=== PATIENT | male | born 1945 | race Caucasian/White ===

== ENCOUNTER 2024-11-05 22:46 | Inpatient (IN) | payer MEDICARE, BC, SELFPAY ==
[2024-11-05] VITALS (8 sets, daily range): BP systolic 104–132; BP diastolic 52–79; BMI 22.2
[2024-11-05 16:04] LABS: % Basophils 0.3 % (0-2); % Eosinophils 0.2 % (0-6); % Immature Granulocytes 0.3 % (0-0.5); % Lymphocytes 11.5 % (20.5-51.1); % Monocytes 9.6 % (1.7-9.3); % Neutrophils 78.1 % (42.2-75.2); Absolute Monocytes 0.8 10^3/uL (0.1-0.6); Absolute Neutrophils 6.8 10^3/uL (1.4-6.5); Hemoglobin 14.2 g/dL (13.0-18.0); Mean Corp Hgb Conc. 34.6 g/dL (33.0-37.0); Mean Corpuscular Hgb 32.9 pg (27.0-31.0); Mean Corpuscular Volume 94.9 fL (80.0-94.0); Mean Platelet Volume 10.4 fL (7.4-10.4); Nucleated Red Blood Cells % 0 % (-); Platelet Count 138 10^3/uL (130-400); Red Blood Cell Count 4.32 10^6/uL (4.70-6.10); Red Cell Dist. Width 14.6 % (11.5-14.5); White Blood Cell Count 8.8 10^3/uL (4.8-10.8)
[2024-11-05 16:21] LABS: ALT (SGPT) 20 U/L (0-50); AST (SGOT) 20 U/L (17-59); Albumin 3.4 g/dl (3.5-5.0); Alkaline Phosphatase 88 U/L (38-126); Blood Urea Nitrogen 40 mg/dl (9-20); Calcium 9.2 mg/dl (8.4-10.2); Carbon Dioxide 23 mmol/L (22-30); Glucose 107 mg/dl (70-99); Total Bilirubin 1.5 mg/dl (0.2-1.3); Total Protein 6.3 g/dl (6.3-8.2); eGFR 55.19
[2024-11-05 16:30] LABS: Troponin I 0.056 ng/ml
[2024-11-05 16:36] LABS: Chloride 99 mmol/L (98-107); Potassium 4.5 mmol/L (3.5-5.1); Sodium 130 mmol/L (135-145)
--- NOTE | 2024-11-05 19:25 | ED.GENMED ---
History of Present Illness
General
Chief Complaint: Breathing Problem
Time Seen by Provider: 11/05/24 18:15
History of Present Illness
History of Present Illness:
79-year-old male with history of CHF presently with a life vest in place, CAD status post CABG, A-fib on Xarelto, hypertension presenting to the emergency department for shortness of breath. Patient has been following with [facility]
[place] for his cardiac care, was admitted to their facility from 09/28 to 10/06 for what sounds like acute on chronic CHF. Patient arrives with daughter who notes that he had fluid on his lungs on on his heart with diuretics. He was discharged
home, however had been living in [place]. He recently moved to this area with daughter. He has been doing well with home health care, however in the past 3 days has had increased difficulty breathing and dyspnea on exertion. Denies cough or
fever. Denies chest pain. LifeVest was just placed last . Notes compliance with his medications. Denies additional acute medical complaints
Phy Exam
Physical Exam
Physical Exam:
General: Well-appearing, no clinical signs of dehydration, nontoxic and in no acute distress
HEENT: protecting airway
Neck: appears supple
CV: Normal heart rate, regular rhythm
Resp: Mild tachypnea with lungs clear to auscultation
Abd: Soft and non-distended, no tenderness to palpation, normal bowel sounds
Extremities: No deformities, no swelling, no erythema
Neuro: alert, no focal neurologic deficit
: deferred
Rectal: deferred
Psych: Normal affect
Skin: Intact
Scores
Heart Failure Risk
Heart Failure Risk Score: Yes
History of Stroke or TIA: No
History of intubation for respiratory distress: No
Heart rate on ED arrival >/= 110: No
SaO2 <90% on arrival on room air: Yes
HR >/=110 during 3min walk test (or too ill to perform test): Yes
ECG has acute ischemic changes: No
Urea >/=12mmol/L (BUN 33.6mg/dL): No
Serum CO2>/=35mmol/L: No
Troponin I or T elevated to ND Level (0.4mg/dL): Yes
NT-proBNP >/=5,000ng/L (5,000pg/ml): Yes
HF Risk Score: 6
Admission Status: VERY HIGH RISK 55.3% Consider admission to hospital
Course
Orders/Labs/Results
Orders:
Orders
11/05/24 14:36
Electrocardiogram (*1) Urgent
Reason for Study: Chest Pain
11/05/24 Dinner
Cholesterol Lowering
At Your Request: Full Participation
Cholesterol Lowering: Sodium, 2 Gram
11/05/24 15:49
Complete Blood Count/With Diff Urgent
Comprehensive Metabolic Panel Urgent
NT-proBNP Urgent
Comment: ADD ON
Troponin I Urgent
11/05/24 18:34
CT Chest PE Study Urgent
Comment:
Reason For Exam: SOB, hypoxic
11/05/24 19:24
Electrocardiogram (*1) Urgent
Reason for Study: Shortness of Breath
11/05/24 19:49
Troponin I Urgent
11/05/24 20:55
Cefepime HCl [Maxipime] 2,000 mg IV NOW STA
Vancomycin [Vancocin] 1,500 mg 0.9% Sodium Chloride 500 ml [Nss] 500 ml IV NOW
11/05/24 22:00
Flush (0.9% Sodium Chloride) [Flush (Nss)] See Dose Instructions IV PER PROTOCOL
11/05/24 22:35
Admit/Transfer Patient As Directed
Co-Sign Provider:
Level of Care: Inpatient admission
Assign to:: IMU- Intermediate Care
Physician / Group: jesus alberto bullard
Diagnosis: Pneumonia, hypoxic respiratory insufficiency
Reason for Hospitalization: pneumonia, hypoxic respiratory insufficiency
Expected length of stay greater than two midnights?: Yes
ELOS- Estimated Length of Stay in days: 3
I certify the patient meets the requirements for IP care: Yes
PRN Pain Medication Management As Directed
May give lesser potent ordered pain med per pt: Yes
preference::
Protocol:: Medication orders for pain may be administered in a
manner that supports deferring to patient preference
when the pt is:
- Requesting an ordered lesser potent pain medication.
Least to most potent pain medications are defined
as: acetaminophen < NSAID < tramadol < opioids
(morphine, oxycodone, hydromorphone).
- Requesting a lesser dose of the same medication IF
ORDERED.
- Requesting a less intrusive route of administration
if both routes are prescribed by the provider (PO <
IV).
11/05/24 22:37
Code Status As Directed
Resuscitation Status: Full Code
11/05/24 22:43
MRSA Screen Routine
MARY KAY Source: Nose
Specimen Description:
11/05/24 23:37
Albuterol [ProAIR HFA INHALER] 2 puff INH R Q6HPRN PRN
Nitroglycerin Sublingual [Nitrostat (Sublingual)] 0.4 mg SL [id number] PRN
11/05/24 23:37
Respiratory Culture/Gram Stain Urgent
MARY KAY Source: Sputum
Specimen Description:
Activity As Directed
Activity Level: Out of Bed-Early Mobility
Intake/ Output As Directed
Frequency: Per unit guidelines
Vital Signs As Directed
Frequency: Per unit guidelines
Weight As Directed
Frequency: Daily
Type of Scale: Standing Scale
Comment: Daily morning weight. If unable to stand, use balanced bed scale.
Weight As Directed
Frequency: Once
Type of Scale: Standing Scale
Comment: Upon Admission. If unable to stand, use balanced bed scale.
O2 Therapy [RESP] Routine
Titrate/Wean O2 to maintain O2 sat greater than (%): 93
Special Instructions: Wean as tolerated
Rx Pep / Acapela [RESP] Routine
Pt Eval And Treat Routine
Activity Level: Out of Bed-Early Mobility
11/06/24 00:00
Doxycycline Hyclate [Vibramycin] 100 mg 0.9% Sodium Chloride 250 ml [Nss] 250 ml IV Q12H
11/06/24 06:00
Cefepime HCl [Maxipime] 1,000 mg IV Q8H
11/06/24 06:22
Basic Metabolic Panel IN AM
Complete Blood Count/No Diff IN AM
11/06/24 08:00
Ascorbic Acid [Vitamin C] 250 mg PO DAILY
Brimonidine [Alphagan 0.2% Eye Drops] 1 drop RIGHT EYE BID
Cholecalciferol (Vitamin D3) [VITAMIN D3 (cholecalciferol)] 25 mcg PO DAILY
Dapagliflozin [Farxiga] 10 mg PO DAILY
Fluticasone/Salmeterol 115/21 [Advair Hfa 115/21 Mcg Inhaler] 2 puff INH R BID
Furosemide [Lasix] 40 mg PO DAILY
Ipratropium/Albuterol Sulfate [Duoneb] 3 ml INH R QID
Metoprolol Xl [Toprol Xl] 25 mg PO BID
Montelukast Sodium [Singulair] 10 mg PO DAILY
Multivitamin [Theragran] 1 tablet PO DAILY
Ofloxacin [Ocuflox] 1 drop RIGHT EYE BID
Prednisolone Acetate [Pred Forte 1% Eye Drops] 1 drop RIGHT EYE BID
Rivaroxaban [Xarelto] 20 mg PO DAILY
Sacubitril 24/Valsartan 26 [Entresto 24 mg/26 mg] 1 tab PO BID
11/06/24 22:00
Melatonin 5 mg PO HSPRN PRN
Abnormal Lab Results
11/05/24 11/05/24
15:49 19:49
RBC 4.32 L 10^6/uL
(4.70-6.10)
MCV 94.9 H fL
(80.0-94.0)
MCH 32.9 H pg
(27.0-31.0)
RDW 14.6 H %
(11.5-14.5)
Absolute Neuts (auto) 6.8 H 10^3/uL
(1.4-6.5)
Absolute Lymphs (auto) 1.0 L 10^3/uL
(1.2-3.4)
Absolute Monos (auto) 0.8 H 10^3/uL
(0.1-0.6)
Neutrophils % 78.1 H %
(42.2-75.2)
Lymphocytes % 11.5 L %
(20.5-51.1)
Monocytes % 9.6 H %
(1.7-9.3)
Sodium 130 L mmol/L
(135-145)
BUN 40 H mg/dl
(9-20)
Glucose 107 H mg/dl
(70-99)
Total Bilirubin 1.5 H mg/dl
(0.2-1.3)
Troponin I 0.056 H* ng/ml 0.042 H* ng/ml
Albumin 3.4 L g/dl
(3.5-5.0)
11/05/24 15:49
11/05/24 15:49
Vital Signs
Initial and Last Documented VS:
Initial Vital Signs
BP Pulse Ox
132/79 92
11/05/24 14:29 11/05/24 14:29
Last Documented Vital Signs
Temp Pulse Resp BP Pulse Ox
97.8 F 95 18 116/86 92
11/07/24 03:36 11/07/24 08:32 11/07/24 07:32 11/07/24 08:32 11/07/24 07:32
MDM/Problems Addressed
MDM/Problems Addressed:
79-year-old male with history of CAD status post CABG, CHF currently with LifeVest in place, hypertension, A-fib on Xarelto presenting for shortness of breath for 3 days. Vital signs on arrival are reportedly normal, however upon examination, noted
to be satting at 87% on room air.
On exam, patient is slightly tachypneic, no acute distress. Lung exam is relatively unremarkable. Patient's history, recent admission for CHF, symptom presentation, ultimate concern for acute on chronic CHF. No lower extremity edema. However
patient notes that he felt very similarly during his previous admission at [facility]. No records available at this hospital. Attempting to get records at this time. Plan for laboratory analysis. Will also plan for CT chest
imaging, in the setting of hypoxia. Daughter notes that patient has had fluid around his heart. Pericardial effusion is also consideration.
19:00 -initial labs shows slightly elevated troponin. No prior for comparison. EKG shows diffuse T wave inversions, however no prior for comparison. Will send repeat troponin and EKG
20: Second troponin without any elevation. EKG remains stable. BNP is elevated. CT of the chest shows concern for multifocal pneumonia. On reassessment, patient does note mild cough that has been ongoing. Plan for admission for antibiotics and
continued monitoring given presenting hypoxia
*EKG
Interpreted by ED Provider?: Yes
EKG Intrepretation Date: 11/05/24
EKG Intrepretation Time: 19:33
Interpretation: abnormal
Comparison EKG: no comparison EKG present
Heart Rate: 73
Rate: normal
Rhythm: sinus
[place]: normal axis
Interval: normal interval
QRS Pattern: right bundle branch block
Ischemia: T-wave inversion
*Critical Care Note
Total Time (30-74mins, 75-104mins- exclusive of procedures): Not Applicable
ED Attending Note
-
Portions of this chart may have been created with voice recognition software.� Occasional wrong word or��sound alike� substitutions may have occurred due to the inherent limitations of voice recognition software.
Discharge Plan
Departure
Patient Disposition: Admit
Date of Disposition: 11/05/24
Time of Disposition: 20:55
Presentation/result/management discussed w/ accepting MD/DO: Hospitalist
Patient with high blood pressure during this ER visit?: No
Condition: Fair
Discharge Problem:
Multifocal pneumonia, Hypoxia
Interventions
Interventions:
*Risk Screen - Suicide Last Done: 11/05/24 23:51
*General Assessment Last Done: 11/05/24 18:51
*Neglect/Abuse Screening Last Done: 11/05/24 23:51
*ED- Fall Risk Assessment Last Done: 11/05/24 18:51
*ED COVID-19 Vaccine History Last Done: 11/05/24 18:51
*Nursing Disposition Last Done: 11/05/24 23:51
ED- Cardiac Assessment Last Done: 11/05/24 20:43
Discharge Date and Time
Discharge Date/Time: 11/05/24 23:51
[2024-11-05 19:54] LABS: NT-proBNP 6580 pg/ml
[2024-11-05 20:21] LABS: Troponin I 0.042 ng/ml
--- NOTE | 2024-11-05 21:57 | HPS.HSE ---
Family Physician
-
Family Physician: * NONE
Chief Complaint
-
shortness of breath
History of Present Illness
Patient is an 79-year-old male with past medical history of CHF, CAD, a-fib and hypertension who presented to [facility] ED for evaluation of shortness of breath. Patient with recent hospitalization at [facility] for similar 09/28/24-10/06/24. Patient
states he was doing well until the last 3 days where he has had dyspnea on exertion and increased fatigue. Patient follows with Cardiology at [facility], was recently living in [place] and recently moved to area with daughter. Last he had a life
vest placed. Patient reports the chills on and off the past few days. Denies any fevers, chest pain, nausea, vomiting, constipation or diarrhea.
Medical History
Past Medical History
Past Medical History: Reports Other
Additional Past Medical History:
CHF
CAD
a-fib
hypertension
Past Surgical History: Reports Other
Additional Past Surgical History:
cataract extraction
7eye surgeries in last 3 years
cornea transplant
Social History
Tobacco: Former Smoker
Alcohol: None
Drug: None
Living: With Family
Family History
Family History: Not pertinent
Allergies / Home Medications
Allergies reflects when Allergies were last updated in [facility].
Home Medications with original date entered in [facility]
Allergy/Medication List:
Allergies
Allergy/AdvReac Type Severity Reaction Status Date / Time
atorvastatin Allergy Unknown Verified 11/05/24 14:34
clarithromycin [From Biaxin] Allergy Unknown Verified 11/05/24 14:35
pantoprazole Allergy Unknown Verified 11/05/24 14:35
Home Medications
albuterol sulfate 90 mcg/actuation aerosol inhaler 2 puff inhalation R Q6HPRN PRN sob 11/05/24
ascorbic acid (vitamin C) 250 mg tablet (Vitamin C) 250 mg PO DAILY 11/05/24
brimonidine 0.2 % eye drops 1 drp RIGHT EYE BID 11/05/24
cholecalciferol (vitamin D3) 25 mcg (1,000 unit) tablet (Vitamin D3) 25 mcg PO DAILY 11/05/24
dapagliflozin propanediol 10 mg tablet (Farxiga) 10 mg PO DAILY 11/05/24
doxylamine succinate 25 mg tablet 12.5 mg PO HS 11/05/24
evolocumab 140 mg/mL subcutaneous pen injector (Repatha SureClick) 140 mg SC Q2W 11/05/24
fluticasone fur. 100 mcg-umeclid 62.5 mcg-vilant 25 mcg inhalat.powder (Trelegy Ellipta) 1 inh inhalation R DAILY 11/05/24
furosemide 40 mg tablet 40 mg PO DAILY 11/05/24
metoprolol succinate 25 mg tablet,extended release 24 hr 25 mg PO BID 11/05/24
montelukast 10 mg tablet 10 mg PO DAILY 11/05/24
nitroglycerin 0.4 mg sublingual tablet 0.4 mg sublingual [id number] PRN chest pain 11/05/24
ofloxacin 0.3 % eye drops 1 drp RIGHT EYE BID 11/05/24
prednisolone acetate 1 % eye drops,suspension 1 drp RIGHT EYE BID 11/05/24
rivaroxaban 20 mg tablet (Xarelto) 20 mg PO DAILY 11/05/24
sacubitril 24 mg-valsartan 26 mg tablet (Entresto) 1 tab PO BID 11/05/24
therapeutic multivitamin 1 tab PO DAILY 11/05/24
Review of Systems
-
History Source: Patient
Constitutional: Reports Chills
EENT: Reports No Symptoms
Respiratory: Reports Cough and Trouble Breathing (exertional dyspnea )
Cardiac: Reports No Symptoms
Abdomen/GI: Reports No Symptoms
: Reports No Symptoms
Musculoskeletal: Reports No Symptoms
Skin: Reports No Symptoms
Neurological: Reports No Symptoms
Endocrine: Reports No Symptoms
Hematologic/Lymphatic: Reports No Symptoms
Psych: Reports No Symptoms
Physical Exam
Vital Signs
Vital Signs
Temp Pulse Resp BP Pulse Ox
97.3 F 69 24 106/65 99
11/05/24 18:47 11/05/24 18:47 11/05/24 18:47 11/05/24 18:47 11/05/24 18:47
Physical Exam
General: Well Developed, Well Nourished, No Apparent Distress, Comfortable and Conversant
HEENT: NormoCephalic, Moist mucous membranes, Atraumatic, [place] Conjunctivae, Nose Appears Normal and Ears Appear Normal
Respiratory: Clear and Non Labored Respirations
Cardiac: S1/S2 and Regular Rhythm
Breast: Deferred by me
GI: Soft, Non Tender, Non Distended and Normal Bowel Sounds
Rectal: Deferred by Provider
Genito-urinary: Deferred by me
Musculoskeletal: No Clubbing, No Cyanosis and No Edema
Skin: Warm and IV/Catheter Site
Neuro: Awake, Alert, AO x 3 and Nonfocal/grossly intact
Psych: Calm and Intact Judgment/Insight
Laboratory Results
-
11/05/24 15:49
11/05/24 15:49
Laboratory Results
Total Bilirubin 1.5 mg/dl (0.2-1.3) H 11/05/24 15:49
AST 20 U/L (17-59) 11/05/24 15:49
ALT 20 U/L (0-50) 11/05/24 15:49
Alkaline Phosphatase 88 U/L (38-126) 11/05/24 15:49
Troponin I 0.042 ng/ml H* 11/05/24 19:49
Data Reviewed
-
CT Scan: Report Reviewed by me (Chest: 1. No evidence of central pulmonary embolism. 2. There is a 2.2 cm consolidation with air bronchograms in the lateral right upper lobe as well as a 3.4 cm consolidation with air bronchogram in the lateral right
middle lobe with air bronchogram. Findings likely represent multifocal pneumonia, )
Medical Tests (Nuc Med, Echo, EKG etc): Report Reviewed by me (EKG: ACCELERATED JUNCTIONAL RHYTHM WITH OCCASIONAL PREMATURE VENTRICULAR COMPLEXES LEFT AXIS DEVIATION INCOMPLETE RIGHT BUNDLE BRANCH BLOCK INFERIOR INFARCT (CITED ON OR BEFORE
05-NOV-2024) POSSIBLE ANTEROLATERAL INFARCT (CITED ON OR BEFORE 05-NOV-2024))
Lab Data: Labs Reviewed by me (WBC 8.8, Neut 78.1, Trop 0.056, 0.042, BNP 6580)
Impression/Plan
-
IMPRESSION/PLAN:
#pneumonia
wbc 8.8, Neut 78.[address]: 1. No evidence of central pulmonary embolism.
2. There is a 2.2 cm consolidation with air bronchograms in the lateral right upper lobe as well as a 3.4 cm consolidation with air bronchogram in the lateral right middle lobe with air
bronchogram. Findings likely represent multifocal pneumonia, however short interval follow-up CT is recommended to ensure resolution. There is associated 1.0 cm right hilar lymph
node which may be reactive.
3. Severe apical predominant emphysematous changes.
4. There is pronounced right ventricular and right atrial dilation.
5. There is mild prominence of the main pancreatic duct measuring 5 mm the pancreatic head. Correlation with prior imaging if available would be helpful to evaluate stability.
- Admit to IMU
- IV antibiotics
- supportive care
- Chest x-ray in AM
#COPD
- DuoNeb QID
- continue albuterol PRN and Trelegy
#CHF
Life Vest in place
- continue Farxiga, furosemide and Entresto
- daily weights
- I & O s
#CAD
- continue Nitroglycerin PRN
#a-fib
EKG: ACCELERATED JUNCTIONAL RHYTHM WITH OCCASIONAL PREMATURE VENTRICULAR COMPLEXES
LEFT AXIS DEVIATION
INCOMPLETE RIGHT BUNDLE BRANCH BLOCK
INFERIOR INFARCT (CITED ON OR BEFORE 05-NOV-2024)
POSSIBLE ANTEROLATERAL INFARCT (CITED ON OR BEFORE 05-NOV-2024)
#hypertension
- continue furosemide and metoprolol
Code status: full code
DVT prophylaxis: Xarelto
[2024-11-05] MEDS: MAXIPIME 2000 MG IV (21:58)
[2024-11-05] MEDS: VANCOCIN 530 MG IV (21:59)
--- NOTE | 2024-11-05 22:40 | W.PN.UPDATE ---
Update Note
Progress Note Update
Patient seen in conjunction with JARRED. I agree depends on history and physical I concur with assessment and plan listed otherwise.
This is an 79-year-old with past medical history significant for atrial fibrillation on Xarelto, CAD, reactive airways disease, hyperlipidemia, congestive heart failure who was recently pain for CHF exacerbation and now presents to the emergency
department for approximately 2 to 3 days of fatigue weakness shortness of breath and a nonproductive cough.
Patient reported that when he went to the pain he had dyspnea on exertion orthopnea PND and was found to be in marked volume overload. He reports that he had 'fluid around his heart lungs'. He was diuresed with removal of around 10 pounds of
fluid. He did have exploratory cardiac cath and echocardiogram and he tells me that he has ejection fraction of around 26% and a 'leaky valves'. During his stay he did have a run of V. tach. After discharge patient was placed on a LifeVest. He
reports he has been doing well up until 2 to 3 days ago when he started feeling weak and lethargic. [place] short of breath with dyspnea on exertion as well as nonproductive cough. Denies any wheezing. Denies having fevers or chills. He denies any
lower extremity swelling or weight gain. After 2 to 3 days he told his family that he had to get checked out because he does not feel that this was his usual self.
In the emergency department he was afebrile, blood pressure was 106/65 with a pulse of 69 and he was satting about 88% on room air. ECG shows a sinus rhythm with a rate of 73 with incomplete right bundle. His troponin was 0.04, BNP was 6500.
Repeat troponin was flat.
CBC was unremarkable with a white count of 8.8, hemoglobin and platelets were normal. Electrolytes and BUN/creatinine were normal.
He had a CT PE study which was negative for PE, he has multiple consolidations in the right upper and right middle lobe.
His clinical picture is consistent with multifocal infiltrates secondary to pneumonia. There is no evidence of acute volume overload without peripheral edema pulmonary edema or pleural effusion. He has no pericardial effusion. He appears to be
euvolemic.
Multifocal pneumonia�recent hospitalization with discharge within the last 2 months, severe CHF and valvular dysfunction, mild hypoxia, emphysema.
- admit to IMU (life vest)
- continue IV abx for pna, cefepime/doxy for now
- check mrsa
- check legionella and strep urinary ag
- blood cultures if spike
- supportive measures with incentive spirometry, nebs and cough suppressants
- consider pulmonary consult
CHF - stable severe CHF. EF < 30% on Life Vest. Euvolemic here.
- continue lasix 40 daily with hold parameters
- continue GDMT, metoprolol succinate 25 bid, entresto and jardiance
- patient to continue life vest
- consider getting records from [facility]
- has outpatient follow ulp
AFIB - sinus rhythm here
- continue beta mundo and Xarelto
DVT PPX - on Xarelto
Code status - full code
[2024-11-06] VITALS (21 sets, daily range): BP systolic 85–114; BP diastolic 43–94; PULSE 74; O2SAT 95; BMI 21.6
--- NOTE | 2024-11-06 | PTCARENOTE ---
pt admit to ICU from ER (IMU status), aaox3, denies pain, Life Vest on pt on arrival- battery removed/vest removed per protocol- no family present- to be sent home with dtr in AM to be charged for pt to wear on discharge. LAC IV WNL. CHG cloths. POC
discussed. care ongoing.
[2024-11-06] MEDS: VIBRAMYCIN 260 MG IV ×2 (01:03→12:07)
[2024-11-06] MEDS: MAXIPIME 1000 MG IV ×3 (06:12→22:24)
[2024-11-06 06:52] LABS: Hematocrit 37.1 % (39.0-52.0); Hemoglobin 12.5 g/dL (13.0-18.0); Mean Corp Hgb Conc. 33.7 g/dL (33.0-37.0); Mean Corpuscular Hgb 32.2 pg (27.0-31.0); Mean Corpuscular Volume 95.6 fL (80.0-94.0); Mean Platelet Volume 10.1 fL (7.4-10.4); Platelet Count 126 10^3/uL (130-400); Red Blood Cell Count 3.88 10^6/uL (4.70-6.10); Red Cell Dist. Width 14.6 % (11.5-14.5); White Blood Cell Count 7.7 10^3/uL (4.8-10.8)
[2024-11-06 07:07] LABS: Blood Urea Nitrogen 33 mg/dl (9-20); Calcium 8.2 mg/dl (8.4-10.2); Carbon Dioxide 22 mmol/L (22-30); Chloride 105 mmol/L (98-107); Estimated Creatinine Clearance 54 ml/min; Glucose 91 mg/dl (70-99); Potassium 4.6 mmol/L (3.5-5.1); Sodium 134 mmol/L (135-145); eGFR > 60.00
[2024-11-06] MEDS: PRED FORTE 1% EYE DROPS 1 DROP RIGHT EYE ×2 (08:04→20:26)
[2024-11-06] MEDS: OCUFLOX 1 DROP RIGHT EYE ×2 (08:04→20:26)
[2024-11-06] MEDS: ALPHAGAN 0.2% EYE DROPS 1 DROP RIGHT EYE ×2 (08:04→20:25)
[2024-11-06] MEDS: FARXIGA 10 MG PO (08:05)
[2024-11-06] MEDS: ENTRESTO 24 MG/26 MG 1 TAB PO ×2 (08:05→19:15)
[2024-11-06] MEDS: VITAMIN C 250 MG PO (08:05)
[2024-11-06] MEDS: SINGULAIR 10 MG PO (08:05)
[2024-11-06] MEDS: XARELTO 20 MG PO (08:06)
[2024-11-06] MEDS: TOPROL XL 25 MG PO ×2 (08:06→19:15)
[2024-11-06] MEDS: LASIX 40 MG PO (08:06)
[2024-11-06] MEDS: VITAMIN D3 (cholecalciferol) 25 MCG PO (08:06)
[2024-11-06] MEDS: THERAGRAN 1 TABLET PO (08:06)
[2024-11-06] MEDS: ADVAIR HFA 115/21 MCG INHALER 2 PUFF INH ×2 (08:39→21:19)
[2024-11-06] MEDS: DUONEB 3 ML INH ×4 (08:39→21:19)
--- NOTE | 2024-11-06 08:44 | PTCARENOTE ---
Assumed care at 0700. Assessment as noted. Pt sitting at side of bed eating breakfast. No complaints at this time. Plan of care discussed.
--- NOTE | 2024-11-06 10:05 | CM ---
CM following re: discharge planning.
Reviewed pt's chart, met with pt.
Pt is an 79 year old male, admitted with primary dx of Pneumonia. PMH includes: CHF, CAD, a-fib and hypertension
Pt reports he lives with [facility] in [facility], was recently at [facility] and staying in daughter's house in [facility]. Pt reports he was discharged from [facility] with [facility] and pt is requested to have [facility] at discharge. Pt reports he does not use any mobile devices, has home Oxygen and requires 3L NC at baseline. Pt expressed his desire to return [place] to daughter's house at discharge.
Daughter Owen correct phone number: [phone].
CM spoke to [place] [facility] liaison Chastity and she confirmed that pt is current with [facility]. A referral to [facility] made.
PCP: Eric PETERS
Pharmacy: [facility] till stays with daughter.
D/C plan: home to daughter's house with [facility] and family support. Daughter to transport at discharge.
CM will follow with discharge plan updates as hospitalization progresses.
[2024-11-06] MEDS: STERILE WATER FOR INJECTION 10 ML IV ×2 (13:30→22:24)
--- NOTE | 2024-11-06 14:59 | W.PN.HOSP.TC ---
Today's Communication/Plan
-
Continue antibiotic
Assessment / Plan
Assessment / Plan
Impression:
Patient is an 79-year-old male with past medical history of CHF, CAD, a-fib and hypertension who presented to the ER for evaluation of shortness of breath. Patient with recent hospitalization at [facility] for similar 09/28/24-10/06/24. Patient
states he was doing well until the last 3 days where he has had dyspnea on exertion and increased fatigue. Patient follows with Cardiology at [place], was recently living in [place] and recently moved to area with daughter. Last he had a life
vest placed. Patient reports the chills on and off the past few days. Denies any fevers, chest pain, nausea, vomiting, constipation or diarrhea.
Ct chest shows:
1. No evidence of central pulmonary embolism.
2. There is a 2.2 cm consolidation with air bronchograms in the lateral right upper lobe as well as a 3.4 cm consolidation with air bronchogram in the lateral right middle lobe with air bronchogram. Findings likely represent multifocal pneumonia,
however short interval follow-up CT is recommended to ensure resolution. There is associated 1.0 cm right hilar lymph node which may be reactive.
3. Severe apical predominant emphysematous changes.
4. There is pronounced right ventricular and right atrial dilation.
5. There is mild prominence of the main pancreatic duct measuring 5 mm the pancreatic head. Correlation with prior imaging if available would be helpful to evaluate stability.
Started on cefepime and vancomycin admitted to the IMU, patient is doing good and will be downgraded to telemetry.
Assessment/plan:
Multifocal pneumonia�recent hospitalization with discharge within the last 2 months, severe CHF and valvular dysfunction, mild hypoxia, emphysema.
Patient initially admitted to IMU for LifeVest, will downgrade to telemetry floor
continue IV abx for pna, cefepime/Doxy for now
MRSA screen pending
Overall symptoms improved, continue breathing treat
Chronic systolic CHF - stable severe CHF. EF < 30% on Life Vest. Euvolemic here.
- continue lasix 40 daily with hold parameters
- continue GDMT, metoprolol succinate 25 bid, entresto and jardiance
- patient to continue life vest
- consider getting records from [place]
- has outpatient follow ulp
Paroxysmal atrial fibrillation
-Currently sinus rhythm here
- continue beta mundo and Xarelto
CODE STATUS: Full code
DVT prophylaxis: Xarelto
Diet: cardiac diet
Total time spent on today's encounter was 75 minutes which included time spent in counseling the patient/family regarding diagnosis and treatment plan as listed above, goals of care, and symptom management. Case was discussed with nursing staff,
specialists, and care coordinators/case management. All labs and imaging personally reviewed by me. Remainder the time spent in detailed review of previous records, lab data, imaging, and other medical provider documentation.
Anticipated Discharge: > 48 hours
Subjective/Interval History
-
Date of Service: November 06, 2024
Patient seen and examined at bedside, denies any chest pain , shortness of breath Improved, no abdominal pain, no nausea, no vomiting, no diarrhea or constipation.
Admitted last night with pneumonia.
Objective Data
-
Labs:
Laboratory Results
11/06/24
06:22
WBC 7.7
Hgb 12.5 L
Hct 37.1 L
Plt Count 126 L
Sodium 134 L
Potassium 4.6
Chloride 105
Carbon Dioxide 22
BUN 33 H
Creatinine 1.0
Glucose 91
Calcium 8.2 L
Vital Signs:
Vital Signs
Temp Pulse Resp BP Pulse Ox
97.4 F 85 20 104/45 95
11/06/24 11:15 11/06/24 13:45 11/06/24 13:45 11/06/24 13:00 11/06/24 13:45
I&O
11/05/24 11/06/24 11/07/24
06:59 06:59 06:59
Intake Total 360 / 360
Output Total 325 / 325 150 / 150
Balance -325 / -325 210 / 210
Physical Exam
-
General: Well Developed, Well Nourished and No Apparent Distress
HEENT: Normocephalic, Atraumatic, Moist Mucous Membranes, No Ptosis, PERRLA and Nose Appears Normal
Respiratory: Rales, Rhonchi, Crackles and Non Labored Respirations
Cardiac: Regular Rhythm and S1/S2
Breast: Deferred by me
GI: Soft, Nontender, Nondistended and Normal Bowel Sounds
Genito-urinary: No Costovertebral Tender
Musculoskeletal: No Clubbing, No Cyanosis and No Edema
Skin: Warm
Neuro: Awake, Alert, Oriented, AO x 3 and No Motor Deficits
Psych: Calm
Data Reviewed
-
Diagnostic Radiology: Image personally visualized and interpreted and Report Reviewed by me
CT Scan: Image personally visualized and interpreted and Report Reviewed by me
Ultrasound: Image personally visualized and interpreted and Report Reviewed by me
MRI: Image personally visualized and interpreted and Report Reviewed by me
Medical Tests (Nuc Med, Echo etc): Image personally visualized and interpreted and Report Reviewed by me
Labs: Labs Reviewed by me
Old Records: Reviewed
--- NOTE | 2024-11-06 19:23 | PTCARENOTE ---
Received pt sitting in the chair. He is [place] [employer] on the left and blind i the left eye. Weak peripheral pulses. Trace L/E edema. Pt has been in the chair most of the day. Left AC & right FA iv's flushed and patent. Lungs CTA. RA saturation 95%. Occasional
moist productive cough. Pt swallows the phlegm. +BSx4. Reports BM today. Voids in BR. He stated his daughter already brought in a new battery for his lifevest. Reviewed medications for the night. Safe environment maintained.
[2024-11-06] MEDS: NON-FORMULARY ITEM 0.5 UNIT PO (20:26)
[2024-11-07] VITALS (7 sets, daily range): BP systolic 91–138; BP diastolic 58–86; BMI 21.9
--- NOTE | 2024-11-07 00:02 | PTCARENOTE ---
Pt assisted back to bed with minimal assist. Alert/oriented/cooperative. No c/o pain. Afebrile. NSR on monitor. IV lines flushed/patent. 3L at HS, as he wears at home as well. Lungs clear. LINK noted. Tolerating low cholesterol diet. Voids in urinal.
Will monitor.
[2024-11-07] MEDS: VIBRAMYCIN 260 MG IV ×3 (00:09→23:45)
[2024-11-07] MEDS: MAXIPIME 1000 MG IV ×3 (06:09→21:32)
[2024-11-07] MEDS: STERILE WATER FOR INJECTION 10 ML IV ×3 (06:09→21:31)
[2024-11-07 06:54] LABS: Hematocrit 34.8 % (39.0-52.0); Hemoglobin 12.1 g/dL (13.0-18.0); Mean Corp Hgb Conc. 34.8 g/dL (33.0-37.0); Mean Corpuscular Hgb 32.8 pg (27.0-31.0); Mean Corpuscular Volume 94.3 fL (80.0-94.0); Mean Platelet Volume 10.2 fL (7.4-10.4); Platelet Count 142 10^3/uL (130-400); Red Blood Cell Count 3.69 10^6/uL (4.70-6.10); Red Cell Dist. Width 14.7 % (11.5-14.5); White Blood Cell Count 5.8 10^3/uL (4.8-10.8)
[2024-11-07 07:00] LABS: Blood Urea Nitrogen 24 mg/dl (9-20); Calcium 8.5 mg/dl (8.4-10.2); Carbon Dioxide 20 mmol/L (22-30); Chloride 110 mmol/L (98-107); Estimated Creatinine Clearance 68 ml/min; Glucose 96 mg/dl (70-99); Potassium 3.8 mmol/L (3.5-5.1); Sodium 138 mmol/L (135-145); eGFR > 60.00
[2024-11-07] MEDS: ADVAIR HFA 115/21 MCG INHALER 2 PUFF INH ×2 (07:29→20:39)
[2024-11-07] MEDS: DUONEB 3 ML INH ×4 (07:29→20:39)
[2024-11-07] MEDS: VITAMIN C 250 MG PO (08:31)
[2024-11-07] MEDS: VITAMIN D3 (cholecalciferol) 25 MCG PO (08:31)
[2024-11-07] MEDS: ENTRESTO 24 MG/26 MG 1 TAB PO ×2 (08:31→21:29)
[2024-11-07] MEDS: TOPROL XL 25 MG PO ×2 (08:32→21:29)
[2024-11-07] MEDS: XARELTO 20 MG PO (08:32)
[2024-11-07] MEDS: FARXIGA 10 MG PO (08:32)
[2024-11-07] MEDS: SINGULAIR 10 MG PO (08:32)
[2024-11-07] MEDS: LASIX 40 MG PO (08:32)
[2024-11-07] MEDS: THERAGRAN 1 TABLET PO (08:33)
[2024-11-07] MEDS: PRED FORTE 1% EYE DROPS 1 DROP RIGHT EYE ×2 (08:35→21:31)
[2024-11-07] MEDS: ALPHAGAN 0.2% EYE DROPS 1 DROP RIGHT EYE ×2 (08:35→21:30)
[2024-11-07] MEDS: OCUFLOX 1 DROP RIGHT EYE ×2 (08:35→21:30)
--- NOTE | 2024-11-07 11:38 | W.PN.HOSP.TC ---
Today's Communication/Plan
-
continue pneumonia treatment
wean O2
continue nebs
PT/OT
transfer Tele
Assessment / Plan
Assessment / Plan
Assessment:
Multifocal pneumonia
- HAP
- check MRSA swab
- continue Cefepime day 2, Doxy day 2
- prn nebs
- keep RA
Chronic systolic CHF - stable severe CHF. EF < 30% on Life Vest. Euvolemic here.
- continue Lasix 40 daily with hold parameters
- continue GDMT, metoprolol succinate 25 bid, Entresto and Jardiance
- patient to continue life vest
- consider getting records from [facility]
- has outpatient follow up
Hyponatremia
- resolving
Paroxysmal atrial fibrillation
- currently sinus rhythm here
- continue beta mundo and Xarelto
DVT ppx: Xarelto
Code: Full
Anticipated Discharge: > 48 hours
Subjective/Interval History
-
Date of Service: November 07, 2024
feels less SOB
On RA (92%)
Objective Data
-
Labs:
Laboratory Results
11/07/24 11/07/24
06:10 06:11
WBC 5.8
Hgb 12.1 L
Hct 34.8 L
Plt Count 142
Sodium 138
Potassium 3.8
Chloride 110 H
Carbon Dioxide 20 L
BUN 24 H
Creatinine 0.8
Glucose 96
Calcium 8.5
Vital Signs:
Vital Signs
Temp Pulse Resp BP Pulse Ox
97.8 F 72 18 116/86 92
11/07/24 03:36 11/07/24 11:34 11/07/24 11:34 11/07/24 08:32 11/07/24 11:34
I&O
11/06/24 11/07/24 11/08/24
06:59 06:59 06:59
Intake Total 480 / 480
Output Total 325 / 325 1400 / 1400
Balance -325 / -325 -920 / -920
Physical Exam
-
General: No Apparent Distress
HEENT: Normocephalic and Atraumatic
Respiratory: Negative Wheezes
Cardiac: Regular Rhythm and S1/S2
Genito-urinary: No Costovertebral Tender
Neuro: AO x 3
Psych: Calm
Data Reviewed
-
Total Time Spent with Patient (in minutes): 42
Labs: Labs Reviewed by me
--- NOTE | 2024-11-07 13:36 | PTCARENOTE ---
pt awake and oriented , pt is oob in chair , ambulating , Afib on monitor , on room air with sat of 92% , lungs diminished , denies cough or SOB , pt seen by Dr Jc , pt to remain on IV antibiotics
--- NOTE | 2024-11-07 18:38 | PTCARENOTE ---
no change in assessments
[2024-11-07] MEDS: NON-FORMULARY ITEM 1 UNIT PO (21:31)
[2024-11-08] VITALS (8 sets, daily range): BP systolic 89–118; BP diastolic 53–74; PULSE 72; O2SAT 99; BMI 22.0
[2024-11-08 05:17] LABS: Hematocrit 39.6 % (39.0-52.0); Hemoglobin 13.6 g/dL (13.0-18.0); Mean Corp Hgb Conc. 34.3 g/dL (33.0-37.0); Mean Corpuscular Hgb 32.3 pg (27.0-31.0); Mean Corpuscular Volume 94.1 fL (80.0-94.0); Mean Platelet Volume 9.7 fL (7.4-10.4); Platelet Count 151 10^3/uL (130-400); Red Blood Cell Count 4.21 10^6/uL (4.70-6.10); Red Cell Dist. Width 14.7 % (11.5-14.5); White Blood Cell Count 5.7 10^3/uL (4.8-10.8)
[2024-11-08] MEDS: MAXIPIME 1000 MG IV (05:17)
[2024-11-08] MEDS: STERILE WATER FOR INJECTION 10 ML IV (05:17)
[2024-11-08 05:47] LABS: Blood Urea Nitrogen 20 mg/dl (9-20); Calcium 9.2 mg/dl (8.4-10.2); Carbon Dioxide 19 mmol/L (22-30); Chloride 108 mmol/L (98-107); Estimated Creatinine Clearance 69 ml/min; Glucose 91 mg/dl (70-99); Potassium 4.3 mmol/L (3.5-5.1); Sodium 138 mmol/L (135-145); eGFR > 60.00
[2024-11-08] MEDS: ADVAIR HFA 115/21 MCG INHALER 2 PUFF INH (07:23)
[2024-11-08] MEDS: DUONEB 3 ML INH (07:23)
[2024-11-08] MEDS: FARXIGA 10 MG PO (08:11)
[2024-11-08] MEDS: XARELTO 20 MG PO (08:11)
[2024-11-08] MEDS: SINGULAIR 10 MG PO (08:11)
[2024-11-08] MEDS: LASIX 40 MG PO (08:11)
[2024-11-08] MEDS: VITAMIN C 250 MG PO (08:11)
[2024-11-08] MEDS: ENTRESTO 24 MG/26 MG 1 TAB PO (08:11)
[2024-11-08] MEDS: THERAGRAN 1 TABLET PO (08:11)
[2024-11-08] MEDS: VITAMIN D3 (cholecalciferol) 25 MCG PO (08:11)
[2024-11-08] MEDS: TOPROL XL 25 MG PO (08:11)
[2024-11-08] MEDS: PRED FORTE 1% EYE DROPS 1 DROP RIGHT EYE (08:12)
[2024-11-08] MEDS: OCUFLOX 1 DROP RIGHT EYE (08:13)
[2024-11-08] MEDS: ALPHAGAN 0.2% EYE DROPS 1 DROP RIGHT EYE (08:13)
--- NOTE | 2024-11-08 09:22 | W.PN.HOSP.TC ---
Today's Communication/Plan
-
dc to home with VN
Assessment / Plan
Assessment / Plan
Assessment:
Multifocal pneumonia
- HAP
- MRSA negative
- dc on Cefdinir and Doxy, total 10 days
- prn nebs
- home O2 eval: >95% with ambulation
Chronic systolic CHF - stable severe CHF. EF < 30% on Life Vest. Euvolemic here.
- continue Lasix 40 daily with hold parameters
- continue GDMT, metoprolol succinate 25 bid, Entresto and Jardiance
- patient to continue life vest
- consider getting records from [place]
- has outpatient follow up with [facility]
Hyponatremia
- resolving
Paroxysmal atrial fibrillation
- currently sinus rhythm here
- continue beta mundo and Xarelto
DVT ppx: Xarelto
Code: Full
More than 30 minutes spent in discharge including
Final examination of the patient
Summarizing hospital stay
Instructions for continuing care to all relevant caregivers
Preparation of discharge records, prescriptions, and referral forms
Total time spent (in minutes): 41
Anticipated Discharge: Today
Subjective/Interval History
-
Date of Service: November 08, 2024
maintain sats >93% on RA
denies cp or sob
Objective Data
-
Labs:
Laboratory Results
11/08/24
05:03
WBC 5.7
Hgb 13.6
Hct 39.6
Plt Count 151
Sodium 138
Potassium 4.3
Chloride 108 H
Carbon Dioxide 19 L
BUN 20
Creatinine 0.8
Glucose 91
Calcium 9.2
Vital Signs:
Vital Signs
Temp Pulse Resp BP Pulse Ox
97.8 F 91 16 118/70 93
11/08/24 08:21 11/08/24 09:15 11/08/24 07:26 11/08/24 08:12 11/08/24 03:19
I&O
11/07/24 11/08/24 11/09/24
06:59 06:59 06:59
Intake Total 480 / 480 260 / 260
Output Total 1400 / 1400 1530 / 1530 300 / 300
Balance -920 / -920 -1270 / -1270 -300 / -300
Physical Exam
-
General: No Apparent Distress
HEENT: Normocephalic and Atraumatic
Respiratory: Negative Wheezes
Cardiac: Regular Rhythm
GI: Soft and Nontender
Genito-urinary: No Costovertebral Tender
Musculoskeletal: No Edema
Neuro: AO x 3
Psych: Calm
Data Reviewed
-
Total Time Spent with Patient (in minutes): 41
Labs: Labs Reviewed by me
--- NOTE | 2024-11-08 09:27 | W.DS.TRANS ---
DC Summary - [facility]
-
Discharge Instructions:
Discharge Diagnosis/Procedures pneumonia
Diet 2 Gram Sodium,Low Cholesterol,Restrict fluids to
48 oz
Activity As tolerated
Bathing Restrictions None
Other Services VN,PT,OT
Instructions:
Stand-Alone Forms:
Changes to Home Medications: No
Discharge Medications:
DC Medications w/original date entered in [facility]
albuterol sulfate 90 mcg/actuation aerosol inhaler 2 puff inhalation R Q6HPRN PRN sob 11/05/24
ascorbic acid (vitamin C) 250 mg tablet (Vitamin C) 250 mg PO DAILY Supplement 11/05/24
brimonidine 0.2 % eye drops 1 drp RIGHT EYE BID Eye Condition 11/05/24
cholecalciferol (vitamin D3) 25 mcg (1,000 unit) tablet (Vitamin D3) 25 mcg PO DAILY Supplement 11/05/24
dapagliflozin propanediol 10 mg tablet (Farxiga) 10 mg PO DAILY Diabetes 11/05/24
doxylamine succinate 25 mg tablet 12.5 mg PO HS Sleep 11/05/24
evolocumab 140 mg/mL subcutaneous pen injector (Repatha SureJayick) 140 mg SC Q2W High Cholesterol 11/05/24
fluticasone fur. 100 mcg-umeclid 62.5 mcg-vilant 25 mcg inhalat.powder (Trelegy Ellipta) 1 inh inhalation R DAILY Lung/Breathing Issues 11/05/24
furosemide 40 mg tablet 40 mg PO DAILY Fluid Retention/Swelling 11/05/24
metoprolol succinate 25 mg tablet,extended release 24 hr 25 mg PO BID Heart Disease/Condition 11/05/24
montelukast 10 mg tablet 10 mg PO DAILY Allergies 11/05/24
nitroglycerin 0.4 mg sublingual tablet 0.4 mg sublingual [id number] PRN chest pain 11/05/24
ofloxacin 0.3 % eye drops 1 drp RIGHT EYE BID Eye Condition 11/05/24
prednisolone acetate 1 % eye drops,suspension 1 drp RIGHT EYE BID Eye Condition 11/05/24
rivaroxaban 20 mg tablet (Xarelto) 20 mg PO DAILY Blood Clot Prevention/Tx 11/05/24
sacubitril 24 mg-valsartan 26 mg tablet (Entresto) 1 tab PO BID Heart Disease/Condition 11/05/24
therapeutic multivitamin 1 tab PO DAILY Supplement 11/05/24
cefdinir 300 mg capsule 300 mg PO BID #16 caps 11/08/24
doxycycline monohydrate 100 mg capsule 100 mg PO BID #16 caps 11/08/24
ipratropium 0.5 mg-albuterol 3 mg (2.5 mg base)/3 mL nebulization soln 3 ml inhalation R QID PRN shortness of breath or wheezing #90 mL 11/08/24
Home Medication Changes
Pending Results: No
Total time spent discharging patient (in min): 41
--- NOTE | 2024-11-08 09:58 | CM ---
CM following re: discharge planning.
Reviewed pt's chart, met with pt and spoke to pt's daughter over the phone to update on discharge plan progress.
Discharge order noted. Both pt and his daughter are aware, expressed their agreement and daughter stated she will transport pt home. IMM reviewed, placed on chart, pt has a copy.
PT and OT evaluations noted - home PT/OT recommended.
Pt's daughter stated that pt is current with [facility]. referral to [facility] made.
Please fax discharge instructions to [facility] at [phone]
D/C plan: home with [facility] and family support. Daughter to transport.
[2024-11-08] MEDS: VIBRAMYCIN IV (12:42)
--- NOTE | 2024-11-08 12:54 | PTCARENOTE ---
Rec'd pt at 0700. Pt AAOx3, follows commands, NICOLAS. Ambulatory in room, sitting OOB in chair throughout morning. Monitor SR, in and out of Afib/Aflutter at times. SBP 90-100's. Lungs with right basilar rales, pox 95% RA. +BS, abd soft/nt. Vdg yellow
urine via urinal. Discharge instructions rec'd, reviewed with pt and pt's daughter. Life vest reapplied by daughter for discharge. Peripheral IV's and monitor dc'd. Pt discharged to home at approx 1245.
== END 2024-11-08 13:02 | disposition home health service (06) | DRG 194 ==
LOC: ICU 22:46
PROVIDERS: General Practice; Nurse Practitioner Family; ADMITTING PHYSICIAN Internal Medicine; ATTENDING PHYSICIAN Internal Medicine; EMERGENCY PHYSICIAN Student in an Organized Health Care Education/Training Program
DX: J18.9 Pneumonia, unspecified organism (principal); E87.1 Hypo-osmolality and hyponatremia; I50.22 Chronic systolic (congestive) heart failure; J44.0 Chronic obstructive pulmonary disease with (acute) lower respiratory infection; R09.02 Hypoxemia; I11.0 Hypertensive heart disease with heart failure; I48.0 Paroxysmal atrial fibrillation; I25.10 Atherosclerotic heart disease of native coronary artery without angina pectoris; Z87.891 Personal history of nicotine dependence; Z88.8 Allergy status to other drugs, medicaments and biological substances; I45.10 Unspecified right bundle-branch block; Z95.1 Presence of aortocoronary bypass graft
CPT/HCPCS: 71275; 80048; 80053; 83880; 84484; 85025; 85027; 87070; 93005; 94640; 96365; 96375; 97163; 97166; 99285; Q9967

== ENCOUNTER 2024-12-04 04:44 | Inpatient (IN) | payer MEDICARE, BC, SELFPAY ==
[2024-12-03 22:29] VITALS: BP 102/41
[2024-12-03 22:41] VITALS: BP 105/57
[2024-12-03 23:00] VITALS: BP 97/51
[2024-12-03 23:05] VITALS: BP 110/52
[2024-12-03 23:32] LABS: % Basophils 0.3 % (0-2); % Eosinophils 0.1 % (0-6); % Immature Granulocytes 0.5 % (0-0.5); % Lymphocytes 8.3 % (20.5-51.1); % Monocytes 9.9 % (1.7-9.3); % Neutrophils 80.9 % (42.2-75.2); Absolute Immature Granulocytes 0.1 10^3/uL (0-0.05); Absolute Lymphocytes 0.8 10^3/uL (1.2-3.4); Absolute Neutrophils 8.1 10^3/uL (1.4-6.5); Hemoglobin 14.2 g/dL (13.0-18.0); Mean Corp Hgb Conc. 33.8 g/dL (33.0-37.0); Mean Corpuscular Hgb 32.5 pg (27.0-31.0); Mean Corpuscular Volume 96.1 fL (80.0-94.0); Mean Platelet Volume 10.2 fL (7.4-10.4); Nucleated Red Blood Cells % 0 % (-); Platelet Count 130 10^3/uL (130-400); Red Blood Cell Count 4.37 10^6/uL (4.70-6.10); Red Cell Dist. Width 15.5 % (11.5-14.5)
[2024-12-03 23:55] LABS: ALT (SGPT) 19 U/L (0-50); AST (SGOT) 22 U/L (17-59); Albumin 3.6 g/dl (3.5-5.0); Alkaline Phosphatase 71 U/L (38-126); Blood Urea Nitrogen 38 mg/dl (9-20); Calcium 8.8 mg/dl (8.4-10.2); Carbon Dioxide 23 mmol/L (22-30); Chloride 103 mmol/L (98-107); Glucose 131 mg/dl (70-99); Potassium 4.7 mmol/L (3.5-5.1); Sodium 133 mmol/L (135-145); Total Bilirubin 1.3 mg/dl (0.2-1.3); Total Protein 6.5 g/dl (6.3-8.2); eGFR 55.19
[2024-12-04] VITALS (29 sets, daily range): BP systolic 59–112; BP diastolic 38–74; BMI 24.7; BMI 20.9; BMI 21.1
--- NOTE | 2024-12-04 02:17 | ED.GENMED ---
History of Present Illness
General
Chief Complaint: Weakness
Source: patient and family (Daughter)
Time Seen by Provider: 12/04/24 01:31
History of Present Illness
History of Present Illness:
Pleasant 79-year-old male presents to the emergency department with his daughter for chills, fatigue, nonproductive cough and lethargy. Patient was unable to complete physical therapy today due to his condition. Daughter is concerned because he
recently had pneumonia, and feels that he is acting similarly. Patient has a history of congestive heart failure CABG mitral regurg, hyperlipidemia and COPD. He has A-fib for which he is maintained on Xarelto. He has a Lifepak because he had a
cardiac event that put him into cardiogenic shock. The Lifepak is in the 3-month testing phase. They will decide on more permanent intervention in the near future. His ejection fraction is 26%. Patient typically lives in [facility] but
daughter brought him up here to live with her temporarily. He is realizing that this is more of a permanent thing as he probably will not be able to live alone back in [place]
Phy Exam
Physical Exam
Physical Exam:
Physical Exam
Vital signs and allergy list reviewed and agreed with.
GENERAL: Alert , in minimal to moderate apparent distress
EYE: pupils equal, EOMI, anicteric
NECK: Supple, no significant adenopathy. No masses. Trachea midline
ENT: Oropharynx is clear, mmm.
CARDIAC: Regular rate and rhythm . No M/R/G
LUNGS: Diminished breath sounds bilaterally, no acute respiratory distress, no wheezes/rales/rhonchi
ABDOMEN: Soft, without focal tenderness, no r/g, no cvat. Normal BSx4q
NEUROLOGICAL: Alert and oriented, no focal neuro deficits
SKIN: Warm and dry, skin intact.
MUSCULOSKELETAL: No edema bilaterally, well perfused. Moves all 4 extremities
PSYCH: Normal and appropriate interaction.
Eye Exam
Eye Exam: PERRL and EOMI
Cardiovascular Exam
Cardiovascular Exam: irregularly irregular and other (Lifepak in place)
Scores
Heart Failure Risk
Heart Failure Risk Score: Yes
History of Stroke or TIA: No
History of intubation for respiratory distress: No
Heart rate on ED arrival >/= 110: No
SaO2 <90% on arrival on room air: Yes
HR >/=110 during 3min walk test (or too ill to perform test): Yes
ECG has acute ischemic changes: No
Urea >/=12mmol/L (BUN 33.6mg/dL): Yes
Serum CO2>/=35mmol/L: No
Troponin I or T elevated to TX Level (0.4mg/dL): No
NT-proBNP >/=5,000ng/L (5,000pg/ml): Yes
HF Risk Score: 5
Admission Status: VERY HIGH RISK 39.8% Consider admission to hospital
Course
Orders/Labs/Results
Orders:
Orders
12/03/24 23:21
Electrocardiogram (*1) Urgent
Reason for Study: Shortness of Breath
EKG- Treatment ONCE
12/03/24 23:23
CMP [Comprehensive Metabolic Panel] Urgent
Complete Blood Count/With Diff Urgent
12/04/24 00:03
CXR2 [CR Chest - 2 Views ] Urgent
Comment:
Reason For Exam: SOB
12/04/24 02:17
Piperacillin/Tazo 4.5 Gram [Zosyn] 4.5 gram in 100 ml IV NOW
12/04/24 02:20
NT-proBNP Urgent
Troponin I Urgent
12/04/24 04:28
Admit/Transfer Patient As Directed
Co-Sign Provider:
Level of Care: Inpatient admission
Assign to:: IVU
Physician / Group: Bryce
Diagnosis: RUL Pneumonia, HFrEF
Reason for Hospitalization: RUL Pneumonia, HFrEF
Expected length of stay greater than two midnights?: Yes
ELOS- Estimated Length of Stay in days: 3
I certify the patient meets the requirements for IP care: Yes
PRN Pain Medication Management As Directed
May give lesser potent ordered pain med per pt: Yes
preference::
Protocol:: Medication orders for pain may be administered in a
manner that supports deferring to patient preference
when the pt is:
- Requesting an ordered lesser potent pain medication.
Least to most potent pain medications are defined
as: acetaminophen < NSAID < tramadol < opioids
(morphine, oxycodone, hydromorphone).
- Requesting a lesser dose of the same medication IF
ORDERED.
- Requesting a less intrusive route of administration
if both routes are prescribed by the provider (PO <
IV).
12/04/24 04:30
Code Status As Directed
Resuscitation Status: Full Code
12/04/24 04:43
PRN Pain Medication Management As Directed
May give lesser potent ordered pain med per pt: Yes
preference::
Protocol:: Medication orders for pain may be administered in a
manner that supports deferring to patient preference
when the pt is:
- Requesting an ordered lesser potent pain medication.
Least to most potent pain medications are defined
as: acetaminophen < NSAID < tramadol < opioids
(morphine, oxycodone, hydromorphone).
- Requesting a lesser dose of the same medication IF
ORDERED.
- Requesting a less intrusive route of administration
if both routes are prescribed by the provider (PO <
IV).
12/04/24 Breakfast
Regular
Fluid Restriction: 1440 mL/day (48 oz)
12/04/24 06:13
Troponin I Q6H
Acetaminophen [Tylenol] 650 mg PO Q4HPRN PRN
Albuterol Nebs [Ventolin Nebules] 2.5 mg INH R Q4HPRN PRN
Nitroglycerin Sublingual [Nitrostat (Sublingual)] 0.4 mg SL [id number] PRN
12/04/24 06:13
Activity As Directed
Activity Level: Ambulate
With Assistance
Bladder Scan As Directed
Follow Bladder Retention/Intermittent Cath Algorithm?: Yes
PRN if no void in __ hours: 6
Frequency: Per Retention Algorithm
If Bladder Scan Result >: 400
then:: Straight cath
EKG with chest pain [ECG as needed] As Directed
ECG as needed for:: Chest Pain
I/O [Intake/ Output] As Directed
Frequency: Per unit guidelines
Straight Cath As Directed
Frequency: Per Retention Algorithm
Additional Instructions: straight cath as needed per acute urinary retention algorithm for 24 hrs
Additional Instructions: for bladder scan greater than 400 mL
Vital Signs As Directed
Frequency: Per unit guidelines
Weight As Directed
Frequency: Daily
Oxygen Therapy [O2 Therapy] [RESP] Routine
Titrate/Wean O2 to maintain O2 sat greater than (%): 94
12/04/24 08:00
Dapagliflozin [Farxiga] 10 mg PO DAILY
Furosemide [Lasix] 40 mg IV DAILY
Metoprolol Xl [Toprol Xl] 25 mg PO BID
Montelukast Sodium [Singulair] 10 mg PO DAILY
Piperacillin/Tazo 3.375 Gram [Zosyn] 3.375 gram in 50 ml IV Q6H
Rivaroxaban [Xarelto] 20 mg PO DAILY
Sacubitril 24/Valsartan 26 [Entresto 24 mg/26 mg] 1 tab PO BID
brimonidine [brimonidine] See Dose Instructions RIGHT EYE BID
[id number]-[id number] [Trelegy Ellipta] See Dose Instructions INH R DAILY
ofloxacin [ofloxacin] See Dose Instructions RIGHT EYE BID
prednisolone acetate [prednisolone acetate] 1 drop RIGHT EYE BID
12/04/24 12:13
Troponin I Q6H
12/04/24 18:13
Troponin I Q6H
12/05/24 06:00
Basic Metabolic Panel IN AM
Complete Blood Count/No Diff IN AM
Abnormal Lab Results
12/03/24 12/04/24
23:23 02:20
RBC 4.37 L 10^6/uL
(4.70-6.10)
MCV 96.1 H fL
(80.0-94.0)
MCH 32.5 H pg
(27.0-31.0)
RDW 15.5 H %
(11.5-14.5)
Abs Immat Gran (auto) 0.1 H 10^3/uL
(0-0.05)
Absolute Neuts (auto) 8.1 H 10^3/uL
(1.4-6.5)
Absolute Lymphs (auto) 0.8 L 10^3/uL
(1.2-3.4)
Absolute Monos (auto) 1.0 H 10^3/uL
(0.1-0.6)
Neutrophils % 80.9 H %
(42.2-75.2)
Lymphocytes % 8.3 L %
(20.5-51.1)
Monocytes % 9.9 H %
(1.7-9.3)
Sodium 133 L mmol/L
(135-145)
BUN 38 H mg/dl
(9-20)
Glucose 131 H mg/dl
(70-99)
Troponin I 0.114 H* ng/ml
12/03/24 23:23
12/03/24 23:23
Vital Signs
Initial and Last Documented VS:
Initial Vital Signs
Temp Pulse Resp BP Pulse Ox
98.5 F 85 16 102/41 97
12/03/24 22:29 12/03/24 22:29 12/03/24 22:29 12/03/24 22:29 12/03/24 22:29
Last Documented Vital Signs
Temp Pulse Resp BP Pulse Ox
98.3 F 85 16 112/71 95
12/04/24 06:23 12/04/24 06:23 12/04/24 06:23 12/04/24 06:23 12/04/24 06:25
*Critical Care Note
Total Time (30-74mins, 75-104mins- exclusive of procedures): Not Applicable
ED Attending Note
-
Portions of this chart may have been created with voice recognition software.� Occasional wrong word or��sound alike� substitutions may have occurred due to the inherent limitations of voice recognition software.
Discharge Plan
Departure
Patient Disposition: Admit
Date of Disposition: 12/04/24
Time of Disposition: 02:56
Admit to: IVU
Presentation/result/management discussed w/ accepting MD/DO: Hospitalist
Condition: Fair
Discharge Problem:
Multifocal pneumonia, Elevated troponin, Weakness, CHF (congestive heart failure)
Interventions
Interventions:
*Risk Screen - Suicide Last Done: 12/03/24 22:29
*General Assessment Last Done: 12/03/24 23:11
*Neglect/Abuse Screening Last Done: 12/03/24 22:29
*ED- Fall Risk Assessment Last Done: 12/03/24 23:11
*ED COVID-19 Vaccine History Last Done: 12/03/24 23:10
ED- Cardiac Assessment Last Done: 12/04/24 04:10
ED- Neurological Assessment Last Done: 12/04/24 04:10
ED- Pulmonary Assessment Last Done: 12/04/24 04:10
[2024-12-04] MEDS: ZOSYN 100 IV (02:27)
[2024-12-04 02:55] LABS: NT-proBNP 8890 pg/ml; Troponin I 0.114 ng/ml
--- NOTE | 2024-12-04 04:35 | HPS.HSE ---
Family Physician
-
Family Physician: * NONE
Chief Complaint
-
SOB
History of Present Illness
Patient is an 79y M with PMH significant for A-Fib, CHF and COPD who presents to ED complaining of fatigue and SOB. Patient states that he has been having symptoms similar to his presentation in October when he was treated for multifocal
pneumonia. Patient complains of fatigue and dyspnea with minimal exertion. He has no chest pain or palpitations. His weight at home has been stable around 145 lbs. He reports mild, non-productive cough. No subjective fevers but he has had
shaking chills for the past 2-3 days.
Patient presents to ED for further evaluation and treatment.
Medical History
Past Medical History
Past Medical History: Reports Other
Additional Past Medical History:
Chronic HFrEF (LVEF = 26%)
ASCVD
Atrial Fibrillation
Hypertension
Blindness
Past Surgical History: Reports Other
Additional Past Surgical History:
cataract extraction
7 eye surgeries in last 3 years
cornea transplant x 2
Social History
Tobacco: Former Smoker
Alcohol: None
Drug: None
Living: With Family
Family History
Family History: Not pertinent
Allergies / Home Medications
Allergies reflects when Allergies were last updated in [facility].
Home Medications with original date entered in [facility]
Allergy/Medication List:
Allergies
Allergy/AdvReac Type Severity Reaction Status Date / Time
atorvastatin Allergy Unknown Verified 12/03/24 22:29
clarithromycin [From Biaxin] Allergy Unknown Verified 12/03/24 22:29
pantoprazole Allergy Unknown Verified 12/03/24 22:29
Home Medications
albuterol sulfate 90 mcg/actuation aerosol inhaler 2 puff inhalation R Q6HPRN PRN sob 11/05/24
ascorbic acid (vitamin C) 250 mg tablet (Vitamin C) 250 mg PO DAILY Supplement 11/05/24
brimonidine 0.2 % eye drops 1 drp RIGHT EYE BID Eye Condition 11/05/24
cholecalciferol (vitamin D3) 25 mcg (1,000 unit) tablet (Vitamin D3) 25 mcg PO DAILY Supplement 11/05/24
dapagliflozin propanediol 10 mg tablet (Farxiga) 10 mg PO DAILY Diabetes 11/05/24
doxylamine succinate 25 mg tablet 12.5 mg PO HS Sleep 11/05/24
evolocumab 140 mg/mL subcutaneous pen injector (Repatha SureClick) 140 mg SC Q2W High Cholesterol 11/05/24
fluticasone fur. 100 mcg-umeclid 62.5 mcg-vilant 25 mcg inhalat.powder (Trelegy Ellipta) 1 inh inhalation R DAILY Lung/Breathing Issues 11/05/24
furosemide 40 mg tablet 40 mg PO DAILY Fluid Retention/Swelling 11/05/24
metoprolol succinate 25 mg tablet,extended release 24 hr 25 mg PO BID Heart Disease/Condition 11/05/24
montelukast 10 mg tablet 10 mg PO DAILY Allergies 11/05/24
nitroglycerin 0.4 mg sublingual tablet 0.4 mg sublingual [id number] PRN chest pain 11/05/24
ofloxacin 0.3 % eye drops 1 drp RIGHT EYE BID Eye Condition 11/05/24
prednisolone acetate 1 % eye drops,suspension 1 drp RIGHT EYE BID Eye Condition 11/05/24
rivaroxaban 20 mg tablet (Xarelto) 20 mg PO DAILY Blood Clot Prevention/Tx 11/05/24
sacubitril 24 mg-valsartan 26 mg tablet (Entresto) 1 tab PO BID Heart Disease/Condition 11/05/24
therapeutic multivitamin 1 tab PO DAILY Supplement 11/05/24
ipratropium 0.5 mg-albuterol 3 mg (2.5 mg base)/3 mL nebulization soln 3 ml inhalation R QID PRN shortness of breath or wheezing #90 mL 11/08/24
Review of Systems
-
History Source: Patient
A 12 point ROS was completed and negative except as noted: Yes
Constitutional: Reports Fatigue and Chills; Denies Fever
EENT: Denies Sore Throat
Respiratory: Reports Cough and Trouble Breathing
Cardiac: Denies Chest Pain, Diaphoresis, Palpitations or Syncope
Abdomen/GI: Denies Abdominal Pain, Nausea, Vomiting or Diarrhea
: Denies Dysuria, Frequency or Flank Pain
Musculoskeletal: Denies Joint Pain or Edema
Neurological: Denies Dizzy or Headache
Psych: Denies Depression or Anxiety
Physical Exam
Vital Signs
Vital Signs
Temp Pulse Resp BP Pulse Ox
98.1 F 80 21 92/74 94
12/04/24 00:34 12/04/24 04:15 12/04/24 04:15 12/04/24 04:03 12/04/24 04:15
Physical Exam
General: Other (79y M in no acute distress. Tactile fever.)
HEENT: Moist mucous membranes and Other (No JVD or HJR.)
Respiratory: Clear; No Wheezes, Rales or Rhonchi
Cardiac: S1/S2 and Irregular Rhythm; No Murmur
GI: Soft, Non Tender, Non Distended and Normal Bowel Sounds
Musculoskeletal: No Clubbing, No Cyanosis and No Edema
Neuro: AO x 3
Laboratory Results
-
12/03/24 23:23
12/03/24 23:23
Laboratory Results
Total Bilirubin 1.3 mg/dl (0.2-1.3) 12/03/24 23:23
AST 22 U/L (17-59) 12/03/24 23:23
ALT 19 U/L (0-50) 12/03/24 23:23
Alkaline Phosphatase 71 U/L (38-126) 12/03/24 23:23
Troponin I 0.114 ng/ml H* 12/04/24 02:20
Impression/Plan
-
A/P: Patient is an 79y M with PMH significant for CHF, COPD and A-Fib who presents to ED complaining of cough, chills and SOB.
RUL Pneumonia
- Admit for further evaluation and treatment.
- CXR shows RUL opacity (? similar to prior seen on CT).
- Febrile during my exam to 100.5 (after eating ice chips). Mild leukocytosis with L shift.
- IV abx with Zosyn for now.
- Supportive care, nebs, etc.
- Follow for clinical improvement.
Chronic HFrEF
Abnormal Troponin - Unknown Type
- BNP and troponin mildly elevated compared to prior.
- No peripheral edema on exam - though weight per ED scale is reportedly elevated from prior.
- Continue usual GDMT except change Lasix to IV for now.
- Follow I/Os, daily weights, etc.
- Continue to follow troponin to peak. No complaints of chest pain. No acute ischemia on EKG.
- Patient wears LifeVest at home and I am informed that he must be IVU or IMU status here for that reason.
RHINA
- SCr = 1.3 compared to prior baseline value of 0.8.
- ? secondary to CHF / poor cardiac output.
- Follow for changes with diuresis.
- Holding parameters for BP meds to avoid hypotension.
Chronic Atrial Fibrillation
- Continue current medications including Xarelto for stroke risk reduction.
s/p Cornea Transplant
Blindness
- Patient had most recent cornea transplant in October 2024.
- Continue current eye drop regimen (pt brought own drops from home).
COPD without Acute Exacerbation
- No wheezing appreciated on exam.
- Continue own Trelegy. Nebs PRN.
DVT Prophylaxis: On Xarelto
Code Status: Full
[2024-12-04 07:31] LABS: Troponin I 0.097 ng/ml
--- NOTE | 2024-12-04 07:36 | PTCARENOTE ---
Pt admitted from ED at approx 0615 via stretcher, aaox3, able to walk from stretcher to bed with assistx1. Life vest on. Afib on the monitor, HR 70's. O2 at 2L/min, dyspneic on exertion, occ moist MOLD BLOWER cough. Very low vision r/t recent procedure, pt
advised to call for assistance. Oriented to room and surroundings, call light within reach.
[2024-12-04] MEDS: NON-FORMULARY ITEM INH (08:30)
--- NOTE | 2024-12-04 10:15 | CON.PUL ---
Consultation
Consultation Request
Date/Time Consultation Requested: 12/04/2024-10 AM
Date/Time Consultation Performed: 12/04/2024-10:15 AM
Requesting Provider: hospitalist
Performing Provider: Dr. Dennis
Reason for Consultation: Shortness of breath
Medical History
-
Chief Complaint: shortness of breath
History of Present Illness:
79-year-old male with a history of COPD usually taken care of at [facility] who also has CHF, atrial fibrillation presenting with shortness of breath after recently being treated for multifocal pneumonia and now again noted to have
pneumonia-pulmonary was consulted for pneumonia/COPD 12/04/2024.. The patient states that he usually gets taken care of by pulmonary at [facility]. He is maintained on Trelegy and nocturnal supplemental oxygen. He currently denies any chest pain but
has chest congestion, productive cough, and some wheezing. He offers no complaints of hemoptysis, abdominal pain, nausea, focal weakness.
Past Medical History
Past Medical History: None ( COPD on nocturnal oxygen. Atrial fibrillation. Heart failure reduced EF. Hypertension. Blindness. Deafness. Cataract extraction. 7 eye surgeries in the last 3 years. Corneal transplant twice.)
Social History
Tobacco: Former Smoker ([id number] quit over 20-30 years ago)
Alcohol: None
Drug: None
Living: With Family
Occupational Exposures: no known tuberculosis exposure
Environmental Exposures: no known asbestos exposure
Family History
Family History: Reviewed & Not Pertinent
Allergies / Home Medications
Allergies
Allergy/AdvReac Type Severity Reaction Status Date / Time
atorvastatin Allergy Unknown Verified 12/03/24 22:29
clarithromycin [From Biaxin] Allergy Unknown Verified 12/03/24 22:29
pantoprazole Allergy Unknown Verified 12/03/24 22:29
Home Medications
�Medication �Instructions �Recorded �Confirmed �Last Taken �Type
albuterol sulfate 90 mcg/actuation 2 puff inhalation R Q6HPRN PRN sob 11/05/24 12/04/24 12/03/24 History
aerosol inhaler
ascorbic acid (vitamin C) 250 mg 250 mg PO DAILY Supplement 11/05/24 12/04/24 12/03/24 History
tablet (Vitamin C)
brimonidine 0.2 % eye drops 1 drp RIGHT EYE BID Eye Condition 11/05/24 12/04/24 12/03/24 History
cholecalciferol (vitamin D3) 25 25 mcg PO DAILY Supplement 11/05/24 12/04/24 12/03/24 History
mcg (1,000 unit) tablet (Vitamin
D3)
dapagliflozin propanediol 10 mg 10 mg PO DAILY Diabetes 11/05/24 12/04/24 12/03/24 History
tablet (Farxiga)
doxylamine succinate 25 mg tablet 12.5 mg PO HS Sleep 11/05/24 12/04/24 12/03/24 History
evolocumab 140 mg/mL subcutaneous 140 mg SC Q2W High Cholesterol 11/05/24 12/04/24 12/03/24 History
pen injector (Repatha SureClick)
fluticasone fur. 100 mcg-umeclid 1 inh inhalation R DAILY 11/05/24 12/04/24 12/03/24 History
62.5 mcg-vilant 25 mcg Lung/Breathing Issues
inhalat.powder (Trelegy Ellipta)
furosemide 40 mg tablet 40 mg PO DAILY Fluid 11/05/24 12/04/24 12/03/24 History
Retention/Swelling
metoprolol succinate 25 mg 25 mg PO BID Heart 11/05/24 12/04/24 12/03/24 History
tablet,extended release 24 hr Disease/Condition
montelukast 10 mg tablet 10 mg PO DAILY Allergies 11/05/24 12/04/24 12/03/24 History
nitroglycerin 0.4 mg sublingual 0.4 mg sublingual [id number] PRN 11/05/24 12/04/24 Unknown History
tablet chest pain
ofloxacin 0.3 % eye drops 1 drp RIGHT EYE BID Eye Condition 11/05/24 12/04/24 12/03/24 History
prednisolone acetate 1 % eye 1 drp RIGHT EYE BID Eye Condition 11/05/24 12/04/24 12/03/24 History
drops,suspension
rivaroxaban 20 mg tablet (Xarelto) 20 mg PO DAILY Blood Clot 11/05/24 12/04/24 12/03/24 History
Prevention/Tx
sacubitril 24 mg-valsartan 26 mg 1 tab PO BID Heart 11/05/24 12/04/24 12/03/24 History
tablet (Entresto) Disease/Condition
therapeutic multivitamin 1 tab PO DAILY Supplement 11/05/24 12/04/24 12/03/24 History
ipratropium 0.5 mg-albuterol 3 mg 3 ml inhalation R QID PRN 11/08/24 12/04/24 12/03/24 Rx
(2.5 mg base)/3 mL nebulization shortness of breath or wheezing
soln #90 mL
Review of Systems
-
Unable to Obtain full review of systems at this time due to: Other ( Per HPI)
Vitals / Labs / Diagnostic Testing
Vital Signs
Temp Pulse Resp BP Pulse Ox
98 F 66 20 98/59 99
12/04/24 07:15 12/04/24 09:00 12/04/24 07:15 12/04/24 07:17 12/04/24 07:30
Lab Data
12/03/24 23:23
12/03/24 23:23
Diagnostic Testing:
Physical Exam
-
Exam:
well-nourished and well-developed in no apparent distress
HEENT-atraumatic, normocephalic
Neck-supple, no JVD, no bruit
Heart-regular rate and rhythm-no murmurs, rubs or gallops
Chest with some kyphoscoliosis, diminished breath sounds, prolonged expiratory time, expiratory rhonchi, rare crackles and some expiratory wheezing
Back-no tenderness
Abdomen-soft, nontender, nondistended, no hepatosplenomegaly
Extremities-no cyanosis, clubbing, edema and good peripheral pulses
Integument-intact, no rashes, lesions or ecchymosis
Neurology-alert and oriented, nonfocal motor and sensory exam
Assessment
-
79-year-old male with a history of COPD usually taken care of at [facility] who also has CHF, atrial fibrillation presenting with shortness of breath after recently being treated for multifocal pneumonia and now again noted to have
pneumonia-pulmonary was consulted for pneumonia/COPD 12/04/2024
Right upper lobe community-acquired pneumonia-recent multifocal pneumonia
Heart failure with reduced EF
RHINA
COPD with mild acute exacerbation
Elevated troponin
Conditions present prior to admission:
Recent hospitalization 11/05/24 for multifocal pneumonia and chronic systolic heart failure
COPD on nocturnal oxygen-followed by Dr. Suarez-Beka Guo-maintained on Trelegy, nebulizers and albuterol as needed in addition to nocturnal oxygen
Atrial fibrillation.
Heart failure reduced EF.
Hypertension.
Blindness.
Deafness.
Recurrent cataract extraction. 7 eye surgeries in the last 3 years. Corneal transplant twice. Maybe
Plan
Respiratory decompensation likely related to bronchitis/pneumonia and COPD exacerbation in addition to component of heart failure reduced EF
Supplemental oxygen as needed
Assess discharge supplemental oxygen needs at the time of discharge
Nebulizers
Mucolytic's
Singulair continues
Aspiration precautions
Speech therapy evaluation
Mucus clearing devices
Low threshold for steroid initiation if does not improve and wheezing persists
Check cultures
Sputum culture if possible
Empiric antibiotics-Zosyn initiated
Diuresis as tolerated
Trend troponin
Monitor renal function, electrolytes, intake/output, lower extremity edema and weight
Replace electrolytes as needed
DVT prophylaxis-on Xarelto
Nutrition
Early mobilization
Outpatient pulmonary rjuawq-ua-GdDr. Beka Molina would be happy to follow-up locally if he relocates
Diagnostic data:
Chest x-ray bibasilar regions partially obscured
CT chest 11/05/24-no evidence for central pulmonary embolism, 2.2 cm consolidation with air bronchograms right upper lobe as well as 2.4 cm consolidation right middle lobe with air bronchograms likely representing pneumonia, severe apical predominant
emphysematous changes
Data Reviewed
-
EKG: Report reviewed by me
Radiology: Image personally visualized and interpreted and Report reviewed by me
CT Scan: Report reviewed by me
Medical Tests (Nuc Med, Echo etc): Report reviewed by me
Labs: Labs reviewed by me
Old Records: Reviewed
Total Time Spent with Patient (in minutes): 75
--- NOTE | 2024-12-04 11:31 | CM ---
Addendum entered by Jolene Webster RN 12/04/24 11:56:
patient also has supplemental noctural O2
Original Note:
Chart reviewed. Patient is independent of ADLS, staying with his daughter right now in a [address], 2 [address], ambulates with a SPC because he is legally blind. Patient also has a lifevest. Patient does have his own house in a [place] that is [address], [address] through the side and [address] through the front. Patient is current with [facility]. Referral placed to resume services once medically stable for DC. CM to follow
[2024-12-04] MEDS: DUONEB 3 ML INH ×3 (11:44→20:10)
--- NOTE | 2024-12-04 11:55 | PTCARENOTE ---
pt bp 83/44, pt asymptomatic. notified dr. hyman, ordered ivf bolus, hanging per order, see MAR. PT educated on plan of care and pt verbalized understanding. call patel within reach.
[2024-12-04] MEDS: LASIX IV (12:27)
[2024-12-04] MEDS: XARELTO 20 MG PO (12:38)
[2024-12-04] MEDS: NSS 500 IV (12:39)
[2024-12-04] MEDS: SINGULAIR 10 MG PO (12:39)
[2024-12-04] MEDS: VIBRAMYCIN 100 MG PO ×2 (12:39→20:42)
[2024-12-04] MEDS: NON-FORMULARY ITEM 1 DROP RIGHT EYE ×6 (12:40→20:43)
[2024-12-04] MEDS: ROCEPHIN 1000 MG IV (12:41)
[2024-12-04] MEDS: STERILE WATER FOR INJECTION 10 ML IV (12:41)
--- NOTE | 2024-12-04 13:27 | CON.CAR ---
Addendum entered and electronically signed by Franci Kauffman DO 12/05/24 16:45:
I saw and examined the patient.
The Easement Man's note was reviewed and I agree with the note.
Comment: Patient was seen and examined multiple times following notification of consultation on 12/04/2024. This is a late entry. Mr. Vargas is a 79-year-old male with past medical history of Prior [place] status post two-vessel CABG and mitral valve
ring repair 06/26/[address] López at [facility], paroxysmal atrial flutter and atrial fibrillation On Xarelto anticoagulation, Bullous emphysema/ COPD, hypertension, Hyperlipidemia who had been under the care of Dr. Dc Paz at [facility]. 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
Echocardiogram reportedly showed an EF of 20-25%. He was reportedly there for over a week For IV diuresis and records have been requested from our review. In September, he was readmitted to [facility] where he had a cardiac catheterization on
09/28/2024 which reportedly showed patent grafts and an EF of 25-30% and underwent a RATNA on 09/29/2024. Patient states he has remained in atrial fibrillation and no cardioversion was attempted. Subsequently had LifeVest placed by primary wire puller
Dr. Dc Paz at [facility] in [place], [place]; Last seen in October however no change to medical therapy or plan as noted states that patient plans to transfer to [place]. Patient on GDMT with Entresto, Toprol, Farxiga, and on Lasix. He denies
life vest alerts or shock. Mr. Vargas moved into his daughter's house in this area following his hospitalizations.Had admission to 11/05/2024 - 11/08/2024 for pneumonia treated with cefepime and doxycycline. No cardiovascular concerns during that
admission and cardiology not consulted. He reports continued shortness of breath and fatigue and has noted that he has had shakes/tremors for over a month and his symptoms were similar to his prior pneumonia. He denies chest pain or pressure. We
were consulted due to hypotension and concern for shock.
GEN: No acute distress at rest denying dizziness or lightheadedness. AOA x 3 but overall poor insight into his medical history and unable to provide details
HEENT: mmm.
LUNGS: Bronchovesicular breath sounds with coarse rhonchi and fine crackles at the bases.
CV: Irregularly irregular, 2/6 systolic murmur left sternal border
ABD: soft, BS+, NT/ND
EXT: No edema, extremities warm
NEURO: Gross non-focal
Plan:
Medically complex 79-year-old gentleman admitted with shortness of breath and recent hospitalization for multifocal pneumonia and underlying COPD as well as significant cardiac history now with hypotension and concern for shock
-Newer to [facility] with recent cardiac care at [facility] at [facility]; records not available for review and records released sent
-Fortunately despite lower blood pressures he is mentating and relatively asymptomatic. White blood cell count is not elevated, he is afebrile, renal function/LFTs are normal.
-Bedside 2D echocardiogram found small left ventricle with LV ejection fraction reduced, estimated by me around 40% with D-shaped septum consistent with RV pressure/volume overload. RV is significantly dilated with massively dilated right atrium
and severe tricuspid regurgitation. Pulmonary artery systolic pressure estimated 60 to 65 mmHg. He is status post a mitral valve repair with mild to moderate mitral regurgitation. Aortic valve is sclerosis with trace/mild aortic regurgitation.
There is no significant pericardial effusion.
-proBNP 8890 (was 6580 during 11/05/2024 admit to for pneumonia)
-Right and left heart cath 09/28/2024 at [facility] showed patent bypass grafts.RA 16, PA 52/20 with mean of 34, wedge 21, PA sat 51.9. Cardiac output/index 2.5/1.4. PVR 5. SVR 2232.
-RATNA 09/29/2024 at [facility] with EF 25 to 30%, severe RV dilatation and moderate to severe decreased RV systolic function, moderate MR and TR
-No chest pain suggestive of angina
-Will hold oral heart failure regimen at this time including Entresto, Farxiga, and metoprolol.
-Will start dobutamine 2.5 mcg/kg/min and resume gentle diuresis
-Follow blood pressure trends closely
-Consider right heart catheterization early next week after full review of workup and prior discussions at [facility]
Patient remains on antibiotics for suspected pneumonia following recent hospitalization in October with multifocal pneumonia and underlying emphysema/COPD.
-Pulmonary consulted
Atrial fibrillation/atrial flutter, Rates relatively controlled
-Records from previous wire puller indicates history of paroxysmal atrial fibrillation and atrial flutter.
-Continue oral anticoagulation with Xarelto
History of coronary artery disease, elevated troponin
- Status post CABG x 2 and mitral valve annuloplasty ring in 2012
- Left heart cath 09/28/2024 showed widely patent bypass grafts
-Troponin 0.114- and trending down. No chest pain and suspect Nonischemic myocardial injury due to acute illness
-Echo pending today
- LDL 49 10/04/2024; Patient takes Repatha as an outpatient
Will follow with you closely
Original Note:
Consultation
Consultation Request
Date/Time Consultation Requested: 12/04/2024, 1245
Date/Time Consultation Performed: 12/04/2024, 1300
Requesting Provider: Dr Felix
Performing Provider: JARRED Ramon for Dr Kauffman
Reason for Consultation: Heart failure, hypotension
Medical History
-
Chief Complaint: Shortness of breath and fatigue
History of Present Illness:
79-year-old male with past medical history of STEMI, mitral valve repair and CABG x [address] 06/[address]/2013 [address] López at [facility], [place] 2012, paroxysmal atrial flutter and atrial fibrillation, COPD, hypertension, pneumonia and COVID 07/2024, new diagnosis
acute HFrEF 07/2024 and transferred from local hospital ([facility]) to [facility] and diagnosis of acute heart failure and diuresed 10 pounds. Per daughter's report pt was worked up for mitral clip and told not a candidate. May have had
VT during admission. Subsequently had LifeVest placed by primary wire puller Dr. Dc Paz at [facility] in [place], [place]. Patient on GDMT with Entresto, Toprol, Farxiga, and on Lasix. Had admission to 11/05/2024 - 11/08/2024 for
pneumonia treated with cefepime and doxycycline. No cardiovascular concerns during that admission and cardiology not consulted.
In past several days has had recurrent symptoms, similar to prior pneumonia complaining of nonproductive cough, fatigue, dyspnea with minimal exertion, and chills. Weight has been stable at 145 pounds.
Patient has been living in [place] but is currently living with his daughter locally. Daughter Owen Casarez, who I spoke with on the phone and provided above history, is anticipating that patient will be living with her and switching care to
[place] [facility].
ED evaluation:
Chest x-ray: No overt pulmonary vascular congestion, no visualized focal infiltrates bibasilar regions partially obscured.
Troponin 0.114�->0.097
proBNP 8890
BUN/creatinine 38/1.3, NA 133, K4.7, hemoglobin 14.2, WBC 10.0
EKG: Atrial fibrillation, left axis deviation, incomplete right bundle branch block
Patient admitted for treatment of right upper lobe pneumonia, receiving IV antibiotics and oxygen (on 2L NC). Cardiology consulted given history of heart failure reduced EF, current concerns for hypotension.
Past medical history:
STEMI 2012
Mitral valve repair and CABG x2 06/26/2013 at [facility] (CASTRO to LAD, SVG to RCA)
Acute heart failure reduced EF, diagnosed 07/2024, EF 33%. Per previous records baseline EF had been 50 to 60%.
Pneumonia/COVID 07/2024
Paroxysmal atrial fibrillation and atrial flutter, on Xarelto
COPD, on home oxygen
Asbestosis
Stage III chronic kidney disease
Hyperlipidemia
Blindness
Deafness
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
Past Medical History
Past Medical History: Other (As above)
Past Surgical History: Appendectomy, Cardiac (Mitral valve repair and CABG 2012) and Other (Cataracts)
Social History
Tobacco: Former Smoker (80-xsku-sgvl smoker quit at least 20 years ago)
Alcohol: None
Living: With Family (Daughter Owen Casarez)
Family History
Family History: Reviewed & Not Pertinent
Allergies / Home Medications
Allergy/AdvReac Type Severity Reaction Status Date / Time
atorvastatin Allergy Unknown Verified 12/03/24 22:29
clarithromycin [From Biaxin] Allergy Unknown Verified 12/03/24 22:29
pantoprazole Allergy Unknown Verified 12/03/24 22:29
�Medication �Instructions �Recorded �Confirmed �Type
albuterol sulfate 90 mcg/actuation 2 puff inhalation R Q6HPRN PRN sob 11/05/24 12/04/24 History
aerosol inhaler
ascorbic acid (vitamin C) 250 mg 250 mg PO DAILY Supplement 11/05/24 12/04/24 History
tablet (Vitamin C)
brimonidine 0.2 % eye drops 1 drp RIGHT EYE BID Eye Condition 11/05/24 12/04/24 History
cholecalciferol (vitamin D3) 25 25 mcg PO DAILY Supplement 11/05/24 12/04/24 History
mcg (1,000 unit) tablet (Vitamin
D3)
dapagliflozin propanediol 10 mg 10 mg PO DAILY Diabetes 11/05/24 12/04/24 History
tablet (Farxiga)
doxylamine succinate 25 mg tablet 12.5 mg PO HS Sleep 11/05/24 12/04/24 History
evolocumab 140 mg/mL subcutaneous 140 mg SC Q2W High Cholesterol 11/05/24 12/04/24 History
pen injector (Repatha SureClick)
fluticasone fur. 100 mcg-umeclid 1 inh inhalation R DAILY 11/05/24 12/04/24 History
62.5 mcg-vilant 25 mcg Lung/Breathing Issues
inhalat.powder (Trelegy Ellipta)
furosemide 40 mg tablet 40 mg PO DAILY Fluid 11/05/24 12/04/24 History
Retention/Swelling
metoprolol succinate 25 mg 25 mg PO BID Heart 11/05/24 12/04/24 History
tablet,extended release 24 hr Disease/Condition
montelukast 10 mg tablet 10 mg PO DAILY Allergies 11/05/24 12/04/24 History
nitroglycerin 0.4 mg sublingual 0.4 mg sublingual [id number] PRN 11/05/24 12/04/24 History
tablet chest pain
ofloxacin 0.3 % eye drops 1 drp RIGHT EYE BID Eye Condition 11/05/24 12/04/24 History
prednisolone acetate 1 % eye 1 drp RIGHT EYE BID Eye Condition 11/05/24 12/04/24 History
drops,suspension
rivaroxaban 20 mg tablet (Xarelto) 20 mg PO DAILY Blood Clot 11/05/24 12/04/24 History
Prevention/Tx
sacubitril 24 mg-valsartan 26 mg 1 tab PO BID Heart 11/05/24 12/04/24 History
tablet (Entresto) Disease/Condition
therapeutic multivitamin 1 tab PO DAILY Supplement 11/05/24 12/04/24 History
ipratropium 0.5 mg-albuterol 3 mg 3 ml inhalation R QID PRN 11/08/24 12/04/24 Rx
(2.5 mg base)/3 mL nebulization shortness of breath or wheezing
soln #90 mL
Review of Systems
-
History Source: Patient
All other systems: Negative unless noted
Physical Exam
Vital Signs
Temp Pulse Resp BP Pulse Ox
98 F 74 20 65/41 100
12/04/24 11:19 12/04/24 11:49 12/04/24 11:49 12/04/24 11:25 12/04/24 11:49
Lab Results
12/03/24 23:23
12/03/24 23:23
Troponin I 0.097 ng/ml H* 12/04/24 06:43
Epc-N-Bhyetyykyrb Pept 8890 pg/ml 12/04/24 02:20
GEN: No distress, awake, Ox3
HEENT: supple, anicteric, mmm
LUNGS: CTA, no wheezes/rales
CV: Irregularly irregular, 2 out of 6 systolic murmur left sternal border
ABD: soft, BS+, NT/ND
EXT: No edema, extremities warm
NEURO: Gross non-focal
SKIN: No rash
Impression / Plan
-
Primary wire puller: Dc Paz at [facility] ([phone])
PCP: Eric Etienne at [facility]
Impression:
Shortness of breath
Elevated troponin
Heart failure reduced EF
RV dysfunction
Coronary artery disease status post CABG x 2 2012
Mitral valve disease status post mitral valve ring annuloplasty 2012
Atrial fibrillation/atrial flutter
Pneumonia, 07/2024, 10/2024 (admission to )
Previous cardiovascular testing:
Echo 08/21/2024: EF 33% (previously EF 50 to 60%), grade 2 diastolic dysfunction, mild AI, moderate MR, RVSP 52 mmHg
RATNA 09/29/2024 (at [facility]): LVEF 20 to 25%, RV moderately severely dilated, moderate to severe early decreased RV systolic function, biatrial mild dilatation, number 30 mm Jesu�Cody physio mitral valve annuloplasty ring
well-seated, moderate MR, mild AI, moderate TR, aorta 3.7 cm at sinus of Valsalva ascending aorta 3.5 cm, PFO with gjuq-cm-uemxq shunting
Cardiac catheterization 09/28/2024 at [facility]:
RA 16, PA 52/20, PCWP 21, V wave 23, CO/CI 2.58/1.4
CASTRO to distal LAD widely patent, SVG to distal RCA widely patent
[place] coronary arteries: LAD 100% mid vessel occlusion, left circumflex 50 to 60% mid vessel stenosis, RCA 100% proximal occlusion
Outpatient FLP 10/04/2024: LDL 49, HDL 28, TG 60, total cholesterol 91
proBNP 09/29/2024: 8593
proBNP 10/04/2024: 5390
Plan:
79-year-old male presents to with fatigue and shortness of breath with concerns for recurrent pneumonia after being hospitalized at one month ago for pneumonia. Has PMH STEMI, mitral valve repair and CABG x 2 06/26/2013 at [facility], paroxysmal atrial flutter and atrial fibrillation, COPD, hypertension, pneumonia and COVID 07/2024, new diagnosis heart failure reduced EF 07/2024 transferred from local hospital ([facility]) to [facility] and diuresed 10
pounds. Had R/L heart cath showing patent bypass grafts, elevated filling pressures, low CO/CI, see results above. Subsequently had LifeVest placed by primary wire puller Dr. Dc Paz. Patient on GDMT with Lindsay, Juan, Wilbur, and on
Lasix. Had admission to 11/05/2024 - 11/08/2024 for pneumonia treated with cefepime and doxycycline.
In past several days has had recurrent symptoms, similar to prior pneumonia complaining of nonproductive cough, fatigue, dyspnea with minimal exertion, and chills. Home weight has been stable at 145 pounds.
Patient has been living in [place] but is currently living with his daughter locally. Daughter Owen Casarez, who I spoke with on the phone and assisted with above history, is anticipating that patient will be living with her and switching care to
[place] [facility].
ER evaluation: proBNP 8890, troponin mildly elevated, chest x-ray no overt pulmonary vascular congestion, no convincing visualized focal infiltrates but bibasilar regions are partially obscured
Heart failure reduced EF
-New diagnosis as of July 2024 in setting of hospitalization for pneumonia and COVID
-proBNP 8890 (was 6580 during 11/05/2024 admit to for pneumonia)
-Subsequent right and left heart cath 09/28/2024 at [facility] showed patent bypass grafts and elevated right and left heart filling pressures
-RATNA 09/29/2024 at [facility] with EF 25 to 30%, severe RV dilatation and moderate to severe decreased RV systolic function, moderate MR and TR
-Patient on Entresto, Toprol, Farxiga, and Lasix in outpt setting- all held today 12/04/2024 due to hypotension
-Lifevest placed in 09/2024 by outpt wire puller and remains in placed (removed now in hospital)
-does not appear grossly volume overloaded on exam
-continue Lasix with gentle diuresis
-hypotensive with BP to 60s/ earlier, improved with 250cc NSS. Did not need to start inotrope
-will start Midodrine 5 mg TID to start now- I ordered
-stat echo
-t/c adding spironolactone if no contraindication found on records from OSH and BP remains stable
Atrial fibrillation/atrial flutter
-Records from previous wire puller indicates history of paroxysmal atrial fibrillation and atrial flutter.
- Patient currently in atrial fibrillation with controlled ventricular response, heart rate 74 bpm. In reviewing past records, patient was in A-fib during previous admission to 11/05/2024 - 11/08/2024 and on EKG from outpatient wire puller from
10/21/2024
- Continue oral anticoagulation with Xarelto and metoprolol for rate control
History of coronary artery disease, elevated troponin
- Status post CABG x 2 and mitral valve annuloplasty ring in 2013
- Left heart cath 09/28/2024 showed widely patent bypass grafts
-Troponin 0.114- and trending down
- Patient denies anginal symptoms
-Suspect acute nonischemic myocardial injury due to acute illness
-Echo pending today
-past records indicate allergy to atorvastatin with leg pain and restless legs and it does not look like patient is on other statin.
- LDL 49 10/04/2024
Discussed with daughter Owen,hospitalist, nursing
Data Reviewed
-
EKG: Tracing Personally Visualized and interpreted
Medical Tests (Nuc Med, Echo etc): Image Personally Visualized and interpreted
Labs: Labs Reviewed by me
Old Records: Requested and Reviewed
--- NOTE | 2024-12-04 13:44 | W.PN.HOSP.TC ---
Today's Communication/Plan
-
IV fluid bolus
Echocardiogram
Cardiology consult
Continue antibiotics
Assessment / Plan
Assessment / Plan
Gen-AAOx3, NAD
HEENT-NC, AT, anicteric, clear oral mm
Neck-supple
CV-reg, no M, +S1/S2
Lungs-decreased breath sounds bilaterally
Abd-soft, NT, ND
Ext-no edema
Musculoskeletal-no cyanosis, clubbing
Skin-warm and dry
Neuro-grossly non-focal
Psych-calm, cooperative
Shock -unclear etiology. Does not have classic features of septic shock. Differential diagnosis includes cardiogenic versus septic versus hypovolemic versus other etiology. Initiate Levophed for goal MAP greater than 65. Transfer to IMU. IV
fluid bolus. Discussed with nursing.
Very difficult to assess true volume status. BNP 8890 but does not look grossly volume overloaded. Check urgent echocardiogram, consult cardiology.
Blood pressure improved with 250 cc saline bolus.
Possible community-acquired pneumonia -not a convincing picture however. Does not look toxic or septic. Has a dry cough. He had similar infiltrates on CT chest from last month. It would be quite strange to have community-acquired pneumonia 2
months in a row. Currently on empiric antibiotics. Pulmonary consulted.
Check urinary antigens.
Hyponatremia -monitor for now.
Troponin elevation -no chest pain. Suspect acute nonischemic myocardial injury due to acute illness. Troponin trending down. Cardiology consulted. Echocardiogram pending.
Prerenal azotemia/RHINA -BUN 38, creatinine 1.3. Previous creatinine 0.8. Differential diagnosis of volume depletion versus cardiorenal syndrome versus other. Recheck labs.
Chronic heart failure reduced EF -as above, difficult to assess true volume status. Medications currently on hold for hypotension. Echocardiogram to be done today, cardiology consulted.
Chronic atrial fibrillation -on Xarelto.
COPD without exacerbation
Blindness -with recent corneal transplant.
Full code
Anticipated Discharge: > 48 hours
Subjective/Interval History
-
Date of Service: December 04, 2024
Patient seen and examined. Complaining of mild nonproductive cough. Denies shortness of breath.
Objective Data
-
Vital Signs:
Vital Signs
Temp Pulse Resp BP Pulse Ox
98 F 74 20 65/41 100
12/04/24 11:19 12/04/24 11:49 12/04/24 11:49 12/04/24 11:25 12/04/24 11:49
I&O
12/03/24 12/04/24 12/05/24
06:59 06:59 06:59
Output Total 300 / 300
Balance -300 / -300
Review of Systems
-
History Source: Patient
All other systems: Reviewed and negative
[2024-12-04 13:48] LABS: Troponin I 0.075 ng/ml
--- NOTE | 2024-12-04 14:23 | CARDSERVLU ---
Echocardiogram with Lumason completed after protocol screening completed. Allergies verified.
Patent IV site: _Right forearm site clear____
IV site flushed with 0.9% NaCl pre and post administration.
Diluted bolus method utilized to enhance visualization of ventricular estrada.
Total volume given: ___3_ mL
Patient tolerated all procedures well without complications.
[2024-12-04] MEDS: ProAmatine 5 MG PO (14:26)
--- NOTE | 2024-12-04 15:59 | PTOTSP ---
Speech Language Pathology
Pt seen for clinical bedside swallow evaluation. Pt denied any difficulty swallowing currently or at baseline. Did report significant PNA hx. Was recently admitted at with PNA, but CT chest showed this in RUL and RML. WBC currently WNL. Seen
with lunch tray of salad and thin liquids. Adequate mastication, bolus formation, and A-P transit with no oral residue. No overt signs of aspiration.
Recommend:
(1) Regular solids/thin liquids
(2) General aspiration precautions
(3) Meds as tolerated
(4) If high suspicion for silent aspiration, can order VSE, but I have low suspicion for this
(5) DOCUMENT MANAGEMENT TECHNICIAN to sign off. Please reconsult as indicated
[2024-12-04 18:04] LABS: Troponin I 0.062 ng/ml
[2024-12-04] MEDS: DOBUTREX 500 MG 250 IV (18:09)
--- NOTE | 2024-12-04 18:14 | PTCARENOTE ---
pt bp is 80/48. hr in the 60s-70s. pt c/o of being 'dizzy and not feeling right.'notified dr. William and dr. hyman. started a dobutamine gtt per order see SEP. Pt will be transferred to IMU per orders. pt resting in bed. pt educated on plan of
care and pt verbalized understanding. call patel within reach.
[2024-12-04] MEDS: MUCINEX 1200 MG PO (20:42)
[2024-12-04] MEDS: NON-FORMULARY ITEM 12.5 MG PO (21:56)
[2024-12-05] VITALS (20 sets, daily range): BP systolic 60–114; BP diastolic 30–79; BMI 20.9
[2024-12-05] MEDS: TYLENOL 650 MG PO ×4 (03:55→18:10)
[2024-12-05 04:04] LABS: Hemoglobin 13.5 g/dL (13.0-18.0); Mean Corp Hgb Conc. 35.5 g/dL (33.0-37.0); Mean Corpuscular Volume 92.9 fL (80.0-94.0); Mean Platelet Volume 10.5 fL (7.4-10.4); Platelet Count 131 10^3/uL (130-400); Red Blood Cell Count 4.09 10^6/uL (4.70-6.10); Red Cell Dist. Width 15.3 % (11.5-14.5); White Blood Cell Count 8.8 10^3/uL (4.8-10.8)
[2024-12-05 04:25] LABS: Blood Urea Nitrogen 35 mg/dl (9-20); Calcium 8.3 mg/dl (8.4-10.2); Carbon Dioxide 18 mmol/L (22-30); Chloride 108 mmol/L (98-107); Estimated Creatinine Clearance 49 ml/min; Glucose 111 mg/dl (70-99); Potassium 4.5 mmol/L (3.5-5.1); Sodium 133 mmol/L (135-145); eGFR > 60.00
--- NOTE | 2024-12-05 04:33 | PTCARENOTE ---
Addendum entered by Madeline Woo RN 12/05/24 04:34:
tmax 100.4. PRN tylenol administered.
Original Note:
No acute events overnight. Remains on continuous dobutamine gtt.[address].
[2024-12-05] MEDS: DUONEB 3 ML INH ×3 (07:49→19:49)
[2024-12-05] MEDS: NON-FORMULARY ITEM 1 INH INH (07:51)
[2024-12-05] MEDS: LASIX 40 MG IV (08:26)
[2024-12-05] MEDS: MUCINEX 1200 MG PO ×2 (08:26→20:29)
[2024-12-05] MEDS: XARELTO 20 MG PO (08:26)
[2024-12-05] MEDS: VIBRAMYCIN 100 MG PO ×2 (08:26→20:29)
[2024-12-05] MEDS: SINGULAIR 10 MG PO (08:26)
[2024-12-05] MEDS: NON-FORMULARY ITEM 1 DROP RIGHT EYE ×6 (08:27→20:30)
--- NOTE | 2024-12-05 08:50 | W.PN.HOSP.TC ---
Today's Communication/Plan
-
CT chest
Continue diuretics
TSH, cortisol
PT consult
Assessment / Plan
Assessment / Plan
Gen-AAOx3, NAD
HEENT-NC, AT, anicteric, clear oral mm
Neck-supple
CV-reg, no M, +S1/S2
Lungs-decreased breath sounds bilaterally, no rales or wheezing
Abd-soft, NT, ND
Ext-no edema
Musculoskeletal-no cyanosis, clubbing
Skin-warm and dry
Neuro-grossly non-focal
Psych-calm, cooperative
Shock -unclear etiology. Does not have classic features of septic shock. Differential diagnosis includes cardiogenic versus septic versus hypovolemic versus other etiology. Started on dobutamine IV yesterday. Also started on midodrine but
discontinued by cardiology. Still relatively hypotensive this morning. Mean arterial pressure 68.
Very difficult to assess true volume status. BNP 8890 but does not look grossly volume overloaded.
Acute on chronic heart failure reduced EF -echocardiogram done December 04 shows LVEF 40 to 45%, hypokinesis most notable in the apical and septal segments, mitral valve repair with anoplasty ring, mild to moderate MR. Mild AR. Dilated and hypokinetic
RV, markedly dilated RA, severe TR. Pulmonary hypertension with PA systolic pressure 60 to 65 mmHg.
Continue IV Lasix. Discussed with cardiology.
Possible community-acquired pneumonia -not a convincing picture however. Does not look toxic or septic. Afebrile. WBC count normal. Has a dry cough. He had similar infiltrates on CT chest from last month. It would be quite strange to have
community-acquired pneumonia 2 months in a row. Currently on empiric antibiotics. Chest x-ray as read as no obvious infiltrate. Will check CT scan to help decide if we are dealing with pneumonia. If no infiltrates on CT will discontinue
antibiotics. Discussed with patient.
Given ongoing shivering will check TSH, cortisol.
Hyponatremia -monitor for now.
Troponin elevation -no chest pain. Suspect acute nonischemic myocardial injury due to acute illness. Troponin trending down. Cardiology consulted. Echocardiogram pending.
Prerenal azotemia/RHINA -BUN 38, creatinine 1.3. Previous creatinine 0.8. Differential diagnosis of volume depletion versus cardiorenal syndrome versus other. BUN and creatinine improving.
Chronic atrial fibrillation -on Xarelto.
COPD without exacerbation
Blindness -with recent corneal transplant.
Full code -confirmed with patient.
PT consult
Anticipated Discharge: > 48 hours
Subjective/Interval History
-
Date of Service: December 05, 2024
Patient seen and examined. Complaining of feeling cold, shivering.
Objective Data
-
Labs:
Laboratory Results
12/05/24
03:51
WBC 8.8
Hgb 13.5
Hct 38.0 L
Plt Count 131
Sodium 133 L
Potassium 4.5
Chloride 108 H
Carbon Dioxide 18 L
BUN 35 H
Creatinine 1.1
Glucose 111 H
Calcium 8.3 L
Vital Signs:
Vital Signs
Temp Pulse Resp BP Pulse Ox
98.1 F 102 16 94/55 99
12/05/24 06:26 12/05/24 08:26 12/05/24 07:53 12/05/24 08:26 12/05/24 07:53
I&O
12/04/24 12/05/24 12/06/24
06:59 06:59 06:59
Intake Total 418.8 / 418.8
Output Total 300 / 300 1200 / 1200
Balance -300 / -300 -781.2 / -781.2
Review of Systems
-
History Source: Patient
All other systems: Reviewed and negative
[2024-12-05] MEDS: DUONEB INH (11:07)
--- NOTE | 2024-12-05 11:27 | PTCARENOTE ---
PT to and from CT scan with nurse without incident
[2024-12-05] MEDS: STERILE WATER FOR INJECTION 10 ML IV (11:38)
[2024-12-05] MEDS: ROCEPHIN 1000 MG IV (11:38)
[2024-12-05 11:56] LABS: Cortisol, Random 18.5 ug/dl; TSH 0.93 uIU/ml (0.47-4.68)
[2024-12-05 15:13] LABS: Lactic Acid 1.5 mmol/L (0.7-2.0)
[2024-12-05 15:27] LABS: Procalcitonin 0.69 ng/ml (0.0-0.25)
[2024-12-05 16:06] LABS: Urine Albumin 1+ (Neg - Trace); Urine Bilirubin Negative (Negative); Urine Color Yellow; Urine Glucose 2+ (Negative); Urine Ketone Negative (Negative); Urine Leukocyte Negative (Negative); Urine Nitrite Negative (Negative); Urine Occult Blood Negative (Negative); Urine Urobilinogen Negative (Neg - 1+)
[2024-12-05 16:28] LABS: Urine Character Clear (Clear)
[2024-12-05 16:31] LABS: Urine Bacteria Few (Negative); Urine Red Blood Cell 0-2 /HPF (0-2); Urine White Cell 0-2 /HPF (0-5)
--- NOTE | 2024-12-05 16:40 | W.PN.PUL3 ---
Today's Communication / Plan
-
Empirically continue antibiotics
Continue dobutamine as per cardiology given hypotension with biventricular dysfunction
He does have significantly elevated PA pressures although this is stable/chronic
IV diuresis, trending UOP + strict I/O
Check UA
Continue Trelegy and change DuoNebs to albuterol
Pulmonary service will continue to follow along
Assessment
-
79-year-old male with a history of COPD usually taken care of at [facility] who also has CHF, atrial fibrillation presenting with shortness of breath after recently being treated for multifocal pneumonia and now again noted to have
pneumonia-pulmonary was consulted for pneumonia/COPD 12/04/2024
Right upper lobe community-acquired pneumonia-recent multifocal pneumonia
Heart failure with reduced EF
RHINA - improved
COPD with mild acute exacerbation
Elevated troponin
Conditions present prior to admission:
Recent hospitalization 11/05/24 for multifocal pneumonia and chronic systolic heart failure
COPD on nocturnal oxygen-followed by Dr. Suarez-Exeter-maintained on Trelegy, nebulizers and albuterol as needed in addition to nocturnal oxygen
Atrial fibrillation.
Heart failure reduced EF.
Hypertension.
Blindness.
Deafness.
Recurrent cataract extraction. 7 eye surgeries in the last 3 years. Corneal transplant twice. Maybe
Plan
Respiratory decompensation likely related to bronchitis/pneumonia and COPD exacerbation in addition to component of heart failure reduced EF
Supplemental oxygen as needed - currently on room air breathing comfortably
Assess discharge supplemental oxygen needs at the time of discharge
Continue Trelegy 100 mcg --> change DuoNebs to nebulized albuterol
Mucolytics with Mucinex
Singulair continues
Aspiration precautions
Diet as per CRM BUSINESS ANALYST (cleared for regular solids with thin liquids)
Mucus clearing devices
Low threshold for steroid initiation if does not improve and wheezing persists
Check sputum culture if he can produce a decent sample
Follow-up urine antigens for Legionella + strep pneumo
Empiric antibiotics-currently on ceftriaxone + doxycycline
Check UA
Procalcitonin checked and is 0.69 - continue empiric antibiotics for now although there is no current evidence of a new pneumonia as the consolidation in his lateral RML is improving and was seen previously on CTA chest from 11/05/2024
Diuresis as tolerated � currently on IV Lasix 40 mg once daily
Troponin peaked at 0.114 � no longer need to continue trending at this time
Monitor renal function, electrolytes, intake/output, lower extremity edema and weight
Replace electrolytes as needed
DVT prophylaxis-on Xarelto
Nutrition
Early mobilization
Outpatient pulmonary mprzuy-bp-QfDr. Beka Molina would be happy to follow-up locally if he relocates
Pulmonary service will continue to follow him
Diagnostic data:
Chest x-ray bibasilar regions partially obscured
CT chest 11/05/24-no evidence for central pulmonary embolism, 2.2 cm consolidation with air bronchograms right upper lobe as well as 2.4 cm consolidation right middle lobe with air bronchograms likely representing pneumonia, severe apical predominant
emphysematous changes
Total time spent today was 38 minutes for this encounter. Time includes reviewing laboratory test/imaging results, reviewing pertinent medical records, obtaining and reviewing medical history, performing an appropriate exam, ordering medications,
tests and procedures. Time also includes documentation of this encounter, coordinating patient care and communicating with other healthcare professionals. Total time does not include separately billed tests performed on this date of service.
Subjective Data
-
Date of Service:
Date of Service: December 05, 2024
Chief Complaint: Pulmonary Follow Up
Subjective:
Patient seen and evaluated earlier today (late note entry). Currently resting in bed, in no acute distress. Heart rate 102, BP 91/52 on dobutamine at 2 mcg/kg/min, and saturating 97% on room air. He currently denies chest pain, nausea, fevers
although he does endorse chills, as well as shortness of breath with exertion.
Review of Systems
General: Other (Negative unless mentioned above)
Objective Data
Data Reviewed
Vital Signs / I&O / Oxygen:
Vital Signs
Temp Pulse Resp BP Pulse Ox
98.1 F 102 16 94/55 99
12/05/24 06:26 12/05/24 08:26 12/05/24 07:53 12/05/24 08:26 12/05/24 07:53
Intake and Output
12/04/24 12/05/24 12/06/24
06:59 06:59 06:59
Intake Total 418.8 / 418.8
Output Total 300 / 300 1200 / 1200
Balance -300 / -300 -781.2 / -781.2
SaO2 99
Nasal Cannula flow liters per 1
minute
Physical Exam
General: Respiratory Distress (negative), Comfortable, Chills (negative) and Sweats (negative)
HEENT: Normocephalic and Anicteric
Cardiovascular: S1-S2 and Peripheral Edema (negative)
Respiratory: Wheeze (negative), Crackles (Rare crackle), Rhonchi (Upon expiration) and Non-Labored Respirations
GI: Soft, Non Distended, Non Tender and Normal Bowel Sounds
Neurology: AO x 3 and Tremors (negative)
Skin: Warm, Dry, Cyanosis (negative) and Jaundice (negative)
Labs/Micro/Reports
Lab Data
12/05/24 03:51
12/05/24 03:51
--- NOTE | 2024-12-05 17:06 | W.PN.CARDCBS ---
Today's Communication / Plan
-
Multidisciplinary discussion regarding care
Gentle diuresis
Continue dobutamine
Continue empiric antibiotics and evaluate for concomitant infection
Impression / Plan
-
Primary weights and measures inspector: Dc Paz at [facility] ([phone])
PCP: Eric Etienne at [facility]
Impression:
Shortness of breath
Elevated troponin
Heart failure reduced EF
RV dysfunction
Coronary artery disease status post CABG x 2 2012
Mitral valve disease status post mitral valve ring annuloplasty 2012
Atrial fibrillation/atrial flutter
Pneumonia, 07/2024, 10/2024 (admission to )
Previous cardiovascular testing:
Echo 08/21/2024: EF 33% (previously EF 50 to 60%), grade 2 diastolic dysfunction, mild AI, moderate MR, RVSP 52 mmHg
RATNA 09/29/2024 (at [facility]): LVEF 20 to 25%, RV moderately severely dilated, moderate to severe early decreased RV systolic function, biatrial mild dilatation, number 30 mm Jesu�Cody physio mitral valve annuloplasty ring
well-seated, moderate MR, mild AI, moderate TR, aorta 3.7 cm at sinus of Valsalva ascending aorta 3.5 cm, PFO with [id number] shunting
Cardiac catheterization 09/28/2024 at [facility]:
RA 16, PA 52/20, PCWP 21, V wave 23, CO/CI 2.58/1.4
CASTRO to distal LAD widely patent, SVG to distal RCA widely patent
[place] coronary arteries: LAD 100% mid vessel occlusion, left circumflex 50 to 60% mid vessel stenosis, RCA 100% proximal occlusion
Outpatient FLP 10/04/2024: LDL 49, HDL 28, TG 60, total cholesterol 91
proBNP 09/29/2024: 8593
proBNP 10/04/2024: 4290
Plan:
Medically complex 79-year-old gentleman admitted with shortness of breath and recent hospitalization for multifocal pneumonia and underlying COPD as well as significant cardiac history now with hypotension and concern for shock
Rigors/chills
-Cardiogenic shock with concern for concomitant infection. Lactic acid and procalcitonin added.
-Recent multifocal pneumonia In October;CT done today showed some improvement with no evidence of new pneumonia.
-Continue empiric antibiotic continue empiric antibiotics
-TSH within normal limits, cortisol acceptable.
-Appreciate leather goods assembler input, panculture
-If further decompensation would consider addition of Levophed
-He also reports that he has had full body tremors for over a month which started and are similar to symptoms he had at the time of his pneumonia diagnosis in October.
Biventricular failure with severe right sided chamber dilatation and reduced RV systolic function with severe tricuspid regurgitation and pulmonary hypertension
-proBNP 8890 (was 6580 during 11/05/2024 admit to for pneumonia)
-Echocardiogram yesterday with ejection fraction improved when compared to studies done at [facility]. LV ejection fraction estimated approximately 40%
-Right and left heart cath 09/28/2024 at [facility] showed patent bypass grafts.RA 16, PA 52/20 with mean of 34, wedge 21, PA sat 51.9. Cardiac output/index 2.5/1.4. PVR 5. SVR 2232.
-RATNA 09/29/2024 at [facility] with EF 25 to 30%, severe RV dilatation and moderate to severe decreased RV systolic function, moderate MR and TR
-No chest pain suggestive of angina
-Continue IV dobutamine gtt [Although unlikely, rare side effect of dobutamine is tremors/shaking so we will reduce dose to 2 to see if symptoms improve]
-Continue gentle diuresis
-Will hold oral heart failure regimen at this time including Entresto, Farxiga, and metoprolol
-Extensive at [facility] In September; Reviewed available records however still waiting for hospital consultation and notes from cardiology.
-Consider right heart catheterization next week
Atrial fibrillation/atrial flutter, Rates relatively controlled
-Records from previous weights and measures inspector indicates history of paroxysmal atrial fibrillation and atrial flutter.
-Continue oral anticoagulation with Xarelto -Will hold Xarelto on Saturday for possible procedure Saturday
History of coronary artery disease, elevated troponin
- Status post CABG x 2 and mitral valve annuloplasty ring in 2012
- Left heart cath 09/28/2024 showed widely patent bypass grafts
- Troponin 0.114- and trending down. No chest pain and suspect Nonischemic myocardial injury due to acute illness
- LDL 49 10/04/2024; Patient takes Repatha as an outpatient
Will follow with you closely
Progress Note - Beekeeper Farmer
Subjective
Date of Service: December 05, 2024
Patient complaining of chills requesting heated blankets and having rigors. Denies shortness of breath or dizziness. No chest pain.
Objective
Labs:
12/05/24 03:51
12/05/24 03:51
Labs
Hgb 13.5 g/dL (13.0-18.0) 12/05/24 03:51
Hct 38.0 % (39.0-52.0) L 12/05/24 03:51
Plt Count 131 10^3/uL (130-400) 12/05/24 03:51
Sodium 133 mmol/L (135-145) L 12/05/24 03:51
Potassium 4.5 mmol/L (3.5-5.1) 12/05/24 03:51
BUN 35 mg/dl (9-20) H 12/05/24 03:51
Creatinine 1.1 mg/dL (0.7-1.3) 12/05/24 03:51
Glucose 111 mg/dl (70-99) H 12/05/24 03:51
Troponins
12/04/24 12/04/24 12/04/24
02:20 06:43 13:13
Troponin I 0.114 H* 0.097 H* 0.075 H*
12/04/24
17:25
Troponin I 0.062 H*
Vital Signs and I&O:
Vital Signs
Temp Pulse Resp BP Pulse Ox
97.9 F 83 20 114/51 96
12/05/24 15:05 12/05/24 16:00 12/05/24 16:00 12/05/24 16:00 12/05/24 16:00
Vital Signs
Temp Pulse Resp BP Pulse Ox
97.9 F 83 20 114/51 96
12/05/24 15:05 12/05/24 16:00 12/05/24 16:00 12/05/24 16:00 12/05/24 16:00
Intake & Output
12/03/24 12/04/24 12/05/24 12/06/24
06:59 06:59 06:59 06:59
Intake Total 418.8 / 418.8
Output Total 300 / 300 1200 / 1200 650 / 650
Balance -300 / -300 -781.2 / -781.2 -650 / -650
Physical Exam
Physical Exam
GEN: No acute distress at rest denying dizziness or lightheadedness. AOA x 3 but overall poor insight into his medical history and unable to provide details
HEENT: mmm.
LUNGS: Bronchovesicular breath sounds with coarse rhonchi and fine crackles at the bases.
CV: Irregularly irregular, 2/6 systolic murmur left sternal border
ABD: soft, BS+, NT/ND
EXT: No edema, extremities warm
NEURO: Gross non-focal
[2024-12-05] MEDS: NON-FORMULARY ITEM 1 MG PO (20:31)
--- NOTE | 2024-12-05 22:04 | PTCARENOTE ---
Patient ambulatory in room with assist x1 r/to wires and vision. Gait stable. Patient ambulated to bathroom, had medium soft brown bowel movement and brushed teeth independently, standby assist x1 for safety. Patient is aaox3, remains in afib. Lungs
cta throughout, 94-96% on room air. Patient remains on Dobutamine gtt at 2mcg/kg/min to right wrist site. Patient able to make needs known, call patel within reach. Will continue to monitor.
[2024-12-06] VITALS (15 sets, daily range): BP systolic 80–140; BP diastolic 51–108; PULSE 98; O2SAT 95; BMI 21.2
[2024-12-06] MEDS: TYLENOL 650 MG PO (03:35)
[2024-12-06 05:08] LABS: Blood Urea Nitrogen 27 mg/dl (9-20); Calcium 8.6 mg/dl (8.4-10.2); Carbon Dioxide 17 mmol/L (22-30); Chloride 108 mmol/L (98-107); Estimated Creatinine Clearance 55 ml/min; Glucose 90 mg/dl (70-99); Potassium 4.5 mmol/L (3.5-5.1); Sodium 131 mmol/L (135-145); eGFR > 60.00
--- NOTE | 2024-12-06 06:21 | PTCARENOTE ---
Patient with temp of 102.7 oral, around 3 am. PRN tylenol administered. Temp at this time 98.0. Will continue to monitor.
--- NOTE | 2024-12-06 07:24 | W.PN.HOSP.TC ---
Today's Communication/Plan
-
Blood cultures
ID consult
Assessment / Plan
Assessment / Plan
Gen-AAOx3, NAD
HEENT-NC, AT, anicteric, clear oral mm
Neck-supple
CV-reg, no M, +S1/S2
Lungs-decreased breath sounds bilaterally, no rales or wheezing
Abd-soft, NT, ND
Ext-no edema
Musculoskeletal-no cyanosis, clubbing
Skin-warm and dry
Neuro-grossly non-focal
Psych-calm, cooperative
Shock -unclear etiology. Does not have classic features of septic shock. Differential diagnosis includes cardiogenic versus septic versus hypovolemic versus other etiology. Started on dobutamine IV yesterday. Also started on midodrine by
cardiology but discontinued by cardiology. Blood pressure improved.
Very difficult to assess true volume status. BNP 8890 but does not look grossly volume overloaded.
Acute on chronic heart failure reduced EF -echocardiogram done December 04 shows LVEF 40 to 45%, hypokinesis most notable in the apical and septal segments, mitral valve repair with anoplasty ring, mild to moderate MR. Mild AR. Dilated and hypokinetic
RV, markedly dilated RA, severe TR. Pulmonary hypertension with PA systolic pressure 60 to 65 mmHg.
Continue IV Lasix. Discussed with cardiology.
Possible community-acquired pneumonia -first fever was 3:00 this morning, will order blood cultures now. Unfortunately blood cultures were not drawn on admission prior to initiation of antibiotics. Consult infectious disease. Continue
antibiotics. Patient states he has had chills on and off for the past [address] chest performed yesterday showed severe apical predominant emphysematous changes similar to prior. Decreased size of opacities within the lateral right upper lobe and right middle lobe. Decreased size of right hilar lymph node which is
likely reactive. COVID antigen sent. Check urinary antigens. MRSA swab.
Hyponatremia -monitor for now.
Troponin elevation -no chest pain. Suspect acute nonischemic myocardial injury due to acute illness. Troponin trending down. Cardiology consulted. Echocardiogram pending.
Prerenal azotemia/RHINA -BUN 38, creatinine 1.3. Previous creatinine 0.8. Differential diagnosis of volume depletion versus cardiorenal syndrome versus other. BUN and creatinine improving.
Chronic atrial fibrillation -on Xarelto.
COPD without exacerbation
Blindness -with recent corneal transplant.
Full code -confirmed with patient.
PT consult
Anticipated Discharge: > 48 hours
Subjective/Interval History
-
Date of Service: December 06, 2024
Patient seen and examined. No new complaints. Denies shortness of breath. Minimal productive cough.
Objective Data
-
Labs:
Laboratory Results
12/06/24
03:52
Sodium 131 L
Potassium 4.5
Chloride 108 H
Carbon Dioxide 17 L
BUN 27 H
Creatinine 1.0
Glucose 90
Calcium 8.6
Vital Signs:
Vital Signs
Temp Pulse Resp BP Pulse Ox
98.0 F 91 27 126/70 96
12/06/24 06:20 12/06/24 04:00 12/06/24 04:00 12/06/24 04:00 12/06/24 04:00
I&O
12/05/24 12/06/24 12/07/24
06:59 06:59 06:59
Intake Total 418.8 / 418.8 528 / 528
Output Total 1200 / 1200 1300 / 1300
Balance -781.2 / -781.2 -772 / -772
Review of Systems
-
History Source: Patient
All other systems: Reviewed and negative
[2024-12-06] MEDS: VENTOLIN NEBULES 1.25 MG INH ×4 (07:42→20:18)
[2024-12-06] MEDS: NON-FORMULARY ITEM 1 INH INH (07:43)
[2024-12-06] MEDS: MUCINEX 1200 MG PO ×2 (09:19→19:45)
[2024-12-06] MEDS: VIBRAMYCIN 100 MG PO ×2 (09:21→19:46)
[2024-12-06] MEDS: SINGULAIR 10 MG PO (09:22)
[2024-12-06] MEDS: MIRALAX 17 GRAMS PO (09:23)
[2024-12-06] MEDS: LASIX 40 MG IV (09:23)
[2024-12-06] MEDS: COLACE 100 MG PO ×2 (09:23→19:45)
[2024-12-06] MEDS: NON-FORMULARY ITEM 1 DROP RIGHT EYE ×6 (09:27→20:39)
[2024-12-06] MEDS: FLUSH (NSS) 1 FLUSH IV ×2 (09:30→17:40)
--- NOTE | 2024-12-06 11:40 | W.PN.CARDCBS ---
Today's Communication / Plan
-
Infection workup ongoing
Will continue dobutamine with plan for eventual right heart catheterization to reassess hemodynamics next week
Impression / Plan
-
Primary bedspring assembler: Dc Paz at [facility] ([phone])
PCP: Eric Etienne at [facility]
Impression:
Shortness of breath
Elevated troponin
Heart failure reduced EF
RV dysfunction
Coronary artery disease status post CABG x 2 2012
Mitral valve disease status post mitral valve ring annuloplasty 2012
Atrial fibrillation/atrial flutter
Pneumonia, 07/2024, 10/2024 (admission to )
Previous cardiovascular testing:
Echo 08/21/2024: EF 33% (previously EF 50 to 60%), grade 2 diastolic dysfunction, mild AI, moderate MR, RVSP 52 mmHg
RATNA 09/29/2024 (at [facility]): LVEF 20 to 25%, RV moderately severely dilated, moderate to severe early decreased RV systolic function, biatrial mild dilatation, number 30 mm Jesu�Cody physio mitral valve annuloplasty ring
well-seated, moderate MR, mild AI, moderate TR, aorta 3.7 cm at sinus of Valsalva ascending aorta 3.5 cm, PFO with [id number] shunting
Cardiac catheterization 09/28/2024 at [facility]:
RA 16, PA 52/20, PCWP 21, V wave 23, CO/CI 2.58/1.4
CASTRO to distal LAD widely patent, SVG to distal RCA widely patent
[place] coronary arteries: LAD 100% mid vessel occlusion, left circumflex 50 to 60% mid vessel stenosis, RCA 100% proximal occlusion
Outpatient FLP 10/04/2024: LDL 49, HDL 28, TG 60, total cholesterol 91
proBNP 09/29/2024: 9993
proBNP 10/04/2024: 5790
Plan:
Medically complex 79-year-old gentleman admitted with shortness of breath and recent hospitalization for multifocal pneumonia and underlying COPD as well as significant cardiac history now with hypotension and concern for shock
Rigors/chills with first fever this morning, likely infectious
-Unclear etiology that has been going on for about a month
-Recent multifocal pneumonia In October;CT done today showed some improvement with no evidence of new pneumonia.
-Continue empiric antibiotic
-Cultures ordered by primary
-If patient becomes more hypotensive would start Levophed
-TSH within normal limits, cortisol acceptable.
-Appreciate sole molder input
-ID consult
Biventricular failure with severe right sided chamber dilatation and reduced RV systolic function with severe tricuspid regurgitation and pulmonary hypertension
-proBNP 8890 (was 6580 during 11/05/2024 admit to for pneumonia)
-Echocardiogram yesterday with ejection fraction improved when compared to studies done at [facility]. LV ejection fraction estimated approximately 40%
-Right and left heart cath 09/28/2024 at [facility] showed patent bypass grafts.RA 16, PA 52/20 with mean of 34, wedge 21, PA sat 51.9. Cardiac output/index 2.5/1.4. PVR 5. SVR 2232.
-RATNA 09/29/2024 at [facility] with EF 25 to 30%, severe RV dilatation and moderate to severe decreased RV systolic function, moderate MR and TR
-No chest pain suggestive of angina
-Continue IV dobutamine gtt
-Continue gentle diuresis
-Will hold oral heart failure regimen at this time including Entresto, Farxiga, and metoprolol
-Extensive at [facility] In September; Reviewed available records however still waiting for hospital consultation and notes from cardiology.
-Consider right heart catheterization next week
Atrial fibrillation/atrial flutter, Rates relatively controlled
-Records from previous bedspring assembler indicates history of paroxysmal atrial fibrillation and atrial flutter.
-Continue oral anticoagulation with Xarelto -Will hold Xarelto possible procedure Saturday
History of coronary artery disease, elevated troponin
- Status post CABG x 2 and mitral valve annuloplasty ring in 2012
- Left heart cath 09/28/2024 showed widely patent bypass grafts
- Troponin 0.114- and trending down. No chest pain and suspect Nonischemic myocardial injury due to acute illness
- LDL 49 10/04/2024; Patient takes Repatha as an outpatient
History of COPD/bullous emphysema�stable
Will follow with you closely
Updated daughter Owen
Progress Note - Medical Device Sales Consultant
Subjective
Date of Service: December 06, 2024
Patient was seen and examined sitting out of bed to chair. Still having rigors and chills. This morning had a fever to 102.7
Objective
Labs:
12/05/24 03:51
12/06/24 03:52
Labs
Hgb 13.5 g/dL (13.0-18.0) 12/05/24 03:51
Hct 38.0 % (39.0-52.0) L 12/05/24 03:51
Plt Count 131 10^3/uL (130-400) 12/05/24 03:51
Sodium 131 mmol/L (135-145) L 12/06/24 03:52
Potassium 4.5 mmol/L (3.5-5.1) 12/06/24 03:52
BUN 27 mg/dl (9-20) H 12/06/24 03:52
Creatinine 1.0 mg/dL (0.7-1.3) 12/06/24 03:52
Glucose 90 mg/dl (70-99) 12/06/24 03:52
Troponins
12/04/24 12/04/24 12/04/24
02:20 06:43 13:13
Troponin I 0.114 H* 0.097 H* 0.075 H*
12/04/24
17:25
Troponin I 0.062 H*
Vital Signs and I&O:
Vital Signs
Temp Pulse Resp BP Pulse Ox
98.0 F 92 18 126/70 94
12/06/24 06:20 12/06/24 11:17 12/06/24 11:17 12/06/24 04:00 12/06/24 11:17
Vital Signs
Temp Pulse Resp BP Pulse Ox
98.0 F 92 18 126/70 94
12/06/24 06:20 12/06/24 11:17 12/06/24 11:17 12/06/24 04:00 12/06/24 11:17
Intake & Output
12/04/24 12/05/24 12/06/24 12/07/24
06:59 06:59 06:59 06:59
Intake Total 418.8 / 418.8 528 / 528
Output Total 300 / 300 1200 / 1200 1300 / 1300
Balance -300 / -300 -781.2 / -781.2 -772 / -772
Physical Exam
Physical Exam
GEN: Sitting out of bed to chair with multiple blankets. Positive chills
HEENT: mmm.
LUNGS: Bronchovesicular breath sounds with coarse rhonchi and fine crackles at the bases.
CV: Irregularly irregular, 2/6 systolic murmur left sternal border
ABD: soft, BS+, NT/ND
EXT: No edema, extremities warm
--- NOTE | 2024-12-06 11:40 | CON.ID ---
Consultation
-
Date/Time Consultation Requested: December 06, 2024 0723
Date/Time Consultation Performed: December 06, 2024 1140
Requesting Provider: Dr. Melvin Felix
Performing Provider: Dr. Jeaneth Carter
Reason for Consultation: Fever
Chief Complaint / Past History
Chief Complaint
Shortness of breath
History of Present Illness
79-year-old male with history of COPD, atrial fibrillation, hypertension, CAD status post CABG x 2 who was diagnosed with cardiomyopathy July 2024 at [place] when he was hospitalized for pneumonia and COVID and transferred to [facility] for management. In September he was readmitted to [facility], underwent cardiac catheterization, and RATNA. He then moved from [place] to live with his daughter here at [place]. In November 05 to November 16 he was hospitalized
here with hypoxia and shortness of breath. CAT scan showed right upper lobe 2.2 cm consolidation with air bronchograms as well as in the lateral right middle lobe. He was on IV ceftriaxone and doxycycline then discharged on cefdinir plus
doxycycline to complete a total 10 days. Patient reports he never improved at home. He continued to have shortness of breath especially with activity. Cough is nonproductive. Positive fatigue. He returned to the hospital on December 04. Chest x-ray
without acute change. He was to get he received Zosyn then changed to ceftriaxone plus doxycycline. Patient was hypotensive. He is currently on dobutamine. Yesterday patient had shivering episodes. Procalcitonin 0.69. Lactic acid 1.5. Chest
CT shows secretions within the distal trachea extending into the right mainstem bronchus, there is slight decrease in the right upper lobe opacity. Earlier this morning he developed fever 102.7. Today he reports no improvement of the shortness of
breath. Feels weak. He reports that the intermittent shivering episodes have been going on for years. No sweats. Positive for allergic rhinorrhea. No sore throat. No chest pain. Is constipated. No nausea or vomiting. No diarrhea. No
urinary symptoms. No recent travel history. Has 1 dog.
Past History
Additional Past Medical History:
COPD
Afib
Cardiomyopathy requiring lifevest
CAD s/p CABG x 2
Mitral valve annuloplasty ring
HTN
Blind
hx cornea transplant
Allergy History:
atorvastatin Allergy (Verified 12/03/24 22:29)
Unknown
clarithromycin [From Biaxin] Allergy (Verified 12/03/24 22:29)
Unknown
pantoprazole Allergy (Verified 12/03/24 22:29)
Unknown
Medications Reviewed: Yes
Current Antibiotics:
Ceftriaxone (d3)
doxycycline (d3)
Social History
Tobacco: Former Smoker
Alcohol: None
Drug: None
Living: With Family (Daughter)
Employment: Retired ([employer] industry)
Family History
Family History: Not Pertinent
Review of Systems
Review of Systems
General: Chills and Change in Appetite
HEENT: Negative Headache or Pharyngitis
Cardiovascular: Negative Chest Pain
Respiratory: Dyspnea and Cough; Negative Sputum Production
Gasteroenterology: Negative Nausea, Vomiting or Diarrhea
Genital / Urological: Negative Dysuria or Flank Pain
Endocrine: Weakness
Musculoskeletal: Negative Joint Swelling
Skin / Hair / Nails: Negative Rash
Neurological: Negative Dizziness
All systems: All other systems were reviewed and were negative
Vital Signs
Temp Pulse Resp BP Pulse Ox
98.0 F 92 18 126/70 94
12/06/24 06:20 12/06/24 11:17 12/06/24 11:17 12/06/24 04:00 12/06/24 11:17
Physical Exam
Physical Exam
Constitutional: Acutely Ill, Chronically Ill and Other (Shivering)
Head: Other (No frontal or maxillary sinus tenderness)
Eyes: No Conjunctival Hemorrhage and Sclera Anicteric
Cardiovascular: Irregular Rate and S1/S2
Pulmonary: Clear; Negative Wheezes or Rales
Gastrointestinal: Soft, Non Tender and Non Distended
Genito-Urinary: Negative CVA Tenderness
Extremities: Negative Edema
Musculoskeletal: Negative Spinal Tenderness
Neurological: AO x 3
Lab / Diagnostic Study Results
12/05/24 03:51
12/06/24 03:52
Abs Immat Gran (auto) 0.1 10^3/uL (0-0.05) H 12/03/24 23:23
Absolute Neuts (auto) 8.1 10^3/uL (1.4-6.5) H 12/03/24 23:23
Absolute Lymphs (auto) 0.8 10^3/uL (1.2-3.4) L 12/03/24 23:23
Absolute Monos (auto) 1.0 10^3/uL (0.1-0.6) H 12/03/24 23:23
Absolute Basos (auto) 0.0 10^3/uL (0-0.2) 12/03/24 23:23
Immature Gran % 0.5 % (0-0.5) 12/03/24 23:23
Neutrophils % 80.9 % (42.2-75.2) H 12/03/24 23:23
Lymphocytes % 8.3 % (20.5-51.1) L 12/03/24 23:23
Monocytes % 9.9 % (1.7-9.3) H 12/03/24 23:23
Eosinophils % 0.1 % (0-6) 12/03/24 23:23
Basophils % 0.3 % (0-2) 12/03/24 23:23
Lactic Acid 1.5 mmol/L (0.7-2.0) 12/05/24 14:30
Procalcitonin 0.69 ng/ml (0.0-0.25) H 12/05/24 14:30
Ur Squamous Epith Cells 11-15 /LPF (Few) 05/17/25 15:31
Microbiology Results
Micro:
12/05/24 15:31 Legionella Urinary Antigen - Final
Urine Negative for Legionella pneumophila Serogroup 1 antigen.
A negative result does not rule out the possiblity of
Legionella infection due to other serogroups or species of
Legionella. Clinical correlation is recommended.
Streptococcus pneumoniae Antigen (M - Final
Negative for Streptococcus pneumoniae antigen.
A negative result does not exclude infection with
Streptococcus pneumoniae. Clinical correlation is
recommended.
12/05/24 CT chest: Severe apical predominant emphysematous changes which are similar in appearance to prior. There are decreased size of the opacities within the lateral right upper lobe and right middle lobe which are favored to represent improving
pneumonia. Additionally there is decreased size of the right hilar lymph node which is likely reactive.
12/04/24 CXR: No acute cardiopulmonary process within the limitations as described.
Assessment / Plan
# Fever
# RUL/RML PNA
# SOB
# Intermittent shivering x 'many years'
# CAD, HFrEF, Afib, MV repair
# Cardiogenic hypotension on dobutamine
- Recent tx for CAP with Cephalosporin/doxy in October 2024
- Repeat 12/05 CT shows some improvement but not resolved RUL/RML opacity as compared to 11/05 CT.
- Passed swallow screen.
- Check blood cx's x 2.
- Broaden ceftriaxone to cefepime to cover for possible HAP given recent multiple hospitalizations.
- Follow temps.
[2024-12-06] MEDS: ROCEPHIN IV (13:37)
[2024-12-06] MEDS: STERILE WATER FOR INJECTION IV (13:38)
--- NOTE | 2024-12-06 14:01 | CHAP ---
Mr. Vargas was welcoming, said he has a daughter in the area. Emotional and spiritual support provided.
[2024-12-06 14:12] LABS: COVID-19 Antigen Negative (Negative)
--- NOTE | 2024-12-06 14:28 | W.PN.PUL3 ---
Today's Communication / Plan
-
Empirically continue antibiotics per ID
Continue dobutamine as per cardiology given hypotension with biventricular dysfunction
He does have significantly elevated PA pressures although this is stable/chronic
IV diuresis, trending UOP + strict I/O
Trend WBC and fever curve
Continue Trelegy and nebulized albuterol
Pulmonary service will continue to follow along
Assessment
-
79-year-old male with a history of COPD usually taken care of at [facility] who also has CHF, atrial fibrillation presenting with shortness of breath after recently being treated for multifocal pneumonia and now again noted to have
pneumonia-pulmonary was consulted for pneumonia/COPD 12/04/2024
Right upper lobe community-acquired pneumonia-recent multifocal pneumonia
Heart failure with reduced EF
RHINA - improved
COPD with mild acute exacerbation
Elevated troponin
Conditions present prior to admission:
Recent hospitalization 11/05/24 for multifocal pneumonia and chronic systolic heart failure
COPD on nocturnal oxygen-followed by Dr. Suarez-Katy-maintained on Trelegy, nebulizers and albuterol as needed in addition to nocturnal oxygen
Atrial fibrillation.
Heart failure reduced EF.
Hypertension.
Blindness.
Deafness.
Recurrent cataract extraction. 7 eye surgeries in the last 3 years. Corneal transplant twice. Maybe
Plan
Respiratory decompensation likely related to bronchitis/pneumonia and COPD exacerbation in addition to component of heart failure reduced EF
Supplemental oxygen as needed - currently on room air breathing comfortably
Assess discharge supplemental oxygen needs at the time of discharge
Continue Trelegy 100 mcg --> changed DuoNebs to nebulized albuterol
Mucolytics with Mucinex
Singulair continues
Aspiration precautions
Diet as per SYSTEMS REQUIREMENTS PLANNER (cleared for regular solids with thin liquids)
Mucus clearing devices
Low threshold for steroid initiation if does not improve and wheezing persists
Check sputum culture if he can produce a decent sample
Blood cultures rechecked today (12/06) as he spiked a fever overnight to 102.7 �F
Urine antigens for Legionella + strep pneumo both negative
Empiric antibiotics-currently on cefepime + doxycycline s/p rocephin (defer to ID)
UA negative for signs of UTI on 12/05
Procalcitonin checked and is 0.69 - continue empiric antibiotics for now although there is no current evidence of a new pneumonia as the consolidation in his lateral RML is improving and was seen previously on CTA chest from 11/05/2024
Diuresis as tolerated � currently on IV Lasix 40 mg once daily
Troponin peaked at 0.114 � no longer need to continue trending at this time
Monitor renal function, electrolytes, intake/output, lower extremity edema and weight
Replace electrolytes as needed
DVT prophylaxis-on Xarelto
Nutrition
Early mobilization
Outpatient pulmonary [id number]. Beka Molina would be happy to follow-up locally if he relocates
Pulmonary service will continue to follow him
Diagnostic data:
Chest x-ray bibasilar regions partially obscured
CT chest 11/05/24-no evidence for central pulmonary embolism, 2.2 cm consolidation with air bronchograms right upper lobe as well as 2.4 cm consolidation right middle lobe with air bronchograms likely representing pneumonia, severe apical predominant
emphysematous changes
Total time spent today was 36 minutes for this encounter. Time includes reviewing laboratory test/imaging results, reviewing pertinent medical records, obtaining and reviewing medical history, performing an appropriate exam, ordering medications,
tests and procedures. Time also includes documentation of this encounter, coordinating patient care and communicating with other healthcare professionals. Total time does not include separately billed tests performed on this date of service.
Subjective Data
-
Date of Service:
Date of Service: December 06, 2024
Chief Complaint: Pulmonary Follow Up
Subjective:
Patient seen today at bedside. Sleeping in no acute distress. Currently on dobutamine at 2 mcg/kg/min. Heart rate 92, BP 125/108 and saturating 94% on room air. No acute events reported from overnight. Patient currently denies chest pain, DAIVS,
or chills.
Review of Systems
General: Other (Negative unless mentioned above)
Objective Data
Data Reviewed
Vital Signs / I&O / Oxygen:
Vital Signs
Temp Pulse Resp BP Pulse Ox
98.0 F 74 18 126/70 99
12/06/24 06:20 12/06/24 07:45 12/06/24 07:45 12/06/24 04:00 12/06/24 07:45
Intake and Output
12/05/24 12/06/24 12/07/24
06:59 06:59 06:59
Intake Total 418.8 / 418.8 528 / 528
Output Total 1200 / 1200 1300 / 1300
Balance -781.2 / -781.2 -772 / -772
SaO2 99
Nasal Cannula flow liters per 1
minute
Physical Exam
General: Respiratory Distress (negative), Comfortable, Chills (negative) and Sweats (negative)
HEENT: Normocephalic and Anicteric
Cardiovascular: S1-S2 and Peripheral Edema (negative)
Respiratory: Wheeze (negative), Crackles (Rare crackle), Rhonchi (Upon expiration) and Non-Labored Respirations
GI: Soft, Non Distended, Non Tender and Normal Bowel Sounds
Neurology: AO x 3 and Tremors (negative)
Skin: Warm, Dry, Cyanosis (negative) and Jaundice (negative)
Labs/Micro/Reports
Lab Data
12/05/24 03:51
12/06/24 03:52
Microbiology
12/05/24 15:31 Urine Legionella Urinary Antigen - Final
Negative for Legionella pneumophila Serogroup 1 antigen.
A negative result does not rule out the possiblity of
Legionella infection due to other serogroups or species of
Legionella. Clinical correlation is recommended.
12/05/24 15:31 Urine Streptococcus pneumoniae Antigen (M - Final
Negative for Streptococcus pneumoniae antigen.
A negative result does not exclude infection with
Streptococcus pneumoniae. Clinical correlation is
recommended.
[2024-12-06] MEDS: MAXIPIME 1000 MG IV ×2 (17:39→23:23)
[2024-12-06] MEDS: STERILE WATER FOR INJECTION 10 ML IV ×2 (17:40→23:23)
[2024-12-06] MEDS: DOBUTREX 500 MG 250 IV (17:41)
--- NOTE | 2024-12-06 17:50 | PTCARENOTE ---
Patient AAOx3. Patient is legally blind and [place] [place] [employer]. Needs assistance with meals and a good setup. Assistance x1 to bathroom. Patient is weak and very shaky. Dobutamine drip infusing as ordered.
--- NOTE | 2024-12-06 19:31 | PTCARENOTE ---
After medicating patient with IV maxipime for the first time, patient immediately felt sick. He became nauseous and felt like he was going to vomit. Patient started feeling better about 15 minutes after receiving the medication. Dr. Carter
notified. Order to give the next dose of maxipime. If patient feels the same symptoms after receiving the next dose to hold the medication.
[2024-12-06] MEDS: NON-FORMULARY ITEM 1 MG PO (20:42)
[2024-12-07] VITALS (23 sets, daily range): BP systolic 92–152; BP diastolic 46–128; PULSE 85; O2SAT 95; BMI 20.6
--- NOTE | 2024-12-07 04:55 | PTCARENOTE ---
Pt received scheduled dose of maxipime without incident. Denied symptoms throughout and following administration. VSS, IV dobutamine gtt maintained at ordered rate. Pt able to take scheduled pill whole without complication. Remains in afib on CM
with occasional PVCs. 93% on RA. Call patel within reach, teaching reinforced. Care ongoing.
[2024-12-07 05:06] LABS: % Basophils 0.3 % (0-2); % Eosinophils 1.9 % (0-6); % Immature Granulocytes 0.5 % (0-0.5); % Lymphocytes 22.5 % (20.5-51.1); % Monocytes 14.8 % (1.7-9.3); Absolute Eosinophils 0.1 10^3/uL (0-0.7); Absolute Lymphocytes 1.3 10^3/uL (1.2-3.4); Absolute Monocytes 0.9 10^3/uL (0.1-0.6); Absolute Neutrophils 3.5 10^3/uL (1.4-6.5); Hematocrit 37.4 % (39.0-52.0); Hemoglobin 13.3 g/dL (13.0-18.0); Mean Corp Hgb Conc. 35.6 g/dL (33.0-37.0); Mean Corpuscular Hgb 32.8 pg (27.0-31.0); Mean Corpuscular Volume 92.1 fL (80.0-94.0); Nucleated Red Blood Cells % 0 % (-); Platelet Count 163 10^3/uL (130-400); Red Blood Cell Count 4.06 10^6/uL (4.70-6.10); Red Cell Dist. Width 14.7 % (11.5-14.5); White Blood Cell Count 5.8 10^3/uL (4.8-10.8)
[2024-12-07 05:25] LABS: Blood Urea Nitrogen 23 mg/dl (9-20); Calcium 8.8 mg/dl (8.4-10.2); Carbon Dioxide 21 mmol/L (22-30); Chloride 104 mmol/L (98-107); Estimated Creatinine Clearance 53 ml/min; Glucose 100 mg/dl (70-99); Potassium 4.3 mmol/L (3.5-5.1); Sodium 130 mmol/L (135-145); eGFR > 60.00
[2024-12-07] MEDS: STERILE WATER FOR INJECTION 10 ML IV (05:57)
[2024-12-07] MEDS: MAXIPIME 1000 MG IV (05:57)
[2024-12-07] MEDS: VENTOLIN NEBULES 1.25 MG INH ×4 (07:32→19:35)
[2024-12-07] MEDS: NON-FORMULARY ITEM 1 INH INH (07:33)
--- NOTE | 2024-12-07 09:10 | W.PN.PUL3 ---
Today's Communication / Plan
-
Remains stable on RA, no respiratory complaints, less likely PNA
Blood culture with enterococcus, possibly urinary source, ID following on abx
PT eval ordered, not yet seen
Likely can discontinue dobutamine per cards, planning for heart cath this week
Reviewed plan of care with RN/patient
Can likely transfer to IVU (out of IMU)
COPD/emphysema maintained on home regiment, OP FU with his electromyographic technician in [place] at d/c
Nothing further to offer from our standpoint, can sign off at this time, please call with questions
Assessment
-
79-year-old male with a history of COPD usually taken care of at [facility] who also has CHF, atrial fibrillation presenting with shortness of breath after recently being treated for multifocal pneumonia and now again noted to have
pneumonia-pulmonary was consulted for pneumonia/COPD 12/04/2024
Right upper lobe community-acquired pneumonia-recent multifocal pneumonia
Heart failure with reduced EF
RHINA - improved
COPD with mild acute exacerbation
Elevated troponin
Conditions present prior to admission:
Recent hospitalization 11/05/24 for multifocal pneumonia and chronic systolic heart failure
COPD on nocturnal oxygen-followed by Dr. Suarez-Newcomb-maintained on Trelegy, nebulizers and albuterol as needed in addition to nocturnal oxygen
Severe apical BL emphysema on CT
Atrial fibrillation.
Heart failure reduced EF.
Hypertension.
Blindness.
Deafness.
Recurrent cataract extraction. 7 eye surgeries in the last 3 years. Corneal transplant twice. Maybe
Plan
Respiratory decompensation likely related to bronchitis/pneumonia and COPD exacerbation in addition to component of heart failure reduced EF
Now improved, stable sats on RA
Continue Trelegy 100 mcg --> changed DuoNebs to nebulized albuterol
Mucolytics with Mucinex
Singulair continues
Aspiration precautions
Diet as per MECHANICAL ASSEMBLY TECHNICIAN (cleared for regular solids with thin liquids)
Mucus clearing devices
Check sputum culture if he can produce a decent sample
Blood cultures rechecked today (12/06) as he spiked a fever overnight to 102.7 �F
Blood culture + for enterococcus faecalis
Urine antigens for Legionella + strep pneumo both negative
ID consult obtained
Empiric antibiotics-currently on cefepime + doxycycline s/p rocephin (defer to ID)
UA negative for signs of UTI on 12/05
Procalcitonin checked and is 0.69
Diuresis as tolerated � currently on IV Lasix 40 mg once daily
Troponin peaked at 0.114 � no longer need to continue trending at this time
Monitor renal function, electrolytes, intake/output, lower extremity edema and weight
Replace electrolytes as needed
Dobutamine low dose but MAP is >90, consider discontinuation
Plan per cards for possible heart cath this week
DVT prophylaxis-on Xarelto
Nutrition
Early mobilization
PT OT eval placed, not yet seen, appears deconditioned
Outpatient pulmonary [id number]-CbDr. Beka Molina
Follow up OP at discharge
Diagnostic data:
Chest x-ray bibasilar regions partially obscured
CT Chest 12/05/24- 1. Severe apical predominant emphysematous changes which are similar in appearance to prior.
2. There are decreased size of the opacities within the lateral right upper lobe and right middle lobe which are favored to represent improving pneumonia. Additionally there is decreased size of the right hilar lymph node which is likely reactive.
CT chest 11/05/24-no evidence for central pulmonary embolism, 2.2 cm consolidation with air bronchograms right upper lobe as well as 2.4 cm consolidation right middle lobe with air bronchograms likely representing pneumonia, severe apical predominant
emphysematous changes
-----
Total time spent today was 50 minutes for this encounter. Time includes reviewing laboratory test/imaging results, reviewing pertinent medical records, obtaining and reviewing medical history, performing an appropriate exam, ordering medications,
tests and procedures. Time also includes documentation of this encounter, coordinating patient care and communicating with other healthcare professionals. Total time does not include separately billed tests performed on this date of service.
Subjective Data
-
Date of Service:
Date of Service: December 07, 2024
Chief Complaint: Pulmonary Follow Up
Subjective:
Sitting in chair, stable on RA
Has many complaints including chills, weakness, dizziness with standing, cold hands/feet
Remains on low dose dobutamine, MAP is >90
Remains on abx as well
Objective Data
Data Reviewed
Vital Signs / I&O / Oxygen:
Vital Signs
Temp Pulse Resp BP Pulse Ox
98.4 F 80 24 114/60 96
12/07/24 03:08 12/07/24 07:36 12/07/24 07:36 12/07/24 06:00 12/07/24 07:36
Intake and Output
12/06/24 12/07/24 12/08/24
06:59 06:59 06:59
Intake Total 528 / 528 1180 / 1180
Output Total 1300 / 1300 960 / 960
Balance -772 / -772 220 / 220
SaO2 96
Nasal Cannula flow liters per 1
minute
Physical Exam
General: Respiratory Distress (negative), Comfortable, Chills (negative), Sweats (negative) and Good Appetite
HEENT: Normocephalic, Anicteric and Moist Mucous Membranes
Cardiovascular: S1-S2, Regular Rhythm and Peripheral Edema (negative)
Respiratory: Clear and Non-Labored Respirations
GI: Soft, Non Distended, Non Tender and Normal Bowel Sounds
Neurology: AO x 3 and Tremors (negative)
Skin: Warm, Dry, Cyanosis (negative) and Jaundice (negative)
Labs/Micro/Reports
Lab Data
12/07/24 04:47
12/07/24 04:47
Microbiology
12/06/24 14:34 Blood/Venous Blood Culture - Preliminary
Positive culture in progress
12/06/24 14:34 Blood/Venous Gram Stain - Preliminary
12/06/24 13:46 Nasal Swab Influenza Types A & B ([place]) - Final
Negative for Influenza A & B, NAAT
Negative results must be combined with clinical observations
and patient history.
Nucleic Acid Amplification test (NAAT)performed on the
i[employer] platform.
12/05/24 15:31 Urine Legionella Urinary Antigen - Final
Negative for Legionella pneumophila Serogroup 1 antigen.
A negative result does not rule out the possiblity of
Legionella infection due to other serogroups or species of
Legionella. Clinical correlation is recommended.
12/05/24 15:31 Urine Streptococcus pneumoniae Antigen (M - Final
Negative for Streptococcus pneumoniae antigen.
A negative result does not exclude infection with
Streptococcus pneumoniae. Clinical correlation is
recommended.
[2024-12-07] MEDS: VIBRAMYCIN 100 MG PO (09:28)
[2024-12-07] MEDS: SINGULAIR 10 MG PO (09:28)
[2024-12-07] MEDS: MIRALAX PO (09:28)
[2024-12-07] MEDS: MUCINEX 1200 MG PO ×2 (09:28→21:05)
[2024-12-07] MEDS: LASIX 40 MG IV (09:29)
[2024-12-07] MEDS: COLACE PO (09:29)
[2024-12-07] MEDS: NON-FORMULARY ITEM 1 DROP RIGHT EYE ×6 (09:31→21:06)
--- NOTE | 2024-12-07 10:48 | W.PN.CARDCBS ---
Today's Communication / Plan
-
RHC today
Continue Dobutamine
IV lasix
Impression / Plan
-
Primary baseball player: Dc Paz at [facility] ([phone])
PCP: Eric Etienne at [facility]
Impression:
Fever-Enterococcus faecalis bacteremia (one set 12/06)
Recent admission for multifocal RUL/RML PNA
Biventricular dysfunction with HFrEF, RV failure, severe TR, severe pulmonary HTN
Intermittent shivering x 'many years'
Coronary artery disease status post CABG x 2 2012 with patent grafts by [facility] 09/28/24 at OSH
Mitral valve disease status post mitral valve ring annuloplasty 2012
Atrial fibrillation/atrial flutter
Xarelto OAC as oupatient
HLD on Repatha
COPD on nocturnal oxygen
Severe apical BL emphysema on CT
Recurrent cataract extraction. 7 eye surgeries in the last 3 years. Corneal transplant twice
Previous cardiovascular testing:
Echo 08/21/2024: EF 33% (previously EF 50 to 60%), grade 2 diastolic dysfunction, mild AI, moderate MR, RVSP 52 mmHg
RATNA 09/29/2024 (at [facility]): LVEF 20 to 25%, RV moderately severely dilated, moderate to severe early decreased RV systolic function, biatrial mild dilatation, number 30 mm Jesu�Cody physio mitral valve annuloplasty ring
well-seated, moderate MR, mild AI, moderate TR, aorta 3.7 cm at sinus of Valsalva ascending aorta 3.5 cm, PFO with [id number] shunting
Cardiac catheterization 09/28/2024 at [facility]:
RA 16, PA 52/20, PCWP 21, V wave 23, CO/CI 2.58/1.4
CASTRO to distal LAD widely patent, SVG to distal RCA widely patent
[place] coronary arteries: LAD 100% mid vessel occlusion, left circumflex 50 to 60% mid vessel stenosis, RCA 100% proximal occlusion
Outpatient FLP 10/04/2024: LDL 49, HDL 28, TG 60, total cholesterol 91
proBNP 09/29/2024: 8593
proBNP 10/04/2024: 5390
Plan:
Medically complex 79-year-old gentleman admitted with shortness of breath and recent hospitalization for multifocal pneumonia and underlying COPD as well as significant cardiac history now with hypotension and concern for shock
Rigors/chills with 1st fever 12/06- blood cultures 12/06 with Enterococcus faecalis
-Recent multifocal pneumonia In October;CT done today showed some improvement with no evidence of new pneumonia.
-Antibiotic adjustments per ID
-Repeat cultures
-If patient becomes more hypotensive would start Levophed
-TSH within normal limits, cortisol acceptable.
-Appreciate supervisor agricultural education input
-ID consult
Biventricular failure with severe right sided chamber dilatation and reduced RV systolic function with severe tricuspid regurgitation and pulmonary hypertension
-proBNP 8890 (was 6580 during 11/05/2024 admit to for pneumonia)
-Echocardiogram yesterday with ejection fraction improved when compared to studies done at [facility]. LV ejection fraction estimated approximately 40%
-Right and left heart cath 09/28/2024 at [facility] showed patent bypass grafts.RA 16, PA 52/20 with mean of 34, wedge 21, PA sat 51.9. Cardiac output/index 2.5/1.4. PVR 5. SVR 2232.
-RATNA 09/29/2024 at [facility] with EF 25 to 30%, severe RV dilatation and moderate to severe decreased RV systolic function, moderate MR and TR
-No chest pain suggestive of angina
-Continue IV dobutamine gtt at 2 and plan for RHC today to assess response
-Continue gentle diuresis
-Will hold oral heart failure regimen at this time including Entresto, Farxiga, and metoprolol
-Extensive at [facility] In September; Reviewed available records however still waiting for hospital consultation and notes from cardiology.
Atrial fibrillation/atrial flutter, Rates relatively controlled
-Records from previous baseball player indicates history of paroxysmal atrial fibrillation and atrial flutter.
-Continue oral anticoagulation with Xarelto -Currently on Heparin for RHC Saturday. Will resume Xarelto after RHC
History of coronary artery disease, elevated troponin
- Status post CABG x 2 and mitral valve annuloplasty ring in 2012
- Left heart cath 09/28/2024 showed widely patent bypass grafts
- Troponin 0.114- and trending down. No chest pain and suspect Nonischemic myocardial injury due to acute illness
- LDL 49 10/04/2024; Patient takes Repatha as an outpatient
History of COPD/bullous emphysema�pulmnonary following
Will follow with you closely
Updated daughter Owen
Progress Note - Law Reporter
Subjective
Date of Service: December 07, 2024
Seen and examined. Less rigors this am- no new complaints
Objective
Labs:
12/07/24 04:47
12/07/24 04:47
Labs
Hgb 13.3 g/dL (13.0-18.0) 12/07/24 04:47
Hct 37.4 % (39.0-52.0) L 12/07/24 04:47
Plt Count 163 10^3/uL (130-400) D 12/07/24 04:47
Sodium 130 mmol/L (135-145) L 12/07/24 04:47
Potassium 4.3 mmol/L (3.5-5.1) 12/07/24 04:47
BUN 23 mg/dl (9-20) H 12/07/24 04:47
Creatinine 1.0 mg/dL (0.7-1.3) 12/07/24 04:47
Glucose 100 mg/dl (70-99) H 12/07/24 04:47
Troponins
12/04/24 12/04/24
13:13 17:25
Troponin I 0.075 H* 0.062 H*
Vital Signs and I&O:
Vital Signs
Temp Pulse Resp BP Pulse Ox
98.4 F 89 24 122/77 96
12/07/24 03:08 12/07/24 09:29 12/07/24 07:36 12/07/24 09:29 12/07/24 07:36
Vital Signs
Temp Pulse Resp BP Pulse Ox
98.4 F 89 24 122/77 96
12/07/24 03:08 12/07/24 09:29 12/07/24 07:36 12/07/24 09:29 12/07/24 07:36
Intake & Output
12/05/24 12/06/24 12/07/24 12/08/24
06:59 06:59 06:59 06:59
Intake Total 418.8 / 418.8 528 / 528 1180 / 1180
Output Total 1200 / 1200 1300 / 1300 960 / 960
Balance -781.2 / -781.2 -772 / -772 220 / 220
Physical Exam
Physical Exam
GEN: Sitting out of bed to chair with multiple blankets.
HEENT: mmm.
LUNGS: Bronchovesicular breath sounds with coarse rhonchi and fine crackles at the bases.
CV: Irregularly irregular, 2/6 systolic murmur left sternal border
ABD: soft, BS+, NT/ND
EXT: No edema, extremities warm
--- NOTE | 2024-12-07 11:34 | W.PN.ID1 ---
Date of Service
Date of Service: December 07, 2024
Today's Communication
- DC cefepime and doxycycline.
- Start Ampicillin 2g IV q6 plus ceftriaxone [id number].
Assessment / Plan
# Enterococcus faecalis bacteremia (1 of 1 set)
# Fever resolved
# RUL/RML PNA
# SOB/COPD
# Intermittent shivering x 'many years'
# CAD, HFrEF, Afib, MV repair with annuloplasty ring
# Cardiogenic hypotension on dobutamine
- Recent tx for CAP with Cephalosporin/doxy in October 2024
- Repeat 12/05 CT shows some improvement but not resolved RUL/RML opacity as compared to 11/05 CT.
- Passed swallow screen.
- 12/06 ceftriaxone to cefepime to cover for possible HAP given recent multiple hospitalizations.
-12/05 UA neg
- 12/06 bcx / set + E. faecalis
- Repeat 2 sets of bcx's today. If sustained, consider infective endocarditis. He does have MV annuloplasty ring.
- DC cefepime and doxycycline.
- Start Ampicillin 2g IV q6 plus ceftriaxone [id number].
Chief Complaint
-: Fever
Subjective / Review of Systems
Does not feel any better. No shivering episodes overnight.
Vital Signs / Physical Exam
Vital Signs
Vital Signs
Temp Pulse Resp BP Pulse Ox
97.9 F 89 24 122/77 96
12/07/24 11:03 12/07/24 09:29 12/07/24 07:36 12/07/24 09:29 12/07/24 07:36
Physical Exam
Constitutional: Chronically Ill
Eyes: Sclera Anicteric
Cardiovascular: Irregular Rate and S1/S2
Pulmonary: Rales (RUL crackles)
Gastrointestinal: Soft, Non Tender and Non Distended
Genito-Urinary: Negative Suprapubic Tenderness or CVA Tenderness
Extremities: Negative Edema
Neurological: AO x 3
Objective Data
Lab Data
Lab Results
12/07/24 04:47
12/07/24 04:47
Estimated Creat Clear 53 ml/min 12/07/24 04:47
Lactic Acid 1.5 mmol/L (0.7-2.0) 12/05/24 14:30
Total Bilirubin 1.3 mg/dl (0.2-1.3) 12/03/24 23:23
AST 22 U/L (17-59) 12/03/24 23:23
ALT 19 U/L (0-50) 12/03/24 23:23
Alkaline Phosphatase 71 U/L (38-126) 12/03/24 23:23
Most recent labs reviewed.
Micro Results:
12/07/24 10:54 Blood Culture - Pending
Blood/Venous
12/07/24 09:55 Blood Culture - Pending
Blood/Venous
12/06/24 14:34 Blood Culture - Preliminary
Blood/Venous Enterococcus faecalis
Gram Stain - Preliminary
12/06/24 13:46 Influenza Types A & B ([place]) - Final
Nasal Swab Negative for Influenza A & B, NAAT
Negative results must be combined with clinical observations
and patient history.
Nucleic Acid Amplification test (NAAT)performed on the
Xi3 platform.
12/05/24 15:31 Legionella Urinary Antigen - Final
Urine Negative for Legionella pneumophila Serogroup 1 antigen.
A negative result does not rule out the possiblity of
Legionella infection due to other serogroups or species of
Legionella. Clinical correlation is recommended.
Streptococcus pneumoniae Antigen (M - Final
Negative for Streptococcus pneumoniae antigen.
A negative result does not exclude infection with
Streptococcus pneumoniae. Clinical correlation is
recommended.
12/05/24 CT chest: Severe apical predominant emphysematous changes which are similar in appearance to prior. There are decreased size of the opacities within the lateral right upper lobe and right middle lobe which are favored to represent improving
pneumonia. Additionally there is decreased size of the right hilar lymph node which is likely reactive.
12/04/24 CXR: No acute cardiopulmonary process within the limitations as described.
Care Review
Plan reviewed with: Other (Pharmacist Edgar)
--- NOTE | 2024-12-07 12:08 | W.PN.HOSP.TC ---
Addendum entered and electronically signed by Ryne Eller DO 12/14/24 09:19:
CDI: COPD with exacerbation
Original Note:
Today's Communication/Plan
-
IV antibiotics per ID
Continue IV Lasix/hold GDMT
RHC today
Repeat blood culture
Consider RATNA if persistent bacteremia on blood cultures
Assessment / Plan
Assessment / Plan
#Circulatory shock - Likely multifactorial with sepsis and cardiogenic state (?). Blood cultures positive with Enterococcus faecalis, unclear source, concern for possible endocarditis with history of MV annuloplasty. Does not have classic features
of septic shock. S/p dobutamine drip and midodrine. Blood pressure improved. Difficult volume assessment, elevated BNP though exam appears euvolemic. IV cefepime and doxycycline have been transitioned to IV ceftriaxone and ampicillin by ID.
Follow-up repeat blood cultures, if persistently positive consider RATNA. Monitor vitals off hemodynamic support. Follow up RHC.
#Acute on chronic heart failure reduced EF - echocardiogram done December 04 shows LVEF 40 to 45%, hypokinesis most notable in the apical and septal segments, mitral valve repair with anoplasty ring, mild to moderate MR. Mild AR. Dilated and
hypokinetic RV, markedly dilated RA, severe TR. Pulmonary hypertension with PA systolic pressure 60 to 65 mmHg. Home GDMT held due to circulatory shock. Remains on IV Lasix. Cardiology following. Planning for RHC today
#Hyponatremia -likely from IV diuresis, has been stable with sodium near 130-135 range. Monitor for now.
#Troponin elevation -no chest pain. Suspect acute nonischemic myocardial injury due to acute illness. Troponin trending down. Cardiology consulted.
#Prerenal azotemia/RHINA -BUN 38, creatinine 1.3. Previous creatinine 0.8. Differential diagnosis of volume depletion versus cardiorenal syndrome versus other. BUN and creatinine improving with diuresis.
#Chronic atrial fibrillation -on Xarelto.
#COPD without exacerbation
#Blindness -with recent corneal transplant.
Home Xarelto (Held for RHC today)
Full code -confirmed with patient.
PT consult pending'
NPO for RHC
Anticipated Discharge: > 48 hours
Subjective/Interval History
-
Date of Service: December 07, 2024
Seen and examined while sitting in the chair. No acute events overnight. AFVSS
Status post dobutamine drip. Hemodynamically stable, labs stable. I/Os mildly net positive though down 2 kg in last 24 hours
Patient states he feels well today and has no complaints
Objective Data
-
Labs:
Laboratory Results
12/07/24
04:47
WBC 5.8
Hgb 13.3
Hct 37.4 L
Plt Count 163 D
Sodium 130 L
Potassium 4.3
Chloride 104
Carbon Dioxide 21 L
BUN 23 H
Creatinine 1.0
Glucose 100 H
Calcium 8.8
Vital Signs:
Vital Signs
Temp Pulse Resp BP Pulse Ox
97.9 F 81 20 138/73 98
12/07/24 11:03 12/07/24 11:35 12/07/24 11:35 12/07/24 10:00 12/07/24 11:35
I&O
12/06/24 12/07/24 12/08/24
06:59 06:59 06:59
Intake Total 528 / 528 1180 / 1180
Output Total 1300 / 1300 960 / 960
Balance -772 / -772 220 / 220
Review of Systems
-
History Source: Patient
All other systems: Reviewed and negative
Physical Exam
-
General: Well Developed, No Apparent Distress, Comfortable and Other (Frail-appearing)
HEENT: Normocephalic, Atraumatic, Moist Mucous Membranes and Anicteric
Respiratory: Clear to Auscultation and Non Labored Respirations; Negative Accessory Resp Muscle Use
Cardiac: Regular Rhythm and S1/S2; Negative Murmur, Rub or Gallop
GI: Soft, Nontender, Nondistended and Normal Bowel Sounds
Musculoskeletal: No Clubbing, No Cyanosis and No Edema
Skin: Warm and Dry; Negative Rash
Neuro: AO x 3, Tremors (Intention) and Nonfocal/Grossly Intact
Psych: Calm
Data Reviewed
-
Labs: Labs Reviewed by me and Discussed with Patient
[2024-12-07] MEDS: ROCEPHIN 2000 MG IV (13:04)
[2024-12-07] MEDS: STERILE WATER FOR INJECTION 20 ML IV (13:05)
[2024-12-07] MEDS: AMPICILLIN 108 MG IV ×3 (13:24→21:05)
--- NOTE | 2024-12-07 16:11 | CM ---
Patient with Hx blindness with Dx Circulatory shock, HF. Room air. Plan RHC today. PT recommends HH. Receivng IV Lasix, IV Abx.
[facility] accepted in [facility].
[facility] continuing to follow.
Plan home with resumption [facility] VN.
--- NOTE | 2024-12-07 18:23 | ITS.CL.CATH ---
Senior Ux Designer - Catheterization
Cardiac Catheterization
Procedure Report:
RIGHT HEART CATHETERIZATION
Date of Procedure: December 07, 2024
Referring: Dr. Franci Kauffman
INDICATION: Cardiomyopathy and bacteremia
Hemodynamics (mmHg):
RA (m) : 7
RV (s/d,m) : 40/3, 7
PA (s/d, m) : 38/13, 22
PCWP (m) : 10
Brachial cuff pressure: 115/55, 79
Cardiac Output : 3.2 L/min and Cardiac Index : 1.8 L/min/m-2
Systemic vascular resistance: 22.5 Wood units or 1800 [id number](-5)
Pulmonary vascular resistance: 3.75 Wood units or 300 [id number](-5)
SEDATION: 0 minutes of procedural sedation
RADIATION SUMMARY: Fluoro Time (min): 2.3, Dose (mGy): 28, DAP (Gy.cm2) : 4.1
CONCLUSION:
1. Reasonably well compensated right and left ventricular filling pressures.
2. 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
Copy to: Dr. Franci Kauffman
--- NOTE | 2024-12-07 19:00 | PTCARENOTE ---
Patient returned from cath with right brachial dressing CDI and weak radial pulse. VSS. Patient instructed on restrictions. Will closely monitor.
[2024-12-07] MEDS: COLACE 100 MG PO (21:05)
[2024-12-07] MEDS: NON-FORMULARY ITEM 0.5 MG PO (21:06)
[2024-12-08] VITALS (14 sets, daily range): BP systolic 94–164; BP diastolic 50–127
[2024-12-08] MEDS: AMPICILLIN 108 MG IV ×7 (00:30→23:27)
[2024-12-08] MEDS: ROCEPHIN 2000 MG IV ×3 (00:31→23:27)
[2024-12-08] MEDS: STERILE WATER FOR INJECTION 20 ML IV ×3 (00:31→23:27)
--- NOTE | 2024-12-08 03:11 | PTCARENOTE ---
Received pt at change of shift. Pt activity restrictions lifted by 19:30. Dressing at cath site in right brachial C/D/I. Pulses strong in right arm. No hematoma present. Dobutamine gtt still running at 2 mcg/kg/min per order. Pt resting in bed
with call patel in reach.
[2024-12-08 05:26] LABS: % Basophils 0.6 % (0-2); % Immature Granulocytes 0.6 % (0-0.5); % Lymphocytes 18.2 % (20.5-51.1); % Monocytes 14.8 % (1.7-9.3); % Neutrophils 61.8 % (42.2-75.2); Absolute Eosinophils 0.3 10^3/uL (0-0.7); Absolute Lymphocytes 1.2 10^3/uL (1.2-3.4); Absolute Neutrophils 4.2 10^3/uL (1.4-6.5); Hematocrit 37.8 % (39.0-52.0); Hemoglobin 13.2 g/dL (13.0-18.0); Mean Corp Hgb Conc. 34.9 g/dL (33.0-37.0); Mean Corpuscular Hgb 32.3 pg (27.0-31.0); Mean Corpuscular Volume 92.4 fL (80.0-94.0); Mean Platelet Volume 10.1 fL (7.4-10.4); Nucleated Red Blood Cells % 0 % (-); Platelet Count 169 10^3/uL (130-400); Red Blood Cell Count 4.09 10^6/uL (4.70-6.10); Red Cell Dist. Width 14.6 % (11.5-14.5); White Blood Cell Count 6.8 10^3/uL (4.8-10.8)
[2024-12-08 05:44] LABS: Blood Urea Nitrogen 24 mg/dl (9-20); Calcium 8.9 mg/dl (8.4-10.2); Carbon Dioxide 25 mmol/L (22-30); Chloride 103 mmol/L (98-107); Estimated Creatinine Clearance 53 ml/min; Glucose 104 mg/dl (70-99); Magnesium 1.9 mg/dl (1.6-2.3); Sodium 131 mmol/L (135-145); eGFR > 60.00
[2024-12-08] MEDS: NON-FORMULARY ITEM 1 INH INH (07:47)
[2024-12-08] MEDS: VENTOLIN NEBULES 1.25 MG INH ×2 (07:47→11:39)
--- NOTE | 2024-12-08 08:19 | PTCARENOTE ---
Pt sleeping on walking rounds, Dobutamine at 2 mcg , Ampicillin q 4hr. Pt blind and [place]. Stands at bedside to void. Pleasant and cooperative when awake
[2024-12-08] MEDS: MUCINEX 1200 MG PO ×2 (08:22→20:08)
[2024-12-08] MEDS: MIRALAX 17 GRAMS PO (08:22)
[2024-12-08] MEDS: LASIX 40 MG IV (08:22)
[2024-12-08] MEDS: SINGULAIR 10 MG PO (08:23)
[2024-12-08] MEDS: COLACE 100 MG PO ×2 (08:23→20:08)
[2024-12-08] MEDS: NON-FORMULARY ITEM 1 DROP RIGHT EYE ×6 (08:28→20:09)
--- NOTE | 2024-12-08 08:42 | PN.CDI ---
CDI
- -
CDI:
Physician Documentation Request
Admit Date: 12/04/24 04:44
Dear Doctor,
Patient admitted with heart failure.
12/06 Pulmonary PN: 'COPD with mild acute exacerbation...Continue Trelegy 100 mcg --> changed DuoNebs to nebulized albuterol, Mucolytics with Mucinex, Singulair continues'
12/07 Hospitalist PN: 'COPD without exacerbation'
Clarify which of the following accurately represents the patient's respiratory status:
COPD with exacerbation
COPD - stable chronic disease
Other
Use of terms such as suspected, likely, concern for, or probable (associated with a specific diagnosis that is being evaluated, monitored, or treated as if it exists) are acceptable and can be coded in the inpatient setting, when documented at the
time of discharge.
Thank you,
Susana Kearney RN, BSN
CDI Specialist
Available via [employer] text
Please use your independent medical judgment in providing your response.
--- NOTE | 2024-12-08 10:11 | W.PN.ID1 ---
Date of Service
Date of Service: December 08, 2024
Today's Communication
Recommend RATNA and CT a/p.
Assessment / Plan
# Enterococcus faecalis bacteremia (3 sets )
# Fever resolved
# Recent RUL/RML PNA
# SOB/COPD
# Intermittent shivering
# CAD, HFrEF, Afib, MV repair with annuloplasty ring
# Cardiogenic hypotension on dobutamine
-12/05 UA neg
- 12/06 bcx 1/ set, 12/07 2 sets: + E. faecalis
- Follow blood cx's until clear x 2 sets
- Recommend RATNA to eval for IE especially in setting h/o MV repair with annuloplasty ring.
- CT a/p with po and IV contrast to rule out GI source.
- Pt up to date with colonoscopy within 10 years.
- Continue Ampicillin 2g IV q4H plus ceftriaxone [id number] (d2)
- Anticipate long course.
Chief Complaint
-: Fever and Bacteremia
Subjective / Review of Systems
Slept well last night. No abd pain. No diarrhea.
Vital Signs / Physical Exam
Vital Signs
Vital Signs
Temp Pulse Resp BP Pulse Ox
97.5 F 94 20 123/64 96
12/08/24 07:35 12/08/24 08:22 12/08/24 08:00 12/08/24 08:22 12/08/24 08:00
Physical Exam
Constitutional: No Acute Distress and Chronically Ill
Eyes: No Conjunctival Hemorrhage and Sclera Anicteric
Cardiovascular: Regular Rate and S1/S2
Pulmonary: Clear
Gastrointestinal: Soft, Non Tender, Non Distended and Normal Bowel Sounds
Genito-Urinary: Negative CVA Tenderness
Extremities: Negative Splinter Hemorrhage or [place] Lesions
Musculoskeletal: Negative Spinal Tenderness
Neurological: AO x 3
Objective Data
Lab Data
Lab Results
12/08/24 05:03
12/08/24 05:03
Estimated Creat Clear 53 ml/min 12/08/24 05:03
Lactic Acid 1.5 mmol/L (0.7-2.0) 12/05/24 14:30
Total Bilirubin 1.3 mg/dl (0.2-1.3) 12/03/24 23:23
AST 22 U/L (17-59) 12/03/24 23:23
ALT 19 U/L (0-50) 12/03/24 23:23
Alkaline Phosphatase 71 U/L (38-126) 12/03/24 23:23
Most recent labs reviewed.
Micro Results:
12/07/24 10:54 Blood Culture - Preliminary
Blood/Venous Positive culture in progress
Gram Stain - Preliminary
12/07/24 09:55 Blood Culture - Preliminary
Blood/Venous Positive culture in progress
Gram Stain - Preliminary
12/06/24 14:34 Blood Culture - Preliminary
Blood/Venous Enterococcus faecalis
Gram Stain - Preliminary
12/06/24 13:46 Influenza Types A & B ([place]) - Final
Nasal Swab Negative for Influenza A & B, NAAT
Negative results must be combined with clinical observations
and patient history.
Nucleic Acid Amplification test (NAAT)performed on the
[employer] platform.
12/05/24 15:31 Legionella Urinary Antigen - Final
Urine Negative for Legionella pneumophila Serogroup 1 antigen.
A negative result does not rule out the possiblity of
Legionella infection due to other serogroups or species of
Legionella. Clinical correlation is recommended.
Streptococcus pneumoniae Antigen (M - Final
Negative for Streptococcus pneumoniae antigen.
A negative result does not exclude infection with
Streptococcus pneumoniae. Clinical correlation is
recommended.
12/05/24 CT chest: Severe apical predominant emphysematous changes which are similar in appearance to prior. There are decreased size of the opacities within the lateral right upper lobe and right middle lobe which are favored to represent improving
pneumonia. Additionally there is decreased size of the right hilar lymph node which is likely reactive.
12/04/24 CXR: No acute cardiopulmonary process within the limitations as described.
Care Review
Plan reviewed with: Physician (Dr. Ramírez)
--- NOTE | 2024-12-08 11:48 | W.PN.CARDCBS ---
Addendum entered and electronically signed by Guerrero Pena MD 12/08/24 14:00:
I saw and examined the patient.
[employer]'s note was reviewed and I agree with the note.
Comment: Briefly, 79-year-old man past medical history of heart failure with reduced ejection fraction in the setting of ischemic cardiomyopathy with prior CABG/mitral valve repair (2012), atrial fibrillation, COPD on home O2 who presented with
dyspnea and was admitted for treatment of pneumonia.
Underwent right heart catheterization yesterday showing normal pulmonary capillary wedge and mildly elevated PVR
Cardiac index was reduced at 1.8 L/min/m2
Overall appears euvolemic and compensated today on exam
Will try to wean off dobutamine
Add low-dose ARB for afterload reduction
Continue to hold metoprolol for now
Blood cultures here have been positive for Enterococcus
Given history of mitral valve repair agree that RATNA would be reasonable
Was outfitted with LifeVest by his primary chemical technician. Will defer management to them. Would not be a candidate for dual-chamber ICD at this time given bacteremia.
Original Note:
Today's Communication / Plan
-
wean dobutamine
GDMT particularly afterload reduction as BP tolerates
transition to po lasix
Impression / Plan
-
Primary chemical technician: Dc Paz at [facility] ([phone])
PCP: Eric Etienne at [facility]
Impression:
Fever-Enterococcus faecalis bacteremia (one set 12/06)
Recent admission for multifocal RUL/RML PNA
Biventricular dysfunction with HFrEF, RV failure, severe TR, severe pulmonary HTN
Intermittent shivering x 'many years'
Coronary artery disease status post CABG x 2 2012 with patent grafts by [facility] 09/28/24 at OSH
Mitral valve disease status post mitral valve ring annuloplasty 2012
Atrial fibrillation/atrial flutter
Xarelto OAC as oupatient
HLD on Repatha
COPD on nocturnal oxygen
Severe apical BL emphysema on CT
Recurrent cataract extraction. 7 eye surgeries in the last 3 years. Corneal transplant twice
Previous cardiovascular testing:
Echo 08/21/2024: EF 33% (previously EF 50 to 60%), grade 2 diastolic dysfunction, mild AI, moderate MR, RVSP 52 mmHg
RATNA 09/29/2024 (at [facility]): LVEF 20 to 25%, RV moderately severely dilated, moderate to severe early decreased RV systolic function, biatrial mild dilatation, number 30 mm Jesu�Coyd physio mitral valve annuloplasty ring
well-seated, moderate MR, mild AI, moderate TR, aorta 3.7 cm at sinus of Valsalva ascending aorta 3.5 cm, PFO with [id number] shunting
Cardiac catheterization 09/28/2024 at [facility]:
RA 16, PA 52/20, PCWP 21, V wave 23, CO/CI 2.58/1.4
CASTRO to distal LAD widely patent, SVG to distal RCA widely patent
[place] coronary arteries: LAD 100% mid vessel occlusion, left circumflex 50 to 60% mid vessel stenosis, RCA 100% proximal occlusion
Outpatient FLP 10/04/2024: LDL 49, HDL 28, TG 60, total cholesterol 91
proBNP 09/29/2024: 8593
proBNP 10/04/2024: 5390
Plan:
-Medically complex 79-year-old gentleman followed by outside chemical technician with recent hospitalization for multifocal pneumonia and underlying COPD as well as significant cardiac history now with hypotension and concern for shock
-ID following. treating for enterococcal bacteremia
-proBNP on admission was 8890 and was diuresed this admission. EF was improved this admission at 40% compared to prior from OSH at 33%.
-s/p RHC 12/07 with wedge of 10. will transition back to po lasix 40mg daily
-CI was 1.8 on dobut @2. will attempt to wean off today
-SVR was elevated by RHC. would attempt to resume entresto vs arb for afterload reduction if BP will tolerate
-Right and left heart cath 09/28/2024 at [facility] showed patent bypass grafts.RA 16, PA 52/20 with mean of 34, wedge 21, PA sat 51.9. Cardiac output/index 2.5/1.4. PVR 5. SVR 2232.
-would also resume OP farxiga and toprol as able
-remains in rate controlled afib with PVCs on review of tele overnight. noted history of paroxysmal afib. xarelto resumed 12/08. could consider addition of amiodarone +/- RATNA/CV, but for now if rate controlled may defer
-trop 0.114 and trending down. cath 09/28/24 with widely patent bypass grafts
-LDL 49 10/04/2024; Patient takes Repatha as an outpatient
-main concern this morning is his vision at baseline is not good and seems to be worsening B/L since admission. will see if improves with medication changes, defer additional workup to primary service
-he wears a lifevest as OP, continue per his OP chemical technician
-will provide discs with echo and RHC images for patient to review with his chemical technician
-d/w nursing
Progress Note - Clearance Rep
Subjective
Date of Service: December 08, 2024
no CP, SOB, palpitations. complains of worsening vision
Objective
Labs:
12/08/24 05:03
12/08/24 05:03
Labs
Hgb 13.2 g/dL (13.0-18.0) 12/08/24 05:03
Hct 37.8 % (39.0-52.0) L 12/08/24 05:03
Plt Count 169 10^3/uL (130-400) 12/08/24 05:03
Sodium 131 mmol/L (135-145) L 12/08/24 05:03
Potassium 4.0 mmol/L (3.5-5.1) 12/08/24 05:03
BUN 24 mg/dl (9-20) H 12/08/24 05:03
Creatinine 1.0 mg/dL (0.7-1.3) 12/08/24 05:03
Glucose 104 mg/dl (70-99) H 12/08/24 05:03
Vital Signs and I&O:
Vital Signs
Temp Pulse Resp BP Pulse Ox
97.5 F 72 14 94/50 95
12/08/24 07:35 12/08/24 11:44 12/08/24 11:44 12/08/24 10:00 12/08/24 11:44
Vital Signs
Temp Pulse Resp BP Pulse Ox
97.5 F 72 14 94/50 95
12/08/24 07:35 12/08/24 11:44 12/08/24 11:44 12/08/24 10:00 12/08/24 11:44
Intake & Output
12/06/24 12/07/24 12/08/24 12/09/24
07:59 07:59 07:59 07:59
Intake Total 528 / 528 1180 / 1180 240 / 240 100 / 100
Output Total 1300 / 1300 960 / 960 675 / 675 600 / 600
Balance -772 / -772 220 / 220 -435 / -435 -500 / -500
Physical Exam
Physical Exam
GEN: No distress, awake, alert, oriented x3
HEENT: supple, anicteric, mmm
LUNGS: CTA B/L, no wheezes
CV: Irreg, S1/S2, 1/6 syst LSB
ABD: soft, BS+, NT/ND
EXT: No cyanosis, clubbing, edema
NEURO: Gross non-focal
SKIN: Warm, pink, dry. No rash
[2024-12-08] MEDS: OMNIPAQUE 50 ML PO (13:03)
[2024-12-08] MEDS: VENTOLIN NEBULES INH (15:22)
--- NOTE | 2024-12-08 16:31 | W.PN.HOSP.TC ---
Today's Communication/Plan
-
repeat blood cultures until 2 sets clear
RATNA
CT A/P with PO and IV cont
Assessment / Plan
Assessment / Plan
#Circulatory shock - Likely multifactorial with sepsis and cardiogenic state (?). Blood cultures positive with Enterococcus faecalis, unclear source, concern for possible endocarditis with history of MV annuloplasty. Does not have classic features
of septic shock. on dobutamine drip and midodrine. IV cefepime and doxycycline have been transitioned to IV ceftriaxone and ampicillin by ID. Follow-up repeat blood cultures, if persistently positive consider RATNA. Monitor vitals off hemodynamic
support.
#Enterococcus faecalis bacteremia
� RATNA, discussed with cardiology
� CT abdomen pelvis with p.o. and IV contrast to rule out GI source
� Continue IV antibiotics
�follow-up blood cultures until 2 sets are clear
#Acute on chronic heart failure reduced EF - echocardiogram done December 04 shows LVEF 40 to 45%, hypokinesis most notable in the apical and septal segments, mitral valve repair with anoplasty ring, mild to moderate MR. Mild AR. Dilated and
hypokinetic RV, markedly dilated RA, severe TR. Pulmonary hypertension with PA systolic pressure 60 to 65 mmHg. Home GDMT held due to circulatory shock. Remains on IV Lasix. Cardiology following. Planning for RHC 12/07 -normal pulmonary
capillary wedge and mildly elevated PVR; Add ARB; Holding BB
#Hyponatremia -likely from IV diuresis, has been stable with sodium near 130-135 range. Monitor for now.
#Troponin elevation -no chest pain. Suspect acute nonischemic myocardial injury due to acute illness. Troponin trending down. Cardiology consulted.
#Prerenal azotemia/RHINA -BUN 38, creatinine 1.3. Previous creatinine 0.8. Differential diagnosis of volume depletion versus cardiorenal syndrome versus other. BUN and creatinine improving with diuresis.
#Chronic atrial fibrillation -on Xarelto.
#COPD without exacerbation
#Blindness -with recent corneal transplant.
Home Xarelto
Full code -confirmed with patient.
Total time spent on today's encounter was 50 minutes which included time spent in counseling the patient/family regarding diagnosis and treatment plan as listed above, goals of care, and symptom management. Case was discussed with nursing staff,
specialists, and care coordinators/case management. All labs and imaging personally reviewed by me. Remainder the time spent in detailed review of previous records, lab data, imaging, and other medical provider documentation.
Anticipated Discharge: > 48 hours
Subjective/Interval History
-
Date of Service: December 08, 2024
No acute events overnight
Objective Data
-
Labs:
Laboratory Results
12/08/24
05:03
WBC 6.8
Hgb 13.2
Hct 37.8 L
Plt Count 169
Sodium 131 L
Potassium 4.0
Chloride 103
Carbon Dioxide 25
BUN 24 H
Creatinine 1.0
Glucose 104 H
Calcium 8.9
Vital Signs:
Vital Signs
Temp Pulse Resp BP Pulse Ox
97.6 F 75 24 114/67 96
12/08/24 11:05 12/08/24 12:00 12/08/24 12:00 12/08/24 12:00 12/08/24 12:00
I&O
12/07/24 12/08/24 12/09/24
06:59 06:59 06:59
Intake Total 1180 / 1180 240 / 240 150 / 150
Output Total 960 / 960 675 / 675 700 / 700
Balance 220 / 220 -435 / -435 -550 / -550
Review of Systems
-
History Source: Patient
All other systems: Not reviewed unless documented
Physical Exam
-
General: Well Developed, No Apparent Distress, Comfortable and Other (Frail-appearing)
HEENT: Normocephalic, Atraumatic, Moist Mucous Membranes and Anicteric
Respiratory: Clear to Auscultation and Non Labored Respirations; Negative Accessory Resp Muscle Use
Cardiac: Regular Rhythm and S1/S2; Negative Murmur, Rub or Gallop
GI: Soft, Nontender, Nondistended and Normal Bowel Sounds
Musculoskeletal: No Clubbing, No Cyanosis and No Edema
Skin: Warm and Dry; Negative Rash
Neuro: AO x 3, Tremors (Intention) and Nonfocal/Grossly Intact
Psych: Calm
Data Reviewed
-
Labs: Labs Reviewed by me and Discussed with Patient
[2024-12-08] MEDS: DIOVAN 20 MG PO (20:08)
[2024-12-08] MEDS: NON-FORMULARY ITEM 12.5 MG PO (20:21)
[2024-12-09] VITALS (16 sets, daily range): BP systolic 77–129; BP diastolic 36–115
[2024-12-09] MEDS: AMPICILLIN 108 MG IV ×5 (03:39→20:44)
[2024-12-09 03:40] LABS: Hematocrit 35.4 % (39.0-52.0); Hemoglobin 12.5 g/dL (13.0-18.0); Mean Corp Hgb Conc. 35.3 g/dL (33.0-37.0); Mean Corpuscular Hgb 32.6 pg (27.0-31.0); Mean Corpuscular Volume 92.4 fL (80.0-94.0); Mean Platelet Volume 9.7 fL (7.4-10.4); Platelet Count 180 10^3/uL (130-400); Red Blood Cell Count 3.83 10^6/uL (4.70-6.10); Red Cell Dist. Width 14.5 % (11.5-14.5); White Blood Cell Count 6.7 10^3/uL (4.8-10.8)
[2024-12-09 04:08] LABS: ALT (SGPT) 24 U/L (0-50); AST (SGOT) 29 U/L (17-59); Albumin 3.2 g/dl (3.5-5.0); Alkaline Phosphatase 71 U/L (38-126); Blood Urea Nitrogen 19 mg/dl (9-20); Calcium 8.5 mg/dl (8.4-10.2); Carbon Dioxide 24 mmol/L (22-30); Chloride 104 mmol/L (98-107); Estimated Creatinine Clearance 53 ml/min; Glucose 90 mg/dl (70-99); Magnesium 1.9 mg/dl (1.6-2.3); Sodium 132 mmol/L (135-145); Total Bilirubin 0.8 mg/dl (0.2-1.3); Total Protein 5.8 g/dl (6.3-8.2); eGFR > 60.00
[2024-12-09 04:12] LABS: Potassium 4.2 mmol/L (3.5-5.1)
--- NOTE | 2024-12-09 04:56 | PTCARENOTE ---
received pt at change of shift. AAOx3. Left arm IV infiltrated. VAT notified. New peripheral IV site in right FA placed. Pt offers no complaints at this time. Assessment and VS as documented.
[2024-12-09] MEDS: NON-FORMULARY ITEM 1 INH INH (08:08)
[2024-12-09] MEDS: DIOVAN 20 MG PO ×2 (08:58→20:45)
[2024-12-09] MEDS: COLACE 100 MG PO ×2 (08:58→20:48)
[2024-12-09] MEDS: MIRALAX 17 GRAMS PO (08:58)
[2024-12-09] MEDS: XARELTO 20 MG PO (08:58)
[2024-12-09] MEDS: MUCINEX 1200 MG PO ×2 (09:01→20:49)
[2024-12-09] MEDS: LASIX 40 MG PO (09:01)
[2024-12-09] MEDS: SINGULAIR 10 MG PO (09:01)
[2024-12-09] MEDS: NON-FORMULARY ITEM 1 DROP RIGHT EYE ×6 (09:02→20:50)
[2024-12-09] MEDS: STERILE WATER FOR INJECTION 20 ML IV (12:28)
[2024-12-09] MEDS: ROCEPHIN 2000 MG IV (12:28)
--- NOTE | 2024-12-09 12:48 | W.PN.CARDCBS ---
Today's Communication / Plan
-
Add valsartan as blood pressure tolerates
Will arrange for RATNA to evaluate for endocarditis
Impression / Plan
-
Primary crew clerk: Dc Paz at [facility] ([phone])
PCP: Eric Etienne at [facility]
Impression:
Fever-Enterococcus faecalis bacteremia (one set 12/06)
Recent admission for multifocal RUL/RML PNA
Biventricular dysfunction with HFrEF, RV failure, severe TR, severe pulmonary HTN
Intermittent shivering x 'many years'
Coronary artery disease status post CABG x 2 2012 with patent grafts by [facility] 09/28/24 at OSH
Mitral valve disease status post mitral valve ring annuloplasty 2012
Atrial fibrillation/atrial flutter
Xarelto OAC as oupatient
HLD on Repatha
COPD on nocturnal oxygen
Severe apical BL emphysema on CT
Recurrent cataract extraction. 7 eye surgeries in the last 3 years. Corneal transplant twice
Previous cardiovascular testing:
Echo 08/21/2024: EF 33% (previously EF 50 to 60%), grade 2 diastolic dysfunction, mild AI, moderate MR, RVSP 52 mmHg
RATNA 09/29/2024 (at [facility]): LVEF 20 to 25%, RV moderately severely dilated, moderate to severe early decreased RV systolic function, biatrial mild dilatation, number 30 mm Jesu�Cody physio mitral valve annuloplasty ring
well-seated, moderate MR, mild AI, moderate TR, aorta 3.7 cm at sinus of Valsalva ascending aorta 3.5 cm, PFO with [id number] shunting
Cardiac catheterization 09/28/2024 at [facility]:
RA 16, PA 52/20, PCWP 21, V wave 23, CO/CI 2.58/1.4
CASTRO to distal LAD widely patent, SVG to distal RCA widely patent
[place] coronary arteries: LAD 100% mid vessel occlusion, left circumflex 50 to 60% mid vessel stenosis, RCA 100% proximal occlusion
Outpatient FLP 10/04/2024: LDL 49, HDL 28, TG 60, total cholesterol 91
proBNP 09/29/2024: 8593
proBNP 10/04/2024: 5390
Plan:
-Medically complex 79-year-old gentleman followed by outside crew clerk with recent hospitalization for multifocal pneumonia and underlying COPD as well as significant cardiac history now with hypotension and concern for shock. ID following.
treating for enterococcal bacteremia.
-proBNP on admission was 8890 and was diuresed this admission. EF was improved this admission at 40% compared to prior from OSH at 33%.
-s/p RHC 12/07 with NL PCWP of 10 mmHg. Cont po lasix 40mg daily.
-CI was 1.8 on dobut @2. Dobutamine weaned off 12/08 and patient is warm and well-perfused today on exam.
-Add ARB with plan to transition to Entresto as BP will tolerate given elevated SVR
-Remains in rate controlled afib with PVCs on review of tele overnight. noted history of paroxysmal afib. xarelto resumed 12/08.
-Trop 0.114 and trending down. cath 09/28/24 with widely patent bypass grafts
-LDL 49 10/04/2024; Patient takes Repatha as an outpatient
-Wears a Lifevest as OP, continue per his OP crew clerk
-d/w patient's daughter over speaker phone
Progress Note - Relief Worker
Subjective
Date of Service: December 09, 2024
No acute overnight events. Patient's resting comfortably in the IMU. No cardiac complaints.
Objective
Labs:
12/09/24 03:26
12/09/24 03:26
Labs
Hgb 12.5 g/dL (13.0-18.0) L 12/09/24 03:26
Hct 35.4 % (39.0-52.0) L 12/09/24 03:26
Plt Count 180 10^3/uL (130-400) 12/09/24 03:26
Sodium 132 mmol/L (135-145) L 12/09/24 03:26
Potassium 4.2 mmol/L (3.5-5.1) 12/09/24 03:26
BUN 19 mg/dl (9-20) 12/09/24 03:26
Creatinine 1.0 mg/dL (0.7-1.3) 12/09/24 03:26
Glucose 90 mg/dl (70-99) 12/09/24 03:26
Vital Signs and I&O:
Vital Signs
Temp Pulse Resp BP Pulse Ox
97.4 F 86 14 111/68 95
12/09/24 11:11 12/09/24 09:01 12/09/24 08:11 12/09/24 09:01 12/09/24 09:32
Vital Signs
Temp Pulse Resp BP Pulse Ox
97.4 F 86 14 95
12/09/24 11:11 12/09/24 09:01 12/09/24 08:11 12/09/24 09:01 12/09/24 09:32
Intake & Output
12/07/24 12/08/24 12/09/24 12/10/24
06:59 06:59 06:59 06:59
Intake Total 1180 / 1180 240 / 240 730 / 730
Output Total 960 / 960 675 / 675 1650 / 1650 100 / 100
Balance 220 / 220 -435 / -435 -920 / -920 -100 / -100
Physical Exam
Physical Exam
Gen: NAD, AAOx3
HEENT: NC/AT, sclera anicteric
Neck: No JVD
CV: Irregularly irregular, NL s1/s2
Lungs: CTAB
Abd: S/ND
Ext: No LE edema, warm and well-perfused
Skin: Warm, dry
Neuro: Non-focal
--- NOTE | 2024-12-09 13:30 | W.PN.ID1 ---
Date of Service
Date of Service: December 09, 2024
Today's Communication
RATNA tomorrow.
Continue abx's.
Assessment / Plan
# Enterococcus faecalis bacteremia (3 sets )
# Fever resolved
# Recent RUL/RML PNA
# COPD
# CAD, HFrEF, Afib, MV repair with annuloplasty ring
# Cardiogenic hypotension off dobutamine
-12/05 UA neg
- 12/06 bcx / set, 12/07 2 sets: + E. faecalis
- Follow blood cx's until clear x 2 sets
- CT a/p with po and IV contrast - > no GI source.
- Pt up to date with colonoscopy within 10 years.
-Appreciate cardiology. RATNA tomorrow for IE especially in setting h/o MV repair with annuloplasty ring.
- Continue Ampicillin 2g IV q4H plus ceftriaxone [id number] (d3)
- Anticipate IV antibiotics x 6 weeks from neg blood cx's.
- Eventual double-lumen PICC when blood cx's clear.
A#dditional Past Medical History:
COPD
Afib
Cardiomyopathy requiring lifevest
CAD s/p CABG x 2
Mitral valve annuloplasty ring
HTN
Blind
hx cornea transplant
Chief Complaint
-: Fever and Bacteremia
Subjective / Review of Systems
Overall feeling better. No specific complaints.
Vital Signs / Physical Exam
Vital Signs
Vital Signs
Temp Pulse Resp BP Pulse Ox
97.4 F 86 14 111/68 95
12/09/24 11:11 12/09/24 09:01 12/09/24 08:11 12/09/24 09:01 12/09/24 09:32
Physical Exam
Constitutional: No Acute Distress
Eyes: No Conjunctival Hemorrhage and Sclera Anicteric
Cardiovascular: Regular Rate and S1/S2
Pulmonary: Clear
Gastrointestinal: Soft, Non Tender, Non Distended and Normal Bowel Sounds
Genito-Urinary: Negative CVA Tenderness
Extremities: Negative Splinter Hemorrhage or [place] Lesions
Musculoskeletal: Negative Spinal Tenderness
Neurological: AO x 3
Objective Data
Lab Data
Lab Results
12/09/24 03:26
12/09/24 03:26
Estimated Creat Clear 53 ml/min 12/09/24 03:26
Lactic Acid 1.5 mmol/L (0.7-2.0) 12/05/24 14:30
Total Bilirubin 0.8 mg/dl (0.2-1.3) 12/09/24 03:26
AST 29 U/L (17-59) 12/09/24 03:26
ALT 24 U/L (0-50) 12/09/24 03:26
Alkaline Phosphatase 71 U/L (38-126) 12/09/24 03:26
Most recent labs reviewed.
Micro Results:
12/07/24 10:54 Blood Culture - Preliminary
Blood/Venous Enterococcus faecalis
Gram Stain - Preliminary
12/07/24 09:55 Blood Culture - Preliminary
Blood/Venous Enterococcus faecalis
Gram Stain - Preliminary
12/06/24 14:34 Blood Culture - Preliminary
Blood/Venous Enterococcus faecalis
Gram Stain - Preliminary
12/08/24 11:23 Blood Culture - Preliminary
Blood/Venous No Growth in 24 hours- Final report to follow
12/09/24 03:26 Blood Culture - Pending
Blood/Venous
12/08/24 14:36 Blood Culture - Pending
Blood/Venous
12/06/24 13:46 Influenza Types A & B ([place]) - Final
Nasal Swab Negative for Influenza A & B, NAAT
Negative results must be combined with clinical observations
and patient history.
Nucleic Acid Amplification test (NAAT)performed on the
[employer] ID NOW platform.
12/05/24 15:31 Legionella Urinary Antigen - Final
Urine Negative for Legionella pneumophila Serogroup 1 antigen.
A negative result does not rule out the possiblity of
Legionella infection due to other serogroups or species of
Legionella. Clinical correlation is recommended.
Streptococcus pneumoniae Antigen (M - Final
Negative for Streptococcus pneumoniae antigen.
A negative result does not exclude infection with
Streptococcus pneumoniae. Clinical correlation is
recommended.
12/05/24 CT chest: Severe apical predominant emphysematous changes which are similar in appearance to prior. There are decreased size of the opacities within the lateral right upper lobe and right middle lobe which are favored to represent improving
pneumonia. Additionally there is decreased size of the right hilar lymph node which is likely reactive.
12/04/24 CXR: No acute cardiopulmonary process within the limitations as described.
--- NOTE | 2024-12-09 14:24 | W.PN.HOSP.TC ---
Today's Communication/Plan
-
repeat blood cultures
RATNA tomorrow
abx
ARB, BB, po lasix
Assessment / Plan
Assessment / Plan
#Circulatory shock - Likely multifactorial with sepsis and cardiogenic state (?). Blood cultures positive with Enterococcus faecalis, unclear source, concern for possible endocarditis with history of MV annuloplasty. Does not have classic features
of septic shock. on dobutamine drip and midodrine. IV cefepime and doxycycline have been transitioned to IV ceftriaxone and ampicillin by ID. Follow-up repeat blood cultures, RATNA tomorrow. Monitor vitals off hemodynamic support.
#Enterococcus faecalis bacteremia
� RATNA, discussed with cardiology�plan for tomorrow
� CT abdomen pelvis with p.o. and IV contrast�no GI source noted
� Patient up-to-date with colonoscopy
� Continue IV antibiotics
�follow-up blood cultures until 2 sets are clear
#Acute on chronic heart failure reduced EF - echocardiogram done December 04 shows LVEF 40 to 45%, hypokinesis most notable in the apical and septal segments, mitral valve repair with anoplasty ring, mild to moderate MR. Mild AR. Dilated and
hypokinetic RV, markedly dilated RA, severe TR. Pulmonary hypertension with PA systolic pressure 60 to 65 mmHg. Home GDMT held due to circulatory shock. P.o. Lasix. Cardiology following. Planning for RHC 12/07 -normal pulmonary capillary wedge
and mildly elevated PVR; Add ARB; BB
#Hyponatremia -likely from IV diuresis, has been stable with sodium near 130-135 range. Monitor for now.
#Troponin elevation -no chest pain. Suspect acute nonischemic myocardial injury due to acute illness. Troponin trending down. Cardiology consulted.
#Prerenal azotemia/RHINA -BUN 38, creatinine 1.3. Previous creatinine 0.8. Differential diagnosis of volume depletion versus cardiorenal syndrome versus other. BUN and creatinine improving with diuresis.
#Chronic atrial fibrillation -on Xarelto.
#COPD without exacerbation
#Blindness -with recent corneal transplant.
Home Xarelto
Full code -confirmed with patient.
Total time spent on today's encounter was 51 minutes which included time spent in counseling the patient/family regarding diagnosis and treatment plan as listed above, goals of care, and symptom management. Case was discussed with nursing staff,
specialists, and care coordinators/case management. All labs and imaging personally reviewed by me. Remainder the time spent in detailed review of previous records, lab data, imaging, and other medical provider documentation.
Anticipated Discharge: > 48 hours
Subjective/Interval History
-
Date of Service: December 09, 2024
No acute events, sitting in bed resting comfortably
Objective Data
-
Labs:
Laboratory Results
12/09/24
03:26
WBC 6.7
Hgb 12.5 L
Hct 35.4 L
Plt Count 180
Sodium 132 L
Potassium 4.2
Chloride 104
Carbon Dioxide 24
BUN 19
Creatinine 1.0
Glucose 90
Calcium 8.5
Total Bilirubin 0.8
AST 29
ALT 24
Alkaline Phosphatase 71
Vital Signs:
Vital Signs
Temp Pulse Resp BP Pulse Ox
97.4 F 86 14 111/68 95
12/09/24 11:11 12/09/24 09:01 12/09/24 08:11 12/09/24 09:01 12/09/24 09:32
I&O
12/08/24 12/09/24 12/10/24
06:59 06:59 06:59
Intake Total 240 / 240 730 / 730
Output Total 675 / 675 1650 / 1650 100 / 100
Balance -435 / -435 -920 / -920 -100 / -100
Review of Systems
-
History Source: Patient
All other systems: Not reviewed unless documented
Physical Exam
-
General: Well Developed, No Apparent Distress, Comfortable and Other (Frail-appearing)
HEENT: Normocephalic, Atraumatic, Moist Mucous Membranes and Anicteric
Respiratory: Clear to Auscultation and Non Labored Respirations; Negative Accessory Resp Muscle Use
Cardiac: Regular Rhythm and S1/S2; Negative Murmur, Rub or Gallop
GI: Soft, Nontender, Nondistended and Normal Bowel Sounds
Musculoskeletal: No Clubbing, No Cyanosis and No Edema
Skin: Warm and Dry; Negative Rash
Neuro: AO x 3, Tremors (Intention) and Nonfocal/Grossly Intact
Psych: Calm
Data Reviewed
-
Labs: Labs Reviewed by me and Discussed with Patient
--- NOTE | 2024-12-09 16:10 | CM ---
Patient with Hx blindness with Dx HF. Room air. Receiving IV Abx. PT recommends HH.
Received script for home IV ceftriaxone Q12 and Ampicillin Q4h or continuous infusion.
Met with patient and spoke with daughter Owen by phone;
the patient will be going home to daughter's house in [place] and Owen confirms she will learn to do IV Abx administration. Due to her work schedule she needs Ampicillin to be continuous infusion. Daughter confirms that they wish [facility] to
resume for SN & PT.
Referral phoned and faxed (ActiveFax) to Nell at [facility].
Phone message left for Tina at [facility] re; IV Abx & infusion needs.
Message to Dr Ramírez; patient will need PICC placed. May be ready for d/c 1-2 days.
Plan follow up with [facility] and [facility] about home IV Abx.
--- NOTE | 2024-12-09 16:30 | PTCARENOTE ---
Rec'd pt this AM. Pt is legally blind. responds well to calm tone of voice. OOB to bathroom with min assist. PT walked in hallway successfully.
[2024-12-09] MEDS: NON-FORMULARY ITEM 12.5 MG PO (21:33)
[2024-12-10] VITALS (13 sets, daily range): BP systolic 89–143; BP diastolic 46–98; BMI 21.1
[2024-12-10] MEDS: ROCEPHIN 2000 MG IV ×2 (00:44→12:42)
[2024-12-10] MEDS: AMPICILLIN 108 MG IV ×6 (00:44→20:11)
[2024-12-10] MEDS: STERILE WATER FOR INJECTION 20 ML IV ×2 (00:44→12:41)
--- NOTE | 2024-12-10 04:35 | PTCARENOTE ---
No acute changes overnight. Afib on telemetry. RA. Denies any pain. Tolerating IV Abx. Afebrile. Pt sitting at edge of bed/standing independently to void. No gi/gu complaints. swallowing pills w/ water w/o issues. NPO for RATNA/CV today.
call patel and tray table within reach.
[2024-12-10 06:32] LABS: Hematocrit 37.3 % (39.0-52.0); Hemoglobin 12.6 g/dL (13.0-18.0); Mean Corp Hgb Conc. 33.8 g/dL (33.0-37.0); Mean Corpuscular Hgb 31.7 pg (27.0-31.0); Mean Corpuscular Volume 93.7 fL (80.0-94.0); Mean Platelet Volume 9.7 fL (7.4-10.4); Platelet Count 224 10^3/uL (130-400); Red Blood Cell Count 3.98 10^6/uL (4.70-6.10); Red Cell Dist. Width 14.6 % (11.5-14.5); White Blood Cell Count 5.8 10^3/uL (4.8-10.8)
[2024-12-10 06:49] LABS: ALT (SGPT) 23 U/L (0-50); AST (SGOT) 26 U/L (17-59); Albumin 3.2 g/dl (3.5-5.0); Alkaline Phosphatase 69 U/L (38-126); Blood Urea Nitrogen 18 mg/dl (9-20); Calcium 8.9 mg/dl (8.4-10.2); Carbon Dioxide 24 mmol/L (22-30); Chloride 106 mmol/L (98-107); Estimated Creatinine Clearance 55 ml/min; Glucose 88 mg/dl (70-99); Potassium 4.1 mmol/L (3.5-5.1); Sodium 136 mmol/L (135-145); Total Bilirubin 0.7 mg/dl (0.2-1.3); Total Protein 6.1 g/dl (6.3-8.2); eGFR > 60.00
[2024-12-10] MEDS: NON-FORMULARY ITEM 1 INH INH (08:09)
[2024-12-10] MEDS: DIOVAN 20 MG PO ×2 (08:37→20:46)
[2024-12-10] MEDS: MUCINEX 1200 MG PO ×2 (08:38→20:46)
[2024-12-10] MEDS: SINGULAIR 10 MG PO (08:38)
[2024-12-10] MEDS: XARELTO 20 MG PO (08:38)
[2024-12-10] MEDS: LASIX 40 MG PO (08:38)
[2024-12-10] MEDS: COLACE 100 MG PO (08:39)
[2024-12-10] MEDS: NON-FORMULARY ITEM 1 DROP RIGHT EYE ×5 (08:40→20:49)
[2024-12-10] MEDS: MIRALAX PO (08:41)
--- NOTE | 2024-12-10 10:10 | CM ---
Received call from patient's daughter Owen who stated that she is anxious as she works all day and will not be able to administer the IV ABX Q4. She denied that there is anyone else who can do this for him and as he is visually impaired, he will not
be able to self administer. Patient's daughter was made aware that this message will be relayed to the ID MD in the event that there are changes that can be made so that patient can successfully navigate his treatment. Patient's daughter requested
skilled care, however patient is very close to baseline level of functioning so the IV ABX would be the only christy. Daughter agreeable to this message being relayed to the medical staff.
Plan: Case management will continue to follow and assist with discharge planning. Home with IV ABX.
[2024-12-10] MEDS: OCUFLOX RIGHT EYE (11:11)
--- NOTE | 2024-12-10 12:55 | PTCARENOTE ---
Pt returned from RATNA and has been brody. Drowsy, sleeping on and off. remains a fib. lowest HR very briefly 39, mostly in 40s to 50s when asleep and 60s when awake and at rest. Updated cardiology and Dr. Ramírez.
--- NOTE | 2024-12-10 14:17 | W.PN.HOSP.TC ---
Today's Communication/Plan
-
iv abx
f/u final cultures
monitor vitals s/p RATNA -most likely sedation related
Assessment / Plan
Assessment / Plan
#Septic Shock, resolved
Blood cultures positive with Enterococcus faecalis, unclear source, concern for possible endocarditis with history of MV annuloplasty.
-off dobutamine and midodrine
on dobutamine drip and midodrine. IV cefepime and doxycycline have been transitioned to IV ceftriaxone and ampicillin by ID. Follow-up repeat blood cultures, RATNA with vegetation, see plan below. Monitor vitals off hemodynamic support.
#
#Endocarditis
#Enterococcus faecalis bacteremia
� ARTNA -evidence of mitral valve vegetation
� CT abdomen pelvis with p.o. and IV contrast�no GI source noted
� Patient up-to-date with colonoscopy
� Continue IV antibiotics, anticipate 6 weeks of antibiotics
�follow-up blood cultures until 2 sets are clear
#Acute on chronic heart failure reduced EF - echocardiogram done December 04 shows LVEF 40 to 45%, hypokinesis most notable in the apical and septal segments, mitral valve repair with anoplasty ring, mild to moderate MR. Mild AR. Dilated and
hypokinetic RV, markedly dilated RA, severe TR. Pulmonary hypertension with PA systolic pressure 60 to 65 mmHg.. P.o. Lasix. Cardiology following. Planning for RHC 12/07 -normal pulmonary capillary wedge and mildly elevated PVR; Add ARB; BB
#Hyponatremia -improved
#Troponin elevation -no chest pain. Suspect acute nonischemic myocardial injury due to acute illness. Troponin trending down. cath 09/28/24 with widely patent bypass grafts
#Prerenal azotemia/RHINA -BUN 38, creatinine 1.3. Previous creatinine 0.8. Differential diagnosis of volume depletion versus cardiorenal syndrome versus other. BUN and creatinine improving with diuresis.
#Chronic atrial fibrillation -on Xarelto.
#COPD without exacerbation
#Blindness -with recent corneal transplant.
Home Xarelto
Full code -confirmed with patient.
Total time spent on today's encounter was 54 minutes which included time spent in counseling the patient/family regarding diagnosis and treatment plan as listed above, goals of care, and symptom management. Case was discussed with nursing staff,
specialists, and care coordinators/case management. All labs and imaging personally reviewed by me. Remainder the time spent in detailed review of previous records, lab data, imaging, and other medical provider documentation.
Anticipated Discharge: Within 24 hours
Subjective/Interval History
-
Date of Service: December 10, 2024
For RATNA today, bradycardic thereafter. Evidence of vegetation on mitral valve
Objective Data
-
Labs:
Laboratory Results
12/10/24
06:01
WBC 5.8
Hgb 12.6 L
Hct 37.3 L
Plt Count 224 D
Sodium 136
Potassium 4.1
Chloride 106
Carbon Dioxide 24
BUN 18
Creatinine 1.0
Glucose 88
Calcium 8.9
Total Bilirubin 0.7
AST 26
ALT 23
Alkaline Phosphatase 69
Vital Signs:
Vital Signs
Temp Pulse Resp BP Pulse Ox
97.6 F 69 23 118/64 93
12/10/24 12:22 12/10/24 10:00 12/10/24 10:00 12/10/24 10:00 12/10/24 08:17
I&O
12/09/24 12/10/24 12/11/24
06:59 06:59 06:59
Intake Total 730 / 730 324 / 324
Output Total 1650 / 1650 1700 / 1700 750 / 750
Balance -920 / -920 -1376 / -1376 -750 / -750
Review of Systems
-
History Source: Patient
All other systems: Not reviewed unless documented
Physical Exam
-
General: Well Developed, No Apparent Distress, Comfortable and Other (Frail-appearing)
HEENT: Normocephalic, Atraumatic, Moist Mucous Membranes and Anicteric
Respiratory: Clear to Auscultation and Non Labored Respirations; Negative Accessory Resp Muscle Use
Cardiac: Regular Rhythm and S1/S2; Negative Murmur, Rub or Gallop
GI: Soft, Nontender, Nondistended and Normal Bowel Sounds
Musculoskeletal: No Clubbing, No Cyanosis and No Edema
Skin: Warm and Dry; Negative Rash
Neuro: AO x 3, Tremors (Intention) and Nonfocal/Grossly Intact
Psych: Calm
Data Reviewed
-
Labs: Labs Reviewed by me and Discussed with Patient
--- NOTE | 2024-12-10 14:22 | W.PN.ID1 ---
Date of Service
Date of Service: December 10, 2024
Today's Communication
Continue current antibiotics.
Assessment / Plan
# Enterococcus faecalis bacteremia (3 sets )
# Fever; resolved
# Recent RUL/RML PNA
# COPD
# CAD, HFrEF, Afib, MV repair with annuloplasty ring
# Cardiogenic hypotension off dobutamine
-12/05 UA neg
- 12/06 bcx 1/ set, 12/07 2 sets: + E. faecalis
- Follow blood cx's until clear x 2 sets
- CT a/p with po and IV contrast - > no GI source.
- Pt up to date with colonoscopy within 10 years.
- Appreciate cardiology. RATNA with mitral valve vegetation
- Continue Ampicillin 2g IV q4H plus ceftriaxone [id number] (d#4)
- Anticipate IV antibiotics x 6 weeks from neg blood cx's.
- Eventual double-lumen PICC when blood cx's clear.
Additional Past Medical History:
COPD
Afib
Cardiomyopathy requiring lifevest
CAD s/p CABG x 2
Mitral valve annuloplasty ring
HTN
Blind
hx cornea transplant
Chief Complaint
-: Fever and Bacteremia
Subjective / Review of Systems
Patient seen and examined.
Review of Systems: No Fever and No Chills
Vital Signs / Physical Exam
Vital Signs
Vital Signs
Temp Pulse Resp BP Pulse Ox
97.6 F 69 23 118/64 93
12/10/24 12:22 12/10/24 10:00 12/10/24 10:00 12/10/24 10:00 12/10/24 08:17
Physical Exam
Constitutional: No Acute Distress
Eyes: No Conjunctival Hemorrhage and Sclera Anicteric
Cardiovascular: Regular Rate and S1/S2
Pulmonary: Clear
Gastrointestinal: Soft, Non Tender, Non Distended and Normal Bowel Sounds
Genito-Urinary: Negative CVA Tenderness
Extremities: Negative Splinter Hemorrhage or Janeway Lesions
Musculoskeletal: Negative Spinal Tenderness
Neurological: AO x 3
Objective Data
Lab Data
Lab Results
12/10/24 06:01
12/10/24 06:01
Estimated Creat Clear 55 ml/min 12/10/24 06:01
Lactic Acid 1.5 mmol/L (0.7-2.0) 12/05/24 14:30
Total Bilirubin 0.7 mg/dl (0.2-1.3) 12/10/24 06:01
AST 26 U/L (17-59) 12/10/24 06:01
ALT 23 U/L (0-50) 12/10/24 06:01
Alkaline Phosphatase 69 U/L (38-126) 12/10/24 06:01
Most recent labs reviewed.
Micro Results:
12/10/24 06:33 Respiratory Culture - Pending
Sputum Gram Stain - Preliminary
12/08/24 11:23 Blood Culture - Preliminary
Blood/Venous No Growth in 48 hours- Final report to follow
12/09/24 03:26 Blood Culture - Preliminary
Blood/Venous No Growth in 24 hours- Final report to follow
12/08/24 14:36 Blood Culture - Preliminary
Blood/Venous No Growth in 24 hours- Final report to follow
12/07/24 10:54 Blood Culture - Preliminary
Blood/Venous Enterococcus faecalis
Gram Stain - Preliminary
12/07/24 09:55 Blood Culture - Preliminary
Blood/Venous Enterococcus faecalis
Gram Stain - Preliminary
12/06/24 14:34 Blood Culture - Preliminary
Blood/Venous Enterococcus faecalis
Gram Stain - Preliminary
12/06/24 13:46 Influenza Types A & B ([place]) - Final
Nasal Swab Negative for Influenza A & B, NAAT
Negative results must be combined with clinical observations
and patient history.
Nucleic Acid Amplification test (NAAT)performed on the
[employer] ([employer] platform.
12/05/24 15:31 Legionella Urinary Antigen - Final
Urine Negative for Legionella pneumophila Serogroup 1 antigen.
A negative result does not rule out the possiblity of
Legionella infection due to other serogroups or species of
Legionella. Clinical correlation is recommended.
Streptococcus pneumoniae Antigen (M - Final
Negative for Streptococcus pneumoniae antigen.
A negative result does not exclude infection with
Streptococcus pneumoniae. Clinical correlation is
recommended.
Imaging:
12/05/24 CT chest: Severe apical predominant emphysematous changes which are similar in appearance to prior. There are decreased size of the opacities within the lateral right upper lobe and right middle lobe which are favored to represent improving
pneumonia. Additionally there is decreased size of the right hilar lymph node which is likely reactive.
12/04/24 CXR: No acute cardiopulmonary process within the limitations as described.
Echocardiography:
12/10/2024 RATNA: Full report pending. Preliminary results suggestive of mitral valve vegetation
12/04/2024 TTE: EF approximately 40%. Septal straightening consistent with RV pressure or volume overload. Status post mitral valve repair. Mild to moderate mitral regurgitation and thickened mitral leaflets noted.
--- NOTE | 2024-12-10 18:08 | W.PN.CARDCBS ---
Today's Communication / Plan
-
Continue BB and ARB as BP tolerates
Appreciate ID input regarding mitral valve vegetation
Impression / Plan
-
Primary college athletic director: Dc Paz at [facility] ([phone])
PCP: Eric Etienne at [facility]
Impression:
Fever-Enterococcus faecalis bacteremia (one set 12/06)
Recent admission for multifocal RUL/RML PNA
Biventricular dysfunction with HFrEF, RV failure, severe TR, severe pulmonary HTN
Intermittent shivering x 'many years'
Coronary artery disease status post CABG x 2 2012 with patent grafts by [facility] 09/28/24 at OSH
Mitral valve disease status post mitral valve ring annuloplasty 2012
Atrial fibrillation/atrial flutter
Xarelto OAC as oupatient
HLD on Repatha
COPD on nocturnal oxygen
Severe apical BL emphysema on CT
Recurrent cataract extraction. 7 eye surgeries in the last 3 years. Corneal transplant twice
Previous cardiovascular testing:
Echo 08/21/2024: EF 33% (previously EF 50 to 60%), grade 2 diastolic dysfunction, mild AI, moderate MR, RVSP 52 mmHg
RATNA 09/29/2024 (at [facility]): LVEF 20 to 25%, RV moderately severely dilated, moderate to severe early decreased RV systolic function, biatrial mild dilatation, number 30 mm Jesu�Cody physio mitral valve annuloplasty ring
well-seated, moderate MR, mild AI, moderate TR, aorta 3.7 cm at sinus of Valsalva ascending aorta 3.5 cm, PFO with [id number] shunting
Cardiac catheterization 09/28/2024 at [facility]:
RA 16, PA 52/20, PCWP 21, V wave 23, CO/CI 2.58/1.4
CASTRO to distal LAD widely patent, SVG to distal RCA widely patent
[place] coronary arteries: LAD 100% mid vessel occlusion, left circumflex 50 to 60% mid vessel stenosis, RCA 100% proximal occlusion
Outpatient FLP 10/04/2024: LDL 49, HDL 28, TG 60, total cholesterol 91
proBNP 09/29/2024: 8593
proBNP 10/04/2024: 5390
Plan:
-Medically complex 79-year-old gentleman followed by outside college athletic director with recent hospitalization for multifocal pneumonia and underlying COPD as well as significant cardiac history now with hypotension and concern for shock. ID following.
treating for enterococcal bacteremia.
-proBNP on admission was 8890 and was diuresed this admission. EF was improved this admission at 40-45% compared to prior from OSH at 33%.
-s/p RHC 12/07 with NL PCWP of 10 mmHg. Cont po lasix 40mg daily.
-CI was 1.8 on dobut @2. Dobutamine weaned off 12/08 and patient is warm and well-perfused today on exam.
-BB resumed
-Add ARB with plan to transition to Entresto as BP will tolerate given elevated SVR
-Remains in rate controlled atrial flutter
-Xarelto resumed 12/08.
-Trop 0.114 and trending down. cath 09/28/24 with widely patent bypass grafts
-LDL 49 10/04/2024; Patient takes Repatha as an outpatient
-Wears a Lifevest as OP, defer management to his OP college athletic director
-RATNA 12/10/24 with likely mitral valve vegetation. Appreciate ID input.
Progress Note - Disability Manager
Subjective
Date of Service: December 10, 2024
NAOE. No cardiac complaints. RATNA today showing mitral valve vegetation.
Objective
Labs:
12/10/24 06:01
12/10/24 06:01
Labs
Hgb 12.6 g/dL (13.0-18.0) L 12/10/24 06:01
Hct 37.3 % (39.0-52.0) L 12/10/24 06:01
Plt Count 224 10^3/uL (130-400) D 12/10/24 06:01
Sodium 136 mmol/L (135-145) 12/10/24 06:01
Potassium 4.1 mmol/L (3.5-5.1) 12/10/24 06:01
BUN 18 mg/dl (9-20) 12/10/24 06:01
Creatinine 1.0 mg/dL (0.7-1.3) 12/10/24 06:01
Glucose 88 mg/dl (70-99) 12/10/24 06:01
Vital Signs and I&O:
Vital Signs
Temp Pulse Resp BP Pulse Ox
97.8 F 67 17 106/57 96
12/10/24 15:20 12/10/24 14:40 12/10/24 14:40 12/10/24 12:57 12/10/24 12:40
Vital Signs
Temp Pulse Resp BP Pulse Ox
97.8 F 67 17 10657 96
12/10/24 15:20 12/10/24 14:40 12/10/24 14:40 12/10/24 12:57 12/10/24 12:40
Intake & Output
12/08/24 12/09/24 12/10/24 12/11/24
06:59 06:59 06:59 06:59
Intake Total 240 / 240 730 / 730 324 / 324
Output Total 675 / 675 1650 / 1650 1700 / 1700 850 / 850
Balance -435 / -435 -920 / -920 -1376 / -1376 -850 / -850
Physical Exam
Physical Exam
Gen: NAD, AA
HEENT: NC/AT, sclera anicteric
Neck: No JVD
CV: irregular
Lungs: No increase WOB on RA
Abd: S/ND
Ext: No LE edema
Skin: Warm, dry
Neuro: Non-focal
[2024-12-10] MEDS: TOPROL XL PO (20:02)
[2024-12-10] MEDS: COLACE PO (20:46)
[2024-12-10] MEDS: OCUFLOX 1 DROP RIGHT EYE (20:47)
[2024-12-10] MEDS: NON-FORMULARY ITEM 12.5 MG PO (20:48)
[2024-12-11] VITALS (11 sets, daily range): BP systolic 97–133; BP diastolic 41–85; BMI 21.2
[2024-12-11] MEDS: AMPICILLIN 108 MG IV ×6 (00:36→20:54)
[2024-12-11] MEDS: STERILE WATER FOR INJECTION 20 ML IV ×2 (00:36→13:33)
[2024-12-11] MEDS: ROCEPHIN 2000 MG IV ×2 (00:36→13:33)
[2024-12-11 05:07] LABS: Hematocrit 38.4 % (39.0-52.0); Hemoglobin 13.1 g/dL (13.0-18.0); Mean Corp Hgb Conc. 34.1 g/dL (33.0-37.0); Mean Corpuscular Hgb 31.9 pg (27.0-31.0); Mean Corpuscular Volume 93.4 fL (80.0-94.0); Mean Platelet Volume 9.8 fL (7.4-10.4); Platelet Count 244 10^3/uL (130-400); Red Blood Cell Count 4.11 10^6/uL (4.70-6.10); Red Cell Dist. Width 14.6 % (11.5-14.5); White Blood Cell Count 5.8 10^3/uL (4.8-10.8)
[2024-12-11 05:33] LABS: ALT (SGPT) 23 U/L (0-50); AST (SGOT) 26 U/L (17-59); Albumin 3.2 g/dl (3.5-5.0); Alkaline Phosphatase 71 U/L (38-126); Blood Urea Nitrogen 15 mg/dl (9-20); Calcium 8.8 mg/dl (8.4-10.2); Carbon Dioxide 24 mmol/L (22-30); Chloride 109 mmol/L (98-107); Estimated Creatinine Clearance 55 ml/min; Glucose 101 mg/dl (70-99); Potassium 3.9 mmol/L (3.5-5.1); Sodium 137 mmol/L (135-145); Total Bilirubin 0.7 mg/dl (0.2-1.3); Total Protein 5.9 g/dl (6.3-8.2); eGFR > 60.00
--- NOTE | 2024-12-11 06:03 | PTCARENOTE ---
Patient's left forearm more red and swollen this morning. VAT aware and marked the area. Site was old infiltrated IV from few days ago. Warm compress applied. Pt reports tenderness to area. Will pass along to dayshift to report to provider.
Pt offers no other complaints. No gi/gu issues. Turning self in bed. Tolerating IV abx. swallowing w/o isses. Afib HR 40-80s. afebrile. pt is legally blind. Call patel and tray table within reach.
--- NOTE | 2024-12-11 06:30 | VATNOTE ---
PT NOTED TO HAVE A VERY PAINFUL RED AND WARM PHLEBITIC AREA ON LFA AT SITE OF A PREVIOUS IV .AREA MARKED AND MEASURED TO BE 4X6CM. LUE ELEVATED AND WARM COMPRESS APPLIED. PCN TO HAVE PROVIDER EVALUATE ARM TODAY.VAT TO FOLLOW.
[2024-12-11] MEDS: NON-FORMULARY ITEM 1 INH INH (07:45)
[2024-12-11] MEDS: XARELTO 20 MG PO (08:25)
[2024-12-11] MEDS: LASIX 40 MG PO (08:26)
[2024-12-11] MEDS: COLACE 100 MG PO (08:26)
[2024-12-11] MEDS: MUCINEX 1200 MG PO ×2 (08:26→20:55)
[2024-12-11] MEDS: DIOVAN 20 MG PO ×2 (08:26→20:55)
[2024-12-11] MEDS: TOPROL XL 12.5 MG PO (08:26)
[2024-12-11] MEDS: SINGULAIR 10 MG PO (08:26)
[2024-12-11] MEDS: NON-FORMULARY ITEM 1 DROP RIGHT EYE ×4 (08:29→20:57)
[2024-12-11] MEDS: OCUFLOX 1 DROP RIGHT EYE ×2 (08:29→20:50)
[2024-12-11] MEDS: MIRALAX PO (08:29)
--- NOTE | 2024-12-11 09:36 | W.PN.CARDCBS ---
Addendum entered and electronically signed by Guerrero Pena MD 12/17/24 16:53:
Yes, suspect Endocarditis is related to/associated with/due to previous mitral valve repair and was present on admission
Original Note:
Today's Communication / Plan
-
Stable cardiac status, we will sign off, please recall as needed
Impression / Plan
-
Primary drum sander offbearer: Dc Paz at [facility] ([phone])
PCP: Eric Etienne at [facility]
Impression:
Fever-Enterococcus faecalis endocarditis
Recent admission for multifocal RUL/RML PNA
Biventricular dysfunction with HFrEF, RV failure, severe TR, severe pulmonary HTN
Intermittent shivering x 'many years'
Coronary artery disease status post CABG x 2 2012 with patent grafts by [facility] 09/28/24 at OSH
Mitral valve disease status post mitral valve ring annuloplasty 2012
Atrial fibrillation/atrial flutter
Xarelto OAC as oupatient
HLD on Repatha
COPD on nocturnal oxygen
Severe apical BL emphysema on CT
Recurrent cataract extraction. 7 eye surgeries in the last 3 years. Corneal transplant twice
Previous cardiovascular testing:
Echo 08/21/2024: EF 33% (previously EF 50 to 60%), grade 2 diastolic dysfunction, mild AI, moderate MR, RVSP 52 mmHg
RATNA 09/29/2024 (at [facility]): LVEF 20 to 25%, RV moderately severely dilated, moderate to severe early decreased RV systolic function, biatrial mild dilatation, number 30 mm Jesu�Cody physio mitral valve annuloplasty ring
well-seated, moderate MR, mild AI, moderate TR, aorta 3.7 cm at sinus of Valsalva ascending aorta 3.5 cm, PFO with [id number] shunting
Cardiac catheterization 09/28/2024 at [facility]:
RA 16, PA 52/20, PCWP 21, V wave 23, CO/CI 2.58/1.4
CASTRO to distal LAD widely patent, SVG to distal RCA widely patent
[place] coronary arteries: LAD 100% mid vessel occlusion, left circumflex 50 to 60% mid vessel stenosis, RCA 100% proximal occlusion
Outpatient FLP 10/04/2024: LDL 49, HDL 28, TG 60, total cholesterol 91
proBNP 09/29/2024: 8593
proBNP 10/04/2024: 5390
Plan:
-Medically complex 79-year-old gentleman followed by outside drum sander offbearer with recent hospitalization for multifocal pneumonia and underlying COPD as well as significant cardiac history now with hypotension and concern for shock. ID following for
enterococcal endocarditis.
-proBNP on admission was 8890 and was diuresed this admission. EF was improved this admission at 40-45% compared to prior from OSH at 33%.
-s/p RHC 12/07 with NL PCWP of 10 mmHg. Cont po lasix 40mg daily.
-CI was 1.8 on dobut @2. Dobutamine weaned off 12/08 and patient is warm and well-perfused today on exam.
-Continue low dose Toprol XL and valsartan. BP is unlikely to tolerate additional GDMT. Entresto can be resumed as outpatient.
-Remains in rate controlled atrial flutter
-Continue Xarelto and BB
-Trop 0.114 and trending down. cath 09/28/24 with widely patent bypass grafts
-LDL 49 10/04/2024; Patient takes Repatha as an outpatient
-Wears a Lifevest as OP, defer management to his OP drum sander offbearer
-RATNA 12/10/24 with likely mitral valve vegetation. Appreciate ID input.
Stable cardiac status. We will sign off. He should follow-up with his primary drum sander offbearer in November.
Cardiac medication recommendations on discharge:
Xarelto 20mg daily
Toprol XL 12.5 mg daily
Valsartan 20mg BID
Lasix 40mg daily
Repatha 140mg q2wks
Progress Note - Beverage Distiller
Subjective
Date of Service: December 11, 2024
NAOE. No cardiac complaints today.
Objective
Labs:
12/11/24 04:55
12/11/24 04:55
Labs
Hgb 13.1 g/dL (13.0-18.0) 12/11/24 04:55
Hct 38.4 % (39.0-52.0) L 12/11/24 04:55
Plt Count 244 10^3/uL (130-400) 12/11/24 04:55
Sodium 137 mmol/L (135-145) 12/11/24 04:55
Potassium 3.9 mmol/L (3.5-5.1) 12/11/24 04:55
BUN 15 mg/dl (9-20) 12/11/24 04:55
Creatinine 1.0 mg/dL (0.7-1.3) 12/11/24 04:55
Glucose 101 mg/dl (70-99) H 12/11/24 04:55
Vital Signs and I&O:
Vital Signs
Temp Pulse Resp BP Pulse Ox
98.0 F 94 20 111/51 92
12/11/24 03:44 12/11/24 08:00 12/11/24 08:00 12/11/24 04:00 12/11/24 07:46
Vital Signs
Temp Pulse Resp BP Pulse Ox
98.0 F 94 20 111/51 92
12/11/24 03:44 12/11/24 08:00 12/11/24 08:00 12/11/24 04:00 12/11/24 07:46
Intake & Output
12/09/24 12/10/24 12/11/24 12/12/24
06:59 06:59 06:59 06:59
Intake Total 730 / 730 324 / 324 216 / 216
Output Total 1650 / 1650 1700 / 1700 1500 / 1500
Balance -920 / -920 -1376 / -1376 -1284 / -1284
Physical Exam
Physical Exam
Gen: NAD, AAOx3
HEENT: NC/AT, sclera anicteric
Neck: No JVD
CV: Irregular, NL s1/s2, no M/R/G
Lungs: CTAB
Abd: S/ND
Ext: No LE edema
Skin: Warm, dry
Neuro: Non-focal continue
--- NOTE | 2024-12-11 10:04 | VATNOTE ---
Vat rounds: Left arm continues to be red and swollen. Warm compress applied for comfort. Will continue to elevate and continue warm compress. will monitor closely.
--- NOTE | 2024-12-11 10:43 | W.PN.ID1 ---
Date of Service
Date of Service: December 11, 2024
Today's Communication
Continue antibiotics.
Assessment / Plan
# Enterococcus faecalis bacteremia (3 sets )
# Fever; resolved
# Recent RUL/RML PNA
# COPD
# CAD, HFrEF, Afib, MV repair with annuloplasty ring
# Cardiogenic hypotension off dobutamine
-12/05 UA neg
- 12/06 bcx 1/ set, 12/07 2 sets: + E. faecalis
- Follow blood cx's until clear x 2 sets
- CT a/p with po and IV contrast - > no GI source.
- Pt up to date with colonoscopy within 10 years.
- Appreciate cardiology. RATNA with mitral valve vegetation
- Continue Ampicillin 2g IV q4H plus ceftriaxone [id number] (d#4)
- Will switch to ampicillin 12 g/day via continuous infusion at time of discharge.
- Anticipate IV antibiotics x 6 weeks from neg blood cx's.
- Can place double-lumen PICC when blood cx's clear x72h.
- Have placed home infusion sheet on paper chart. Will be following weekly labs.
Additional Past Medical History:
COPD
Afib
Cardiomyopathy requiring lifevest
CAD s/p CABG x 2
Mitral valve annuloplasty ring
HTN
Blind
hx cornea transplant
Chief Complaint
-: Fever, Bacteremia and Other (Mitral valve endocarditis)
Subjective / Review of Systems
Patient seen and examined. Reports no specific complaints today.
Review of Systems: No Fever and No Chills
Vital Signs / Physical Exam
Vital Signs
Vital Signs
Temp Pulse Resp BP Pulse Ox
98.2 F 94 20 111/51 92
12/11/24 07:15 12/11/24 08:00 12/11/24 08:00 12/11/24 04:00 12/11/24 07:46
Physical Exam
Constitutional: No Acute Distress
Eyes: No Conjunctival Hemorrhage and Sclera Anicteric
Cardiovascular: Regular Rate and S1/S2
Pulmonary: Clear
Gastrointestinal: Soft, Non Tender, Non Distended and Normal Bowel Sounds
Genito-Urinary: Negative CVA Tenderness
Extremities: Negative Splinter Hemorrhage or Janeway Lesions
Musculoskeletal: Negative Spinal Tenderness
Neurological: AO x 3
Objective Data
Lab Data
Lab Results
12/11/24 04:55
12/11/24 04:55
Estimated Creat Clear 55 ml/min 12/11/24 04:55
Lactic Acid 1.5 mmol/L (0.7-2.0) 12/05/24 14:30
Total Bilirubin 0.7 mg/dl (0.2-1.3) 12/11/24 04:55
AST 26 U/L (17-59) 12/11/24 04:55
ALT 23 U/L (0-50) 12/11/24 04:55
Alkaline Phosphatase 71 U/L (38-126) 12/11/24 04:55
Most recent labs reviewed.
Micro Results:
12/10/24 06:33 Respiratory Culture - Preliminary
Sputum Gram Stain - Preliminary
12/09/24 03:26 Blood Culture - Preliminary
Blood/Venous No Growth in 48 hours- Final report to follow
12/08/24 14:36 Blood Culture - Preliminary
Blood/Venous No Growth in 48 hours- Final report to follow
12/08/24 11:23 Blood Culture - Preliminary
Blood/Venous No Growth in 48 hours- Final report to follow
12/07/24 10:54 Blood Culture - Preliminary
Blood/Venous Enterococcus faecalis
Gram Stain - Preliminary
12/07/24 09:55 Blood Culture - Preliminary
Blood/Venous Enterococcus faecalis
Gram Stain - Preliminary
12/06/24 14:34 Blood Culture - Preliminary
Blood/Venous Enterococcus faecalis
Gram Stain - Preliminary
12/06/24 13:46 Influenza Types A & B ([place]) - Final
Nasal Swab Negative for Influenza A & B, NAAT
Negative results must be combined with clinical observations
and patient history.
Nucleic Acid Amplification test (NAAT)performed on the
[employer] platform.
12/05/24 15:31 Legionella Urinary Antigen - Final
Urine Negative for Legionella pneumophila Serogroup 1 antigen.
A negative result does not rule out the possiblity of
Legionella infection due to other serogroups or species of
Legionella. Clinical correlation is recommended.
Streptococcus pneumoniae Antigen (M - Final
Negative for Streptococcus pneumoniae antigen.
A negative result does not exclude infection with
Streptococcus pneumoniae. Clinical correlation is
recommended.
Imaging:
12/05/24 CT chest: Severe apical predominant emphysematous changes which are similar in appearance to prior. There are decreased size of the opacities within the lateral right upper lobe and right middle lobe which are favored to represent improving
pneumonia. Additionally there is decreased size of the right hilar lymph node which is likely reactive.
12/04/24 CXR: No acute cardiopulmonary process within the limitations as described.
Echocardiography:
12/10/2024 RATNA: Normal LV size and wall thickness. EF approximately 40%. Well-seated mitral annuloplasty ring. Echodensity measuring 1.0 x 0.8 cm attached to the anterior mitral leaflet concerning for vegetation.
12/04/2024 TTE: EF approximately 40%. Septal straightening consistent with RV pressure or volume overload. Status post mitral valve repair. Mild to moderate mitral regurgitation and thickened mitral leaflets noted.
--- NOTE | 2024-12-11 13:08 | W.PN.HOSP.TC ---
Today's Communication/Plan
-
await 72 hours for cultures to be negative
picc line thereafter, Cm is telling team can only go Saturday due to [facility]
Assessment / Plan
Assessment / Plan
#Septic Shock, resolved
Blood cultures positive with Enterococcus faecalis, unclear source, concern for possible endocarditis with history of MV annuloplasty.
-off dobutamine and midodrine
on dobutamine drip and midodrine. IV cefepime and doxycycline have been transitioned to IV ceftriaxone and ampicillin by ID. Follow-up repeat blood cultures, RATNA with vegetation, see plan below. Monitor vitals off hemodynamic support.
#
#Endocarditis
#Enterococcus faecalis bacteremia
� RATNA -evidence of mitral valve vegetation
� CT abdomen pelvis with p.o. and IV contrast�no GI source noted
� Patient up-to-date with colonoscopy
� Continue IV antibiotics, anticipate 6 weeks of antibiotics
�follow-up blood cultures until 2 sets are clear x 72 hours
-Will need PICC line
-as per CM can only be dced after teaching visit Saturday
#Acute on chronic heart failure reduced EF - echocardiogram done December 04 shows LVEF 40 to 45%, hypokinesis most notable in the apical and septal segments, mitral valve repair with anoplasty ring, mild to moderate MR. Mild AR. Dilated and
hypokinetic RV, markedly dilated RA, severe TR. Pulmonary hypertension with PA systolic pressure 60 to 65 mmHg.. P.o. Lasix. Cardiology following. Planning for RHC 12/07 -normal pulmonary capillary wedge and mildly elevated PVR; Add ARB; BB
#Hyponatremia -improved
#Troponin elevation -no chest pain. Suspect acute nonischemic myocardial injury due to acute illness. Troponin trending down. cath 09/28/24 with widely patent bypass grafts
#Prerenal azotemia/RHINA -BUN 38, creatinine 1.3. Previous creatinine 0.8. Differential diagnosis of volume depletion versus cardiorenal syndrome versus other. BUN and creatinine improving with diuresis.
#Chronic atrial fibrillation -on Xarelto.
#COPD without exacerbation
#Blindness -with recent corneal transplant.
#Dilation of the pancreatic duct within the body and neck of the pancreas with fatty atrophy of the head of the pancreas.
-follow-up CT or MRI of the abdomen with attention to the pancreas could be performed, suggested timeframe of 6 months.
Home Xarelto
Full code -confirmed with patient.
Anticipated Discharge: > 48 hours
Subjective/Interval History
-
Date of Service: December 11, 2024
awaiting finalization of cultures
Objective Data
-
Labs:
Laboratory Results
12/11/24
04:55
WBC 5.8
Hgb 13.1
Hct 38.4 L
Plt Count 244
Sodium 137
Potassium 3.9
Chloride 109 H
Carbon Dioxide 24
BUN 15
Creatinine 1.0
Glucose 101 H
Calcium 8.8
Total Bilirubin 0.7
AST 26
ALT 23
Alkaline Phosphatase 71
Vital Signs:
Vital Signs
Temp Pulse Resp BP Pulse Ox
98.2 F 70 25 123/77 100
12/11/24 07:15 12/11/24 11:25 12/11/24 11:25 12/11/24 11:25 12/11/24 08:20
I&O
12/10/24 12/11/24 12/12/24
06:59 06:59 06:59
Intake Total 324 / 324 216 / 216 660 / 660
Output Total 1700 / 1700 1500 / 1500
Balance -1376 / -1376 -1284 / -1284 660 / 660
Review of Systems
-
History Source: Patient
All other systems: Not reviewed unless documented
Physical Exam
-
General: Well Developed, No Apparent Distress, Comfortable and Other (Frail-appearing)
HEENT: Normocephalic, Atraumatic, Moist Mucous Membranes and Anicteric
Respiratory: Clear to Auscultation and Non Labored Respirations; Negative Accessory Resp Muscle Use
Cardiac: Regular Rhythm and S1/S2; Negative Murmur, Rub or Gallop
GI: Soft, Nontender, Nondistended and Normal Bowel Sounds
Musculoskeletal: No Clubbing, No Cyanosis and No Edema
Skin: Warm and Dry; Negative Rash
Neuro: AO x 3, Tremors (Intention) and Nonfocal/Grossly Intact
Psych: Calm
Data Reviewed
-
CT Scan: Report Reviewed by me
Labs: Labs Reviewed by me and Discussed with Patient
--- NOTE | 2024-12-11 14:06 | CM ---
Patient with Hx blindness with Dx HF. Room air. Receiving IV Abx. PT recommends HH.
Messages with Dr Ashley, and Delma, IV Team; blood cultures will be finalized tomorrow. Double lumen PICC line can be placed after cultures are finalized. Provided update that [facility] cannot deliver med until 12/15 and that
[facility] can provide nurse on 12/15 for teaching visit.
Spoke with Patrick, Clinical Liaison [facility]; their first availability to deliver Abx & supplies is on 12/15. Patient will be setup on IV pump for Ampicillin continuous infusion and therefore best if he will have double lumen PICC, so
daughter does not need to discontinue infusion to give the ceftriaxone, which will be an IV push administration. [facility] will need PICC line info so pharmacist can fill the meds. They will want to reconfirm final IV Abx before pharmacist fills
the script. Patrick states that patient has 100% coverage for med & supplies = no out of pocket cost.
Spoke with Kim, Revising Clerk [facility]; their first availabiltyi to provide a nurse is 12/15 for teaching visit. Based on current Abx script, they will need to know if patient was given IV ceftriaxone morning dose at hospital before discharge or
if they need to administer at home. They will help setup IV Ampicillin via pump at home.
Met with patient and spoke with daughter Owen; provided update that MD is waiting for final cultures before PICC can possibly be placed tomorrow, and that [facility] & [facility] soonest availability is to start service on 12/15. Both agree to
d/c home 12/15 with [facility] for home IV Abx and [facility] for SN for IV Abx administration, and PT. Daughter will arrange her work schedule so she is available to assist patient on .
Plan provide PICC line info to [facility] and [facility] when available.
Plan reconfirm d/c plans with [facility] & [facility] 12/15.
Plan home 12/15 with [facility] and [facility], with daughter.
--- NOTE | 2024-12-11 16:37 | PTCARENOTE ---
warm compress applied to left lower arm
[2024-12-11] MEDS: COLACE PO (20:55)
[2024-12-11] MEDS: NON-FORMULARY ITEM 12.5 MG PO (20:56)
[2024-12-12] VITALS (8 sets, daily range): BP systolic 97–140; BP diastolic 55–92; BMI 21.4
[2024-12-12] MEDS: STERILE WATER FOR INJECTION 20 ML IV ×2 (00:34→12:57)
[2024-12-12] MEDS: AMPICILLIN 108 MG IV ×6 (00:35→20:59)
[2024-12-12] MEDS: ROCEPHIN 2000 MG IV ×2 (00:35→12:58)
[2024-12-12 05:55] LABS: Hematocrit 33.4 % (39.0-52.0); Hemoglobin 11.7 g/dL (13.0-18.0); Mean Corpuscular Hgb 32.8 pg (27.0-31.0); Mean Corpuscular Volume 93.6 fL (80.0-94.0); Mean Platelet Volume 9.6 fL (7.4-10.4); Platelet Count 229 10^3/uL (130-400); Red Blood Cell Count 3.57 10^6/uL (4.70-6.10); Red Cell Dist. Width 14.6 % (11.5-14.5); White Blood Cell Count 7.2 10^3/uL (4.8-10.8)
[2024-12-12 06:14] LABS: ALT (SGPT) 19 U/L (0-50); AST (SGOT) 21 U/L (17-59); Alkaline Phosphatase 66 U/L (38-126); Blood Urea Nitrogen 14 mg/dl (9-20); Calcium 8.6 mg/dl (8.4-10.2); Carbon Dioxide 22 mmol/L (22-30); Chloride 109 mmol/L (98-107); Estimated Creatinine Clearance 61 ml/min; Glucose 95 mg/dl (70-99); Potassium 3.8 mmol/L (3.5-5.1); Sodium 136 mmol/L (135-145); Total Bilirubin 0.7 mg/dl (0.2-1.3); Total Protein 5.6 g/dl (6.3-8.2); eGFR > 60.00
[2024-12-12] MEDS: NON-FORMULARY ITEM 1 INH INH (07:21)
[2024-12-12] MEDS: NON-FORMULARY ITEM 1 DROP RIGHT EYE ×4 (08:29→20:42)
[2024-12-12] MEDS: OCUFLOX 1 DROP RIGHT EYE ×2 (08:31→20:42)
[2024-12-12] MEDS: MIRALAX PO (08:32)
[2024-12-12] MEDS: DIOVAN 20 MG PO ×2 (08:33→20:42)
[2024-12-12] MEDS: MUCINEX 1200 MG PO ×2 (08:33→20:43)
[2024-12-12] MEDS: XARELTO 20 MG PO (08:35)
[2024-12-12] MEDS: SINGULAIR 10 MG PO (08:35)
[2024-12-12] MEDS: LASIX 40 MG PO (08:35)
[2024-12-12] MEDS: TOPROL XL 12.5 MG PO (08:35)
[2024-12-12] MEDS: COLACE 100 MG PO (08:36)
--- NOTE | 2024-12-12 09:08 | W.PN.ID1 ---
Date of Service
Date of Service: December 12, 2024
Today's Communication
- Continue Ampicillin 2g IV q4H plus ceftriaxone [id number] (d#5)
- Will switch to ampicillin 12 g/day via continuous infusion at time of discharge.
- Anticipate IV antibiotics x 6 weeks from neg blood cx's.
- Can place double-lumen PICC when approaching discharge - plan for placement of PICC 12/14
# LUE Phlebitis
- offending PIV has been removed
- area is swollen and tender
- repeat blood cultures x2
- US of the [place] system for clot
Assessment / Plan
# Enterococcus faecalis bacteremia (3 sets )
# Fever; resolved
# Recent RUL/RML PNA
# COPD
# CAD, HFrEF, Afib, MV repair with annuloplasty ring
# Cardiogenic hypotension off dobutamine
- 12/11 sputum - debra - normal shawanda
- 12/05 UA neg
- 12/06 bcx / set, 12/07 2 sets: + E. faecalis
- Follow blood cx's until clear x 2 sets
- CT a/p with po and IV contrast - > no GI source.
- Pt up to date with colonoscopy within 10 years.
- Appreciate cardiology. RATNA with mitral valve vegetation
- Continue Ampicillin 2g IV q4H plus ceftriaxone [id number] (d#5)
- Will switch to ampicillin 12 g/day via continuous infusion at time of discharge.
- Anticipate IV antibiotics x 6 weeks from neg blood cx's.
- Can place double-lumen PICC when approaching discharge plan for 12/14
- Have placed home infusion sheet on paper chart. Will be following weekly labs.
# LUE Phlebitis
- offending PIV has been removed
- area is swollen and tender
- repeat blood cultures x2
- US of the [place] system for clot
Additional Past Medical History:
COPD
Afib
Cardiomyopathy requiring lifevest
CAD s/p CABG x 2
Mitral valve annuloplasty ring
HTN
Blind
hx cornea transplant
Chief Complaint
-: Fever, Bacteremia and Other (Mitral valve endocarditis)
Subjective / Review of Systems
afebrile
bp stable
left forearm with possible phlebitis at previous infiltration site
Vital Signs / Physical Exam
Vital Signs
Vital Signs
Temp Pulse Resp BP Pulse Ox
98.0 F 55 18 129/60 95
12/12/24 07:05 12/12/24 04:00 12/12/24 04:00 12/12/24 04:00 12/12/24 04:59
Physical Exam
Constitutional: No Acute Distress
Cardiovascular: Regular Rate and S1/S2; Negative Murmur or Rub
Pulmonary: Clear and Symmetric; Negative Wheezes or Rales
Gastrointestinal: Soft, Non Tender, Non Distended and Normal Bowel Sounds
Musculoskeletal: Other (L arm, red, swollen, tender area at the site of prior PIV, not fluctuant )
Skin: Warm and Dry; Negative Rash or Jaundice
Objective Data
Lab Data
Lab Results
12/12/24 05:47
12/12/24 05:47
Estimated Creat Clear 61 ml/min 12/12/24 05:47
Lactic Acid 1.5 mmol/L (0.7-2.0) 12/05/24 14:30
Total Bilirubin 0.7 mg/dl (0.2-1.3) 12/12/24 05:47
AST 21 U/L (17-59) 12/12/24 05:47
ALT 19 U/L (0-50) 12/12/24 05:47
Alkaline Phosphatase 66 U/L (38-126) 12/12/24 05:47
Most recent labs reviewed.
Micro Results:
12/10/24 06:33 Respiratory Culture - Final
Sputum Debra albicans
Gram Stain - Final
12/09/24 03:26 Blood Culture - Preliminary
Blood/Venous No Growth in 72 hours- Final report to follow
12/08/24 14:36 Blood Culture - Preliminary
Blood/Venous No Growth in 72 hours- Final report to follow
12/08/24 11:23 Blood Culture - Preliminary
Blood/Venous No Growth in 72 hours- Final report to follow
12/07/24 10:54 Blood Culture - Preliminary
Blood/Venous Enterococcus faecalis
Gram Stain - Preliminary
12/07/24 09:55 Blood Culture - Preliminary
Blood/Venous Enterococcus faecalis
Gram Stain - Preliminary
12/06/24 14:34 Blood Culture - Preliminary
Blood/Venous Enterococcus faecalis
Gram Stain - Preliminary
12/06/24 13:46 Influenza Types A & B ([place]) - Final
Nasal Swab Negative for Influenza A & B, NAAT
Negative results must be combined with clinical observations
and patient history.
Nucleic Acid Amplification test (NAAT)performed on the
[employer] platform.
12/05/24 15:31 Legionella Urinary Antigen - Final
Urine Negative for Legionella pneumophila Serogroup 1 antigen.
A negative result does not rule out the possiblity of
Legionella infection due to other serogroups or species of
Legionella. Clinical correlation is recommended.
Streptococcus pneumoniae Antigen (M - Final
Negative for Streptococcus pneumoniae antigen.
A negative result does not exclude infection with
Streptococcus pneumoniae. Clinical correlation is
recommended.
Imaging:
12/05/24 CT chest: Severe apical predominant emphysematous changes which are similar in appearance to prior. There are decreased size of the opacities within the lateral right upper lobe and right middle lobe which are favored to represent improving
pneumonia. Additionally there is decreased size of the right hilar lymph node which is likely reactive.
12/04/24 CXR: No acute cardiopulmonary process within the limitations as described.
Echocardiography:
12/10/2024 RATNA: Normal LV size and wall thickness. EF approximately 40%. Well-seated mitral annuloplasty ring. Echodensity measuring 1.0 x 0.8 cm attached to the anterior mitral leaflet concerning for vegetation.
12/04/2024 TTE: EF approximately 40%. Septal straightening consistent with RV pressure or volume overload. Status post mitral valve repair. Mild to moderate mitral regurgitation and thickened mitral leaflets noted.
--- NOTE | 2024-12-12 09:20 | VATNOTE ---
Vat note: Left arm continues to be red painful swollen as marked. Warm compress applied. Will monitor closely.
--- NOTE | 2024-12-12 13:15 | W.PN.HOSP.TC ---
Today's Communication/Plan
-
abx
will have to await [facility] teaching and infusion delivery (anticipate saturday discharge)
Assessment / Plan
Assessment / Plan
#Septic Shock, resolved
Blood cultures positive with Enterococcus faecalis, unclear source, concern for possible endocarditis with history of MV annuloplasty.
-off dobutamine and midodrine
on dobutamine drip and midodrine. IV cefepime and doxycycline have been transitioned to IV ceftriaxone and ampicillin by ID. Follow-up repeat blood cultures, RATNA with vegetation, see plan below. Monitor vitals off hemodynamic support.
#
#Endocarditis
#Enterococcus faecalis bacteremia
� RATNA -evidence of mitral valve vegetation
� CT abdomen pelvis with p.o. and IV contrast�no GI source noted
� Patient up-to-date with colonoscopy
� Continue IV antibiotics, anticipate 6 weeks of antibiotics
�follow-up blood cultures until 2 sets are clear x 72 hours and finalized
-Will need PICC line
-as per CM can only be dced after teaching visit Thursday 12/14
#Acute on chronic heart failure reduced EF - echocardiogram done December 04 shows LVEF 40 to 45%, hypokinesis most notable in the apical and septal segments, mitral valve repair with anoplasty ring, mild to moderate MR. Mild AR. Dilated and
hypokinetic RV, markedly dilated RA, severe TR. Pulmonary hypertension with PA systolic pressure 60 to 65 mmHg.. P.o. Lasix. Cardiology following. Planning for RHC 12/07 -normal pulmonary capillary wedge and mildly elevated PVR; Add ARB; BB
#Hyponatremia -improved
#Troponin elevation -no chest pain. Suspect acute nonischemic myocardial injury due to acute illness. Troponin trending down. cath 09/28/24 with widely patent bypass grafts
#Prerenal azotemia/RHINA -BUN 38, creatinine 1.3. Previous creatinine 0.8. Differential diagnosis of volume depletion versus cardiorenal syndrome versus other. BUN and creatinine improving with diuresis.
#Chronic atrial fibrillation -on Xarelto.
#COPD without exacerbation
#Blindness -with recent corneal transplant.
#Dilation of the pancreatic duct within the body and neck of the pancreas with fatty atrophy of the head of the pancreas.
-follow-up CT or MRI of the abdomen with attention to the pancreas could be performed, suggested timeframe of 6 months.
Home Xarelto
Full code -confirmed with patient.
Anticipated Discharge: > 48 hours
Subjective/Interval History
-
Date of Service: December 12, 2024
no acute events
Objective Data
-
Labs:
Laboratory Results
12/12/24
05:47
WBC 7.2
Hgb 11.7 L
Hct 33.4 L
Plt Count 229
Sodium 136
Potassium 3.8
Chloride 109 H
Carbon Dioxide 22
BUN 14
Creatinine 0.9
Glucose 95
Calcium 8.6
Total Bilirubin 0.7
AST 21
ALT 19
Alkaline Phosphatase 66
Vital Signs:
Vital Signs
Temp Pulse Resp BP Pulse Ox
98.0 F 81 19 140/82 98
12/12/24 07:05 12/12/24 08:34 12/12/24 08:34 12/12/24 08:34 12/12/24 08:59
I&O
12/11/24 12/12/24 12/13/24
06:59 06:59 06:59
Intake Total 216 / 216 984 / 984
Output Total 1500 / 1500 1775 / 1775 250 / 250
Balance -1284 / -1284 -791 / -791 -250 / -250
Review of Systems
-
History Source: Patient
All other systems: Not reviewed unless documented
Physical Exam
-
General: Well Developed, No Apparent Distress, Comfortable and Other (Frail-appearing)
HEENT: Normocephalic, Atraumatic, Moist Mucous Membranes and Anicteric
Respiratory: Clear to Auscultation and Non Labored Respirations; Negative Accessory Resp Muscle Use
Cardiac: Regular Rhythm and S1/S2; Negative Murmur, Rub or Gallop
GI: Soft, Nontender, Nondistended and Normal Bowel Sounds
Musculoskeletal: No Clubbing, No Cyanosis and No Edema
Skin: Warm and Dry; Negative Rash
Neuro: AO x 3, Tremors (Intention) and Nonfocal/Grossly Intact
Psych: Calm
--- NOTE | 2024-12-12 17:15 | PTCARENOTE ---
Received report from Neida in IMU. Pt arrived to rm 409-1 at this time. Pt AAOx3, legally blind, CRAIG, Afib on telemetry HR 70s-80s. Pt states that he has tenderness of left forearm area. Area is red, warm, + 1 swelling, Ultrasound completed earlier
today. See shift assessment for further detail. Oriented pt to , call patel, plan of care, pt verbalized understanding, call patel within reach.
[2024-12-12] MEDS: NON-FORMULARY ITEM 12.5 MG PO (20:43)
[2024-12-12] MEDS: COLACE PO (20:43)
[2024-12-13] MEDS: STERILE WATER FOR INJECTION 20 ML IV ×2 (00:55→11:54)
[2024-12-13] MEDS: ROCEPHIN 2000 MG IV ×2 (00:55→11:54)
[2024-12-13] MEDS: AMPICILLIN 108 MG IV ×6 (00:58→20:33)
[2024-12-13 03:00] VITALS: BP 106/65
[2024-12-13 06:00] VITALS: BMI 21.2
[2024-12-13 06:18] LABS: Hematocrit 33.7 % (39.0-52.0); Hemoglobin 11.4 g/dL (13.0-18.0); Mean Corp Hgb Conc. 33.8 g/dL (33.0-37.0); Mean Corpuscular Hgb 32.1 pg (27.0-31.0); Mean Corpuscular Volume 94.9 fL (80.0-94.0); Mean Platelet Volume 9.6 fL (7.4-10.4); Platelet Count 236 10^3/uL (130-400); Red Blood Cell Count 3.55 10^6/uL (4.70-6.10); Red Cell Dist. Width 14.6 % (11.5-14.5); White Blood Cell Count 8.8 10^3/uL (4.8-10.8)
[2024-12-13 06:51] LABS: ALT (SGPT) 16 U/L (0-50); AST (SGOT) 18 U/L (17-59); Alkaline Phosphatase 62 U/L (38-126); Blood Urea Nitrogen 14 mg/dl (9-20); Calcium 8.6 mg/dl (8.4-10.2); Carbon Dioxide 24 mmol/L (22-30); Chloride 108 mmol/L (98-107); Estimated Creatinine Clearance 55 ml/min; Glucose 90 mg/dl (70-99); Potassium 3.8 mmol/L (3.5-5.1); Sodium 137 mmol/L (135-145); Total Bilirubin 0.5 mg/dl (0.2-1.3); Total Protein 5.8 g/dl (6.3-8.2); eGFR > 60.00
[2024-12-13 07:09] VITALS: BP 137/74
[2024-12-13] MEDS: NON-FORMULARY ITEM 1 INH INH (07:42)
[2024-12-13] MEDS: TOPROL XL 12.5 MG PO (08:23)
[2024-12-13] MEDS: MUCINEX 1200 MG PO ×2 (08:23→20:34)
[2024-12-13] MEDS: DIOVAN 20 MG PO ×2 (08:24→20:34)
[2024-12-13] MEDS: MIRALAX PO ×2 (08:24→08:34)
[2024-12-13] MEDS: SINGULAIR 10 MG PO (08:24)
[2024-12-13] MEDS: XARELTO 20 MG PO (08:25)
[2024-12-13] MEDS: LASIX 40 MG PO (08:25)
[2024-12-13] MEDS: COLACE PO ×2 (08:25→08:33)
[2024-12-13] MEDS: OCUFLOX 1 DROP RIGHT EYE ×2 (08:26→20:36)
[2024-12-13] MEDS: NON-FORMULARY ITEM 1 DROP RIGHT EYE ×4 (08:26→20:38)
[2024-12-13 11:25] VITALS: BP 149/81
--- NOTE | 2024-12-13 12:06 | W.PN.ID1 ---
Date of Service
Date of Service: December 13, 2024
Today's Communication
- Continue Ampicillin 2g IV q4H plus ceftriaxone [id number] (d#5)
- Will switch to ampicillin 12 g/day via continuous infusion at time of discharge.
- Anticipate IV antibiotics x 6 weeks from neg blood cx's.
- Can place double-lumen PICC when approaching discharge plan for 12/14 if 12/12 blood cultures remain negative
- Have placed home infusion sheet on paper chart. Will be following weekly labs.
Assessment / Plan
# Enterococcus faecalis bacteremia (3 sets )
# Fever; resolved
# Recent RUL/RML PNA
# COPD
# CAD, HFrEF, Afib, MV repair with annuloplasty ring
# Cardiogenic hypotension off dobutamine
- 12/11 sputum - debra - normal shawanda
- 12/05 UA neg
- 12/06 bcx 07/22 set, 12/07 2 sets: + E. faecalis
- Follow blood cx's until clear x 2 sets
- CT a/p with po and IV contrast - > no GI source.
- Pt up to date with colonoscopy within 10 years.
- Appreciate cardiology. RATNA with mitral valve vegetation
- Continue Ampicillin 2g IV q4H plus ceftriaxone [id number] (d#5)
- Will switch to ampicillin 12 g/day via continuous infusion at time of discharge.
- Anticipate IV antibiotics x 6 weeks from neg blood cx's.
- Can place double-lumen PICC when approaching discharge plan for 12/14 if 12/12 blood cultures remain negative
- Have placed home infusion sheet on paper chart. Will be following weekly labs.
# LUE Phlebitis
- offending PIV has been removed; US with SVT
- area is swollen and tender
- repeat blood cultures x2 no growth to date
Additional Past Medical History:
COPD
Afib
Cardiomyopathy requiring lifevest
CAD s/p CABG x 2
Mitral valve annuloplasty ring
HTN
Blind
hx cornea transplant
Chief Complaint
-: Fever, Bacteremia and Other (Mitral valve endocarditis)
Subjective / Review of Systems
afebrile
bp stable
L arm phlebitis remains red, swollen, tender - no cord
Vital Signs / Physical Exam
Vital Signs
Vital Signs
Temp Pulse Resp BP Pulse Ox
97.6 F 65 16 149/81 97
12/13/24 11:25 12/13/24 11:25 12/13/24 11:25 12/13/24 11:25 12/13/24 11:25
Physical Exam
Constitutional: No Acute Distress
Cardiovascular: Regular Rate and S1/S2; Negative Murmur or Rub
Pulmonary: Clear and Symmetric; Negative Wheezes or Rales
Gastrointestinal: Soft, Non Tender, Non Distended and Normal Bowel Sounds
Extremities: Other (L arm phlebitis remains red, swollen, tender - no cord )
Skin: Warm and Dry; Negative Rash or Jaundice
Objective Data
Lab Data
Lab Results
12/13/24 05:55
12/13/24 05:55
Estimated Creat Clear 55 ml/min 12/13/24 05:55
Lactic Acid 1.5 mmol/L (0.7-2.0) 12/05/24 14:30
Total Bilirubin 0.5 mg/dl (0.2-1.3) 12/13/24 05:55
AST 18 U/L (17-59) 12/13/24 05:55
ALT 16 U/L (0-50) 12/13/24 05:55
Alkaline Phosphatase 62 U/L (38-126) 12/13/24 05:55
Most recent labs reviewed.
Micro Results:
12/08/24 11:23 Blood Culture - Final
Blood/Venous No Growth - Final Report
12/06/24 14:34 Blood Culture - Final
Blood/Venous Enterococcus faecalis
Gram Stain - Final
12/09/24 03:26 Blood Culture - Preliminary
Blood/Venous No Growth in 4 days- Final report to follow
12/12/24 21:00 Blood Culture - Pending
Blood/Venous
12/12/24 20:16 Blood Culture - Pending
Blood/Venous
12/08/24 14:36 Blood Culture - Preliminary
Blood/Venous No Growth in 4 days- Final report to follow
12/10/24 06:33 Respiratory Culture - Final
Sputum Debra albicans
Gram Stain - Final
12/07/24 10:54 Blood Culture - Preliminary
Blood/Venous Enterococcus faecalis
Gram Stain - Preliminary
12/07/24 09:55 Blood Culture - Preliminary
Blood/Venous Enterococcus faecalis
Gram Stain - Preliminary
12/06/24 13:46 Influenza Types A & B ([place]) - Final
Nasal Swab Negative for Influenza A & B, NAAT
Negative results must be combined with clinical observations
and patient history.
Nucleic Acid Amplification test (NAAT)performed on the
[employer] platform.
12/05/24 15:31 Legionella Urinary Antigen - Final
Urine Negative for Legionella pneumophila Serogroup 1 antigen.
A negative result does not rule out the possiblity of
Legionella infection due to other serogroups or species of
Legionella. Clinical correlation is recommended.
Streptococcus pneumoniae Antigen ([place] - Final
Negative for Streptococcus pneumoniae antigen.
A negative result does not exclude infection with
Streptococcus pneumoniae. Clinical correlation is
recommended.
Imaging:
12/05/24 CT chest: Severe apical predominant emphysematous changes which are similar in appearance to prior. There are decreased size of the opacities within the lateral right upper lobe and right middle lobe which are favored to represent improving
pneumonia. Additionally there is decreased size of the right hilar lymph node which is likely reactive.
12/04/24 CXR: No acute cardiopulmonary process within the limitations as described.
Echocardiography:
12/10/2024 RATNA: Normal LV size and wall thickness. EF approximately 40%. Well-seated mitral annuloplasty ring. Echodensity measuring 1.0 x 0.8 cm attached to the anterior mitral leaflet concerning for vegetation.
12/04/2024 TTE: EF approximately 40%. Septal straightening consistent with RV pressure or volume overload. Status post mitral valve repair. Mild to moderate mitral regurgitation and thickened mitral leaflets noted.
--- NOTE | 2024-12-13 12:11 | W.PN.HOSP.TC ---
Today's Communication/Plan
-
abx
will have to await [facility] teaching and infusion delivery (anticipate saturday discharge)
Assessment / Plan
Assessment / Plan
#Septic Shock, resolved
Blood cultures positive with Enterococcus faecalis, unclear source, concern for possible endocarditis with history of MV annuloplasty.
-off dobutamine and midodrine
on dobutamine drip and midodrine. IV cefepime and doxycycline have been transitioned to IV ceftriaxone and ampicillin by ID. Follow-up repeat blood cultures, RATNA with vegetation, see plan below. Monitor vitals off hemodynamic support.
#
#Endocarditis
#Enterococcus faecalis bacteremia
� RATNA -evidence of mitral valve vegetation
� CT abdomen pelvis with p.o. and IV contrast�no GI source noted
� Patient up-to-date with colonoscopy
� Continue IV antibiotics, anticipate 6 weeks of antibiotics
�follow-up blood cultures until 2 sets are clear x 72 hours and finalized
-Will need PICC line (can place on Saturday/Saturday)
-as per CM can only be dced after teaching visit Thursday 12/14
#Acute on chronic heart failure reduced EF - echocardiogram done December 04 shows LVEF 40 to 45%, hypokinesis most notable in the apical and septal segments, mitral valve repair with anoplasty ring, mild to moderate MR. Mild AR. Dilated and
hypokinetic RV, markedly dilated RA, severe TR. Pulmonary hypertension with PA systolic pressure 60 to 65 mmHg.. P.o. Lasix. Cardiology following. Planning for RHC 12/07 -normal pulmonary capillary wedge and mildly elevated PVR; Add ARB; BB
#Hyponatremia -improved
#Troponin elevation -no chest pain. Suspect acute nonischemic myocardial injury due to acute illness. Troponin trending down. cath 09/28/24 with widely patent bypass grafts
#Prerenal azotemia/RHINA -BUN 38, creatinine 1.3. Previous creatinine 0.8. Differential diagnosis of volume depletion versus cardiorenal syndrome versus other. BUN and creatinine improving with diuresis.
#Chronic atrial fibrillation -on Xarelto.
#COPD without exacerbation
#Blindness -with recent corneal transplant.
#Dilation of the pancreatic duct within the body and neck of the pancreas with fatty atrophy of the head of the pancreas.
-follow-up CT or MRI of the abdomen with attention to the pancreas could be performed, suggested timeframe of 6 months.
Home Xarelto
Full code -confirmed with patient.
Anticipated Discharge: 24 - 48 hours
Subjective/Interval History
-
Date of Service: December 13, 2024
no acute events
Objective Data
-
Labs:
Laboratory Results
12/13/24
05:55
WBC 8.8
Hgb 11.4 L
Hct 33.7 L
Plt Count 236
Sodium 137
Potassium 3.8
Chloride 108 H
Carbon Dioxide 24
BUN 14
Creatinine 1.0
Glucose 90
Calcium 8.6
Total Bilirubin 0.5
AST 18
ALT 16
Alkaline Phosphatase 62
Vital Signs:
Vital Signs
Temp Pulse Resp BP Pulse Ox
97.6 F 65 16 149/81 97
12/13/24 11:25 12/13/24 11:25 12/13/24 11:25 12/13/24 11:25 12/13/24 11:25
I&O
12/12/24 12/13/24 12/14/24
06:59 06:59 06:59
Intake Total 984 / 984 852 / 852 360 / 360
Output Total 1775 / 1775 1100 / 1100 200 / 200
Balance -791 / -791 -248 / -248 160 / 160
Review of Systems
-
History Source: Patient
All other systems: Not reviewed unless documented
Data Reviewed
-
CT Scan: Report Reviewed by me
Labs: Labs Reviewed by me and Discussed with Patient
[2024-12-13 15:30] VITALS: BP 134/62
[2024-12-13 19:44] VITALS: BP 121/65
[2024-12-13] MEDS: COLACE 100 MG PO (20:33)
[2024-12-13] MEDS: NON-FORMULARY ITEM 12.5 MG PO (21:45)
[2024-12-13] MEDS: TYLENOL 650 MG PO (22:46)
[2024-12-13 23:30] VITALS: BP 119/60
[2024-12-14] MEDS: AMPICILLIN 108 MG IV ×6 (00:30→20:25)
[2024-12-14] MEDS: ROCEPHIN 2000 MG IV ×2 (00:30→11:56)
[2024-12-14] MEDS: STERILE WATER FOR INJECTION 20 ML IV ×2 (00:30→11:56)
[2024-12-14 03:21] VITALS: BP 127/63
[2024-12-14] MEDS: TYLENOL 650 MG PO ×3 (05:02→21:58)
[2024-12-14 06:00] VITALS: BMI 21.3
[2024-12-14 07:16] LABS: Hematocrit 31.7 % (39.0-52.0); Hemoglobin 10.9 g/dL (13.0-18.0); Mean Corp Hgb Conc. 34.4 g/dL (33.0-37.0); Mean Corpuscular Hgb 32.2 pg (27.0-31.0); Mean Corpuscular Volume 93.8 fL (80.0-94.0); Platelet Count 243 10^3/uL (130-400); Red Blood Cell Count 3.38 10^6/uL (4.70-6.10); Red Cell Dist. Width 14.7 % (11.5-14.5); White Blood Cell Count 8.6 10^3/uL (4.8-10.8)
[2024-12-14 07:29] VITALS: BP 119/60
[2024-12-14 07:31] LABS: ALT (SGPT) 14 U/L (0-50); AST (SGOT) 16 U/L (17-59); Albumin 2.8 g/dl (3.5-5.0); Alkaline Phosphatase 61 U/L (38-126); Blood Urea Nitrogen 15 mg/dl (9-20); Calcium 8.6 mg/dl (8.4-10.2); Carbon Dioxide 25 mmol/L (22-30); Chloride 108 mmol/L (98-107); Estimated Creatinine Clearance 61 ml/min; Glucose 90 mg/dl (70-99); Potassium 3.7 mmol/L (3.5-5.1); Sodium 136 mmol/L (135-145); Total Bilirubin 0.6 mg/dl (0.2-1.3); Total Protein 5.5 g/dl (6.3-8.2); eGFR > 60.00
[2024-12-14] MEDS: COLACE 100 MG PO ×2 (08:11→20:31)
[2024-12-14] MEDS: NON-FORMULARY ITEM 1 INH INH (08:11)
[2024-12-14] MEDS: MIRALAX PO (08:12)
[2024-12-14] MEDS: DIOVAN 20 MG PO ×2 (08:12→20:32)
[2024-12-14] MEDS: MUCINEX 1200 MG PO ×2 (08:13→20:30)
[2024-12-14] MEDS: SINGULAIR 10 MG PO (08:13)
[2024-12-14] MEDS: LASIX 40 MG PO (08:14)
[2024-12-14] MEDS: XARELTO 20 MG PO (08:14)
[2024-12-14] MEDS: TOPROL XL 12.5 MG PO (08:14)
[2024-12-14] MEDS: NON-FORMULARY ITEM 1 DROP RIGHT EYE ×4 (08:15→20:32)
[2024-12-14] MEDS: OCUFLOX 1 DROP RIGHT EYE ×2 (08:16→20:32)
--- NOTE | 2024-12-14 09:59 | W.PN.ID1 ---
Date of Service
Date of Service: December 14, 2024
Today's Communication
- Continue Ampicillin 2g IV q4H plus ceftriaxone [id number]
- Will switch to ampicillin 12 g/day via continuous infusion at time of discharge.
- Anticipate IV antibiotics x 6 weeks from neg blood cx's.
- PICC today, likely dc tomorrow
Assessment / Plan
# Enterococcus faecalis bacteremia (3 sets )
# Fever; resolved
# Recent RUL/RML PNA
# COPD
# CAD, HFrEF, Afib, MV repair with annuloplasty ring
# Cardiogenic hypotension off dobutamine
- 12/11 sputum - debra - normal shawanda
- 12/05 UA neg
- 12/06 bcx / set, 12/07 2 sets: + E. faecalis
- Follow blood cx's until clear x 2 sets
- CT a/p with po and IV contrast - > no GI source.
- Pt up to date with colonoscopy within 10 years.
- Appreciate cardiology. RATNA with mitral valve vegetation
- Continue Ampicillin 2g IV q4H plus ceftriaxone [id number]
- Will switch to ampicillin 12 g/day via continuous infusion at time of discharge.
- Anticipate IV antibiotics x 6 weeks from neg blood cx's.
- PICC today, likely dc tomorrow
- Have placed home infusion sheet on paper chart. Will be following weekly labs.
# LUE Phlebitis
- offending PIV has been removed; US with SVT
- area is swollen and tender
- repeat blood cultures x2 no growth to date
Additional Past Medical History:
COPD
Afib
Cardiomyopathy requiring lifevest
CAD s/p CABG x 2
Mitral valve annuloplasty ring
HTN
Blind
hx cornea transplant
Chief Complaint
-: Fever, Bacteremia and Other (Mitral valve endocarditis)
Subjective / Review of Systems
afebrile
bp stable
tolerating current therapies
Vital Signs / Physical Exam
Vital Signs
Vital Signs
Temp Pulse Resp BP Pulse Ox
98.6 F 75 18 119/60 96
12/14/24 07:29 12/14/24 08:14 12/14/24 08:11 12/14/24 08:14 12/14/24 07:29
Physical Exam
Constitutional: No Acute Distress
Cardiovascular: Regular Rate and S1/S2; Negative Murmur or Rub
Pulmonary: Clear and Symmetric; Negative Wheezes or Rales
Gastrointestinal: Soft, Non Tender, Non Distended and Normal Bowel Sounds
Skin: Warm and Dry; Negative Rash or Jaundice
Objective Data
Lab Data
Lab Results
12/14/24 06:31
12/14/24 06:31
Estimated Creat Clear 61 ml/min 12/14/24 06:31
Lactic Acid 1.5 mmol/L (0.7-2.0) 12/05/24 14:30
Total Bilirubin 0.6 mg/dl (0.2-1.3) 12/14/24 06:31
AST 16 U/L (17-59) L 12/14/24 06:31
ALT 14 U/L (0-50) 12/14/24 06:31
Alkaline Phosphatase 61 U/L (38-126) 12/14/24 06:31
Most recent labs reviewed.
Micro Results:
12/09/24 03:26 Blood Culture - Final
Blood/Venous No Growth - Final Report
12/12/24 21:00 Blood Culture - Preliminary
Blood/Venous No Growth in 24 hours- Final report to follow
12/12/24 20:16 Blood Culture - Preliminary
Blood/Venous No Growth in 24 hours- Final report to follow
12/08/24 14:36 Blood Culture - Final
Blood/Venous No Growth - Final Report
12/08/24 11:23 Blood Culture - Final
Blood/Venous No Growth - Final Report
12/06/24 14:34 Blood Culture - Final
Blood/Venous Enterococcus faecalis
Gram Stain - Final
12/10/24 06:33 Respiratory Culture - Final
Sputum Debra albicans
Gram Stain - Final
12/07/24 10:54 Blood Culture - Preliminary
Blood/Venous Enterococcus faecalis
Gram Stain - Preliminary
12/07/24 09:55 Blood Culture - Preliminary
Blood/Venous Enterococcus faecalis
Gram Stain - Preliminary
12/06/24 13:46 Influenza Types A & B ([place]) - Final
Nasal Swab Negative for Influenza A & B, NAAT
Negative results must be combined with clinical observations
and patient history.
Nucleic Acid Amplification test (NAAT)performed on the
[employer] platform.
12/05/24 15:31 Legionella Urinary Antigen - Final
Urine Negative for Legionella pneumophila Serogroup 1 antigen.
A negative result does not rule out the possiblity of
Legionella infection due to other serogroups or species of
Legionella. Clinical correlation is recommended.
Streptococcus pneumoniae Antigen (M - Final
Negative for Streptococcus pneumoniae antigen.
A negative result does not exclude infection with
Streptococcus pneumoniae. Clinical correlation is
recommended.
Imaging:
12/05/24 CT chest: Severe apical predominant emphysematous changes which are similar in appearance to prior. There are decreased size of the opacities within the lateral right upper lobe and right middle lobe which are favored to represent improving
pneumonia. Additionally there is decreased size of the right hilar lymph node which is likely reactive.
12/04/24 CXR: No acute cardiopulmonary process within the limitations as described.
Echocardiography:
12/10/2024 RATNA: Normal LV size and wall thickness. EF approximately 40%. Well-seated mitral annuloplasty ring. Echodensity measuring 1.0 x 0.8 cm attached to the anterior mitral leaflet concerning for vegetation.
12/04/2024 TTE: EF approximately 40%. Septal straightening consistent with RV pressure or volume overload. Status post mitral valve repair. Mild to moderate mitral regurgitation and thickened mitral leaflets noted.
[2024-12-14 11:20] VITALS: BP 127/64
--- NOTE | 2024-12-14 12:11 | VATNOTE ---
12/14 PICC ordered for group home antibiotics. RT DL 4 FR PICC was placed under maximum bedside sterility. Patient tolerated. Patient educated on PICC care and use; all questions answered. TCL 43cm ECL0. To be redressed on tomorrow.
--- NOTE | 2024-12-14 13:26 | W.PN.HOSP.TC ---
Today's Communication/Plan
-
home infusion to be arranged
Assessment / Plan
Assessment / Plan
79yo M with PMHx of COPD, HFrEF, CAD s/p CABG, HLD, MV annuloplasty, well seated as per RATNA, PFO, A.flutter came with shock, concern for cardiogenic vs septic, initially on midodrine, then dobutamine, later found bacteremia with E.faecalis and had R
heart cath due to biventricular CHF (he wears a lifevest as OP, continue per his OP motor vehicle technician) with precapillary pulmonary hypertension on 12/07/24. RATNA on 12/10/24 with EF 40-45% and Echodensity measuring 1.0 cm x 0.8 cm attached the anterior
mitral leaflet. Managed for endocarditis, PICC placed on 12/14/24 as repeated Bcx NTD (agreed with ID). Cardiology signed off. Pending home infusion setup - patient will be staying with his daughter local to [place].
A/P:
#Acute bacterial endocarditis with septic shock on admisison with bacteremia
Cardio and ID followed
pending esteblishing of home infusions
weaned off Dolbutamine on 12/08/24
#CAD s/p CABG
#Acute on Chronic HFrEF
#severe TR
#Afib/A.flutter, unspecified
#s/p MV ring annuloplasty in 2012
#Non-ischemic troponin elevation
patient CABG as per cath
Cardio followed
#COPD with emphysema, chronic
#HLD
cont home meds
#IV extravasation in L forearm
improving
#Blideness
with recent corneal transplant
#Dilation of the pancreatic duct within the body and neck of the pancreas with fatty atrophy of the head of the pancreas.
follow-up CT or MRI of the abdomen with attention to the pancreas could be performed, suggested timeframe of 6 months.
DVT ppx Xarelto
Full code
I have spent at least 58min reviewing chart, test results, communication with consultants and providing direct patient care
Anticipated Discharge: 24 - 48 hours
Subjective/Interval History
-
Date of Service: December 14, 2024
Objective Data
-
Labs:
Laboratory Results
12/14/24
06:31
WBC 8.6
Hgb 10.9 L
Hct 31.7 L
Plt Count 243
Sodium 136
Potassium 3.7
Chloride 108 H
Carbon Dioxide 25
BUN 15
Creatinine 0.9
Glucose 90
Calcium 8.6
Total Bilirubin 0.6
AST 16 L
ALT 14
Alkaline Phosphatase 61
Vital Signs:
Vital Signs
Temp Pulse Resp BP Pulse Ox
97.6 F 61 20 127/64 98
12/14/24 11:20 12/14/24 11:20 12/14/24 11:20 12/14/24 11:20 12/14/24 11:20
I&O
12/13/24 12/14/24 12/15/24
06:59 06:59 06:59
Intake Total 852 / 852 1188 / 1188 960 / 960
Output Total 1100 / 1100 1950 / 1950 725 / 725
Balance -248 / -248 -762 / -762 235 / 235
Review of Systems
-
History Source: Patient
All other systems: Reviewed and negative
Physical Exam
-
General: No Apparent Distress and Comfortable
HEENT: Moist Mucous Membranes
Respiratory: Clear to Auscultation
GI: Soft, Nontender and Nondistended
Neuro: Awake, Alert, Oriented and AO x 3
Psych: Calm
--- NOTE | 2024-12-14 14:13 | CM ---
Chart reviewed and director case reviewed previous director case notes and spoke with physician and patient to have home IV ABX set up for tomorrow, referral sent to [facility] home infusion and [facility] visiting nurses, PICC line placed and PICC line
information faxed to [facility] today.
Plan; To follow up with home infusion from [facility] and [facility] visiting nurses.
[2024-12-14 15:02] VITALS: BP 167/53
[2024-12-14 19:20] VITALS: BP 138/65
[2024-12-14] MEDS: NON-FORMULARY ITEM 12.5 MG PO (21:58)
[2024-12-14 22:55] VITALS: BP 142/62
[2024-12-15] MEDS: AMPICILLIN 108 MG IV ×7 (00:36→23:46)
[2024-12-15] MEDS: STERILE WATER FOR INJECTION 20 ML IV ×3 (00:36→23:45)
[2024-12-15] MEDS: ROCEPHIN 2000 MG IV ×3 (00:36→23:47)
[2024-12-15 03:28] VITALS: BP 150/60
[2024-12-15 05:57] VITALS: BMI 21.5
[2024-12-15 07:47] VITALS: BP 177/60
[2024-12-15] MEDS: NON-FORMULARY ITEM 1 INH INH (07:55)
[2024-12-15] MEDS: TOPROL XL 12.5 MG PO (09:07)
[2024-12-15] MEDS: MUCINEX 1200 MG PO ×2 (09:07→19:15)
[2024-12-15] MEDS: DIOVAN 20 MG PO ×2 (09:08→19:10)
[2024-12-15] MEDS: XARELTO 20 MG PO (09:08)
[2024-12-15] MEDS: LASIX 40 MG PO (09:08)
[2024-12-15] MEDS: COLACE PO ×2 (09:09→19:05)
[2024-12-15] MEDS: MIRALAX PO (09:09)
[2024-12-15] MEDS: SINGULAIR 10 MG PO (09:09)
[2024-12-15] MEDS: OCUFLOX 1 DROP RIGHT EYE ×2 (09:10→19:16)
[2024-12-15] MEDS: NON-FORMULARY ITEM 1 DROP RIGHT EYE ×4 (09:10→19:16)
--- NOTE | 2024-12-15 09:44 | W.PN.ID1 ---
Date of Service
Date of Service: December 15, 2024
Today's Communication
See below.
Assessment / Plan
# MV endocarditis
# Enterococcus faecalis bacteremia (3 sets )
# Fever; resolved
# Recent RUL/RML PNA
# COPD
# CAD, HFrEF, Afib, MV repair with annuloplasty ring
# Cardiogenic hypotension off dobutamine
- 12/11 sputum - debra - normal shawanda
- 12/05 UA neg
- 12/06 bcx / set, 12/07 2 sets: + E. faecalis
- Follow blood cx's until clear x 2 sets
- CT a/p with po and IV contrast - > no GI source.
- Pt up to date with colonoscopy within 10 years.
- Appreciate cardiology. RATNA with mitral valve vegetation
- Continue Ampicillin 2g IV q4H plus ceftriaxone [id number]
- Will switch to ampicillin 12 g/day via continuous infusion at time of discharge.
- Continue IV antibiotics x 6 weeks from neg blood cx's, i.e through 01/18/25, then suppression with amoxicllin for retained MV annuloplasty ring.
- DC home when home IV set up.
-Follow-up with me in 3 to 4 weeks.
# LUE Phlebitis
- offending PIV has been removed; US with SVT
- apply cold or warm compress
- repeat blood cultures x2 no growth to date
Additional Past Medical History:
COPD
Afib
Cardiomyopathy requiring lifevest
CAD s/p CABG x 2
Mitral valve annuloplasty ring
HTN
Blind
hx cornea transplant
Chief Complaint
-: Bacteremia and Other (Mitral valve endocarditis)
Subjective / Review of Systems
Left arm phlebitis not as sore.
Vital Signs / Physical Exam
Vital Signs
Vital Signs
Temp Pulse Resp BP Pulse Ox
98.2 F 61 18 177/60 98
12/15/24 07:47 12/15/24 09:08 12/15/24 07:47 12/15/24 09:08 12/15/24 07:47
Physical Exam
Constitutional: No Acute Distress and Comfortable
Cardiovascular: Regular Rate and S1/S2
Pulmonary: Clear
Gastrointestinal: Soft, Non Tender, Non Distended and Normal Bowel Sounds
Extremities: Negative Edema
Skin: Other (left forearm induration without erythema at previous PIV site)
Neurological: AO x 3
Objective Data
Lab Data
Lab Results
12/14/24 06:31
12/14/24 06:31
Estimated Creat Clear 61 ml/min 12/14/24 06:31
Lactic Acid 1.5 mmol/L (0.7-2.0) 12/05/24 14:30
Total Bilirubin 0.6 mg/dl (0.2-1.3) 12/14/24 06:31
AST 16 U/L (17-59) L 12/14/24 06:31
ALT 14 U/L (0-50) 12/14/24 06:31
Alkaline Phosphatase 61 U/L (38-126) 12/14/24 06:31
Most recent labs reviewed.
Micro Results:
12/12/24 21:00 Blood Culture - Preliminary
Blood/Venous No Growth in 48 hours- Final report to follow
12/12/24 20:16 Blood Culture - Preliminary
Blood/Venous No Growth in 48 hours- Final report to follow
12/07/24 10:54 Blood Culture - Final
Blood/Venous Enterococcus faecalis
Gram Stain - Final
12/07/24 09:55 Blood Culture - Final
Blood/Venous Enterococcus faecalis
Gram Stain - Final
12/09/24 03:26 Blood Culture - Final
Blood/Venous No Growth - Final Report
12/08/24 14:36 Blood Culture - Final
Blood/Venous No Growth - Final Report
12/08/24 11:23 Blood Culture - Final
Blood/Venous No Growth - Final Report
12/06/24 14:34 Blood Culture - Final
Blood/Venous Enterococcus faecalis
Gram Stain - Final
12/10/24 06:33 Respiratory Culture - Final
Sputum Debra albicans
Gram Stain - Final
12/06/24 13:46 Influenza Types A & B ([place]) - Final
Nasal Swab Negative for Influenza A & B, NAAT
Negative results must be combined with clinical observations
and patient history.
Nucleic Acid Amplification test (NAAT)performed on the
[employer] platform.
12/05/24 15:31 Legionella Urinary Antigen - Final
Urine Negative for Legionella pneumophila Serogroup 1 antigen.
A negative result does not rule out the possiblity of
Legionella infection due to other serogroups or species of
Legionella. Clinical correlation is recommended.
Streptococcus pneumoniae Antigen ([place] - Final
Negative for Streptococcus pneumoniae antigen.
A negative result does not exclude infection with
Streptococcus pneumoniae. Clinical correlation is
recommended.
Imaging:
12/05/24 CT chest: Severe apical predominant emphysematous changes which are similar in appearance to prior. There are decreased size of the opacities within the lateral right upper lobe and right middle lobe which are favored to represent improving
pneumonia. Additionally there is decreased size of the right hilar lymph node which is likely reactive.
12/04/24 CXR: No acute cardiopulmonary process within the limitations as described.
Echocardiography:
12/10/2024 RATNA: Normal LV size and wall thickness. EF approximately 40%. Well-seated mitral annuloplasty ring. Echodensity measuring 1.0 x 0.8 cm attached to the anterior mitral leaflet concerning for vegetation.
12/04/2024 TTE: EF approximately 40%. Septal straightening consistent with RV pressure or volume overload. Status post mitral valve repair. Mild to moderate mitral regurgitation and thickened mitral leaflets noted.
Care Review
Plan reviewed with: Physician (Dr. Sosa)
--- NOTE | 2024-12-15 09:55 | W.PN.HOSP.TC ---
Today's Communication/Plan
-
pending CM to confirm home infusion setup and then - d/c
Assessment / Plan
Assessment / Plan
79yo M with PMHx of COPD, HFrEF, CAD s/p CABG, HLD, MV annuloplasty, well seated as per RATNA, PFO, A.flutter came with shock, concern for cardiogenic vs septic, initially on midodrine, then dobutamine, later found bacteremia with E.faecalis and had R
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 RATNA on 12/10/24 with EF 40-45% and Echodensity measuring 1.0 cm x 0.8 cm attached the anterior
mitral leaflet. Managed for endocarditis, PICC placed on 12/14/24 as repeated Bcx NTD (agreed with ID). Cardiology signed off. Pending home infusion setup - patient will be staying with his daughter local to [place].
A/P:
#Acute bacterial endocarditis with septic shock on admission with bacteremia
Cardio and ID followed
CM establishing home infusions
weaned off Dolbutamine on 12/08/24
#CAD s/p CABG
#Acute on Chronic HFrEF
#severe TR
#Afib/A.flutter, unspecified
#s/p MV ring annuloplasty in 2012
#Non-ischemic troponin elevation
patient CABG as per cath
Cardio followed
#COPD with emphysema, chronic
#HLD
cont home meds
#IV extravasation in L forearm
improving
#Blindness 2/2 long Hx of glaucoma s/p b/l lens replacement 18 years ago, now started to opacify.
with recent corneal transplant on R
L eye with glaucoma drain implant
Scheduled with national service officer on 12/23/24
#Dilation of the pancreatic duct within the body and neck of the pancreas with fatty atrophy of the head of the pancreas.
follow-up CT or MRI of the abdomen with attention to the pancreas could be performed, suggested timeframe of 6 months.
DVT ppx Xarelto
Full code
I have spent at least 58min reviewing chart, test results, communication with consultants and providing direct patient care
Anticipated Discharge: Today
Subjective/Interval History
-
Date of Service: December 15, 2024
Objective Data
-
Vital Signs:
Vital Signs
Temp Pulse Resp BP Pulse Ox
98.2 F 61 18 177/60 98
12/15/24 07:47 12/15/24 09:08 12/15/24 07:47 12/15/24 09:08 12/15/24 07:47
I&O
12/14/24 12/15/24 12/16/24
06:59 06:59 06:59
Intake Total 1188 / 1188 1680 / 1680
Output Total 1949 / 1949 1565 / 1565 150 / 150
Balance -762 / -762 115 / 115 -150 / -150
Review of Systems
-
History Source: Patient
All other systems: Reviewed and negative
Physical Exam
-
General: Well Developed, Well Nourished and No Apparent Distress
Neuro: Awake, Alert, Oriented and AO x 3
Psych: Calm
[2024-12-15 11:56] VITALS: BP 143/69
--- NOTE | 2024-12-15 12:10 | W.DCSUMMARY ---
Discharge Summary
Discharge Data
Date of Admission: 12/04/24
Date of Discharge: 12/15/24
-
Pending Results: No
Hospital Course
79yo M with PMHx of COPD, HFrEF, CAD s/p CABG, HLD, MV annuloplasty, well seated as per RATNA, PFO, A.flutter came with shock, concern for cardiogenic vs septic, initially on midodrine, then dobutamine, later found bacteremia with E.faecalis and had R
heart cath due to biventricular CHF (he wears a lifevest as OP, continue per his OP life care planner) with precapillary pulmonary hypertension on 12/07/24. RATNA on 12/10/24 with EF 40-45% and Echodensity measuring 1.0 cm x 0.8 cm attached the anterior
mitral leaflet. Managed for endocarditis, PICC placed on 12/14/24 as repeated Bcx NTD (agreed with ID). Cardiology signed off. CT abd without GI source of infection. Patient up-to-date with screening colonoscopy. Pending home infusion setup - patient
will be staying with his daughter local to [place]. Medically stable for d/c after CM confirms home infusion arranged. MRI of the abdomen with attention to the pancreas could be performed, suggested timeframe of 6 months - daughter and patient
verbalized understanding of the instructions
I have spent at least 58min reviewing chart, test results, communication with consultants and providing direct patient care
Patient was managed for:
#Acute bacterial endocarditis with septic shock on admission with bacteremia
#CAD s/p CABG
#Acute on Chronic HFrEF
#severe TR
#Afib/A.flutter, unspecified
#s/p MV ring annuloplasty in 2012
#Non-ischemic troponin elevation
#COPD with emphysema, chronic
#HLD
#IV extravasation in L forearm
#Blindness 2/2 long Hx of glaucoma s/p b/l lens replacement 18 years ago, now started to opacify.
#Lung emphysema
#DJD
#Renal cysts
#Hx of R hip prosthesis
#Dilation of the pancreatic duct within the body and neck of the pancreas with fatty atrophy of the head of the pancreas.
Discharge Plan
-
Referrals:
[facility] [Outside] (FAX [phone])
NONE,* [Family Provider] -
Franci Kauffman DO [Active] - in two to three weeks
Jeaneth Carter MD [Active] - in three to four weeks
Additional Discharge Medication Instructions: Ceftriaxone/Ampicillin through 01/18/25, then suppression with amoxicllin oral
Prescriptions:
New
ceftriaxone 2 gram Recon Soln
2,000 mg IV Q12H Qty: 0 0RF
Ampicillin 2000 MG
0.9% Sodium Chloride 100 ml [Nss] 100 ML
108 mls/hr IV Q4
Ordered By: Abdifatah Sosa MD
Last Taken: 12/15/24 08:48 108 mls
valsartan 40 mg Tablet
20 mg PO BID Qty: 60 0RF
metoprolol succinate 25 mg Tablet Extended Release 24 Hr
12.5 mg PO DAILY Qty: 15 0RF
Continued
furosemide 40 mg Tablet
40 mg PO DAILY
ofloxacin 0.3 % Drops
1 drp RIGHT EYE BID
therapeutic multivitamin Tablet
1 tab PO DAILY
prednisolone acetate 1 % Drops,Suspension
1 drp RIGHT EYE BID
ascorbic acid (vitamin C) [Vitamin C] 250 mg Tablet
250 mg PO DAILY
brimonidine 0.2 % Drops
1 drp RIGHT EYE BID
nitroglycerin 0.4 mg Tablet, Sublingual
0.4 mg SUBLINGUAL [id number] PRN (Reason: chest pain)
montelukast 10 mg Tablet
10 mg PO DAILY
doxylamine succinate 25 mg Tablet
12.5 mg PO HS
albuterol sulfate 90 mcg/actuation Hfa Aerosol Inhaler
2 puff INHALATION R Q6HPRN PRN (Reason: sob)
cholecalciferol (vitamin D3) [Vitamin D3] 25 mcg (1,000 unit) Tablet
25 mcg PO DAILY
Xarelto 20 mg Tablet
20 mg PO DAILY
dapagliflozin propanediol [Farxiga] 10 mg Tablet
10 mg PO DAILY
Entresto 24-26 mg Tablet
1 tab PO BID
Repatha SureClick 140 mg/mL Pen Injector
140 mg SC Q2W
Trelegy Ellipta 100-62.5-25 mcg Blister With Device
1 inh INHALATION R DAILY
ipratropium-albuterol 0.5 mg-3 mg(2.5 mg base)/3 mL Solution For Nebulization
3 ml inhalation R QID PRN (Reason: shortness of breath or wheezing) Qty: 90 0RF
Discontinued
metoprolol succinate 25 mg Tablet Extended Release 24 Hr
25 mg PO BID
Care Plan Goals
Care Plan Goals:
Problem: Readiness for enhanced knowledge related to diagnosis and treatment plan
Goal: Understand your diagnosis and treatment plan needs, including medications if applicable.
Instructions: Know your diagnosis, underlying causes and treatment plan options, including medications if applicable. Consult with your health care team to learn about your diagnosis and treatment plan, including medications if applicable.
Discharge Date and Time
Print Language: UKRAINIAN
--- NOTE | 2024-12-15 13:45 | CM ---
Addendum entered by BROOK Ross 12/15/24 16:38:
Placed a call to Patrick at [facility] who stated that she won't be able to meet patient at his house until tomorrow am. Will update attending. Unit updated.
Addendum entered by Licha Leonardo [facility] 12/15/24 14:09:
Attending updated.
Met with patient to update. He stated that he is looking forward to going home.
Patient stated that if he has to stay the night, he would like to know soon so that he can order dinner. Explanation provided that goal is for patient to return home today per attending and that he is medically stable for discharge.
Addendum entered by BETTE RossW 12/15/24 13:57:
Placed a call to Patrick from [facility] to confirm receipt of requested clinical as no call or communication has been received since this morning. Had to leave a voice mail.
Placed another call to Patrick to try and connect with her to confirm. She stated that she has not been alerted of fax however she will call her admin and make sure that it went through. She stated that she will text if nothing is received.
Thus far no text or call has been received.
Will call for update soon regarding when patient can be discharged (everything has been put into place).
Original Note:
Late entry note from this am.
Spoke with Patrick from [facility] this am. She requested that most recent labs, the script and the placement of the tip of the catheter be faxed to her at [phone].
Plan: Case management will continue to follow and assist with discharge planning. Home with IV ABX.
[2024-12-15 15:10] VITALS: BP 134/70
[2024-12-15] MEDS: NON-FORMULARY ITEM 12.5 MG PO (20:59)
[2024-12-15] MEDS: TYLENOL 650 MG PO (21:00)
[2024-12-15 23:00] VITALS: BP 138/55
[2024-12-16 03:00] VITALS: BP 121/91
[2024-12-16] MEDS: AMPICILLIN 108 MG IV ×2 (03:25→07:40)
[2024-12-16 06:00] VITALS: BMI 21.3
[2024-12-16] MEDS: TOPROL XL 12.5 MG PO (07:40)
[2024-12-16] MEDS: DIOVAN 20 MG PO (07:40)
[2024-12-16] MEDS: SINGULAIR 10 MG PO (07:40)
[2024-12-16] MEDS: MUCINEX 1200 MG PO (07:40)
[2024-12-16] MEDS: XARELTO 20 MG PO (07:41)
[2024-12-16] MEDS: LASIX 40 MG PO (07:41)
[2024-12-16] MEDS: NON-FORMULARY ITEM 1 DROP RIGHT EYE ×2 (07:42)
[2024-12-16] MEDS: MIRALAX PO (07:42)
[2024-12-16] MEDS: COLACE PO (07:42)
[2024-12-16] MEDS: OCUFLOX 1 DROP RIGHT EYE (07:42)
[2024-12-16 07:57] VITALS: BP 144/65
[2024-12-16] MEDS: NON-FORMULARY ITEM 1 INH INH (08:36)
--- NOTE | 2024-12-16 09:04 | W.PN.ID1 ---
Date of Service
Date of Service: December 16, 2024
Today's Communication
DC home when Home IV abx set up finalized.
Assessment / Plan
# MV endocarditis
# Enterococcus faecalis bacteremia (3 sets )
# Fever; resolved
# Recent RUL/RML PNA
# COPD
# CAD, HFrEF, Afib, MV repair with annuloplasty ring
# Cardiogenic hypotension off dobutamine
- 12/11 sputum - debra - normal shawanda
- 12/05 UA neg
- 12/06 bcx 07/22 set, 12/07 2 sets: + E. faecalis
- Blood cx's cleared 12/08
- CT a/p with po and IV contrast - > no GI source.
- Pt up to date with colonoscopy within 10 years.
- Appreciate cardiology. RATNA with mitral valve vegetation
- Continue Ampicillin 2g IV q4H plus ceftriaxone [id number]
- Will switch to ampicillin 12 g/day via continuous infusion at time of discharge.
- Continue IV antibiotics x 6 weeks from neg blood cx's, i.e through 01/18/25, then suppression with amoxicillin for retained MV annuloplasty ring.
- DC home when home IV set up.
-Follow-up with me in 3 to 4 weeks.
# LUE Phlebitis, reseolving
- offending PIV has been removed; US with SVT
- repeat blood cultures x2 no growth to date
#Additional Past Medical History:
COPD
Afib
Cardiomyopathy requiring lifevest
CAD s/p CABG x 2
Mitral valve annuloplasty ring
HTN
Blind
hx cornea transplant
Chief Complaint
-: Bacteremia and Other (Mitral valve endocarditis)
Subjective / Review of Systems
Has intermittent left calf spasms 'Fredrick horse', none overnight.
Vital Signs / Physical Exam
Vital Signs
Vital Signs
Temp Pulse Resp BP Pulse Ox
98.1 F 67 18 144/65 95
12/16/24 07:57 12/16/24 07:57 12/16/24 07:57 12/16/24 07:57 12/16/24 07:57
Physical Exam
Constitutional: No Acute Distress and Comfortable
Cardiovascular: Regular Rate and S1/S2
Pulmonary: Clear
Gastrointestinal: Soft, Non Tender, Non Distended and Normal Bowel Sounds
Extremities: Negative Edema
Skin: Other (left forearm resolving induration without erythema at previous PIV site)
Neurological: AO x 3
Lines: PICC (RUE no erythema)
Objective Data
Lab Data
Lab Results
12/14/24 06:31
12/14/24 06:31
Estimated Creat Clear 61 ml/min 12/14/24 06:31
Lactic Acid 1.5 mmol/L (0.7-2.0) 12/05/24 14:30
Total Bilirubin 0.6 mg/dl (0.2-1.3) 12/14/24 06:31
AST 16 U/L (17-59) L 12/14/24 06:31
ALT 14 U/L (0-50) 12/14/24 06:31
Alkaline Phosphatase 61 U/L (38-126) 12/14/24 06:31
Most recent labs reviewed.
Micro Results:
12/12/24 21:00 Blood Culture - Preliminary
Blood/Venous No Growth in 72 hours- Final report to follow
12/12/24 20:16 Blood Culture - Preliminary
Blood/Venous No Growth in 72 hours- Final report to follow
12/07/24 10:54 Blood Culture - Final
Blood/Venous Enterococcus faecalis
Gram Stain - Final
12/07/24 09:55 Blood Culture - Final
Blood/Venous Enterococcus faecalis
Gram Stain - Final
12/09/24 03:26 Blood Culture - Final
Blood/Venous No Growth - Final Report
12/08/24 14:36 Blood Culture - Final
Blood/Venous No Growth - Final Report
12/08/24 11:23 Blood Culture - Final
Blood/Venous No Growth - Final Report
12/06/24 14:34 Blood Culture - Final
Blood/Venous Enterococcus faecalis
Gram Stain - Final
12/10/24 06:33 Respiratory Culture - Final
Sputum Debra albicans
Gram Stain - Final
12/06/24 13:46 Influenza Types A & B ([place]) - Final
Nasal Swab Negative for Influenza A & B, NAAT
Negative results must be combined with clinical observations
and patient history.
Nucleic Acid Amplification test (NAAT)performed on the
Compario platform.
12/05/24 15:31 Legionella Urinary Antigen - Final
Urine Negative for Legionella pneumophila Serogroup 1 antigen.
A negative result does not rule out the possiblity of
Legionella infection due to other serogroups or species of
Legionella. Clinical correlation is recommended.
Streptococcus pneumoniae Antigen (M - Final
Negative for Streptococcus pneumoniae antigen.
A negative result does not exclude infection with
Streptococcus pneumoniae. Clinical correlation is
recommended.
Imaging:
12/05/24 CT chest: Severe apical predominant emphysematous changes which are similar in appearance to prior. There are decreased size of the opacities within the lateral right upper lobe and right middle lobe which are favored to represent improving
pneumonia. Additionally there is decreased size of the right hilar lymph node which is likely reactive.
12/04/24 CXR: No acute cardiopulmonary process within the limitations as described.
Echocardiography:
12/10/2024 RATNA: Normal LV size and wall thickness. EF approximately 40%. Well-seated mitral annuloplasty ring. Echodensity measuring 1.0 x 0.8 cm attached to the anterior mitral leaflet concerning for vegetation.
12/04/2024 TTE: EF approximately 40%. Septal straightening consistent with RV pressure or volume overload. Status post mitral valve repair. Mild to moderate mitral regurgitation and thickened mitral leaflets noted.
--- NOTE | 2024-12-16 09:53 | PN.CDI ---
Addendum entered and electronically signed by Abdifatah Sosa MD 12/16/24 10:40:
pressors and infection - cannot exclude septic shock
Original Note:
CDI
- -
CDI:
Physician Documentation Request
Admit Date: 12/04/24 04:44
Dear Doctor Sheila,
12/15 progress note states 'Acute bacterial endocarditis with septic shock on admission with bacteremia'
Per documented vital signs pt remained afebrile 12/04-
12/03- heart rates documented between 55-89
12/03- respiratory rates 15-32
Initial wbc
Laboratory Tests
12/03/24 12/05/24
23:23 03:51
WBC 10.0 8.8
�Sepsis
-Systemic manifestations of infection, with 2 or more SIRS criteria which include:
-Fever > 100.9 F or hypothermia < 96.8 F
-Leukocytosis WBC > 12,000 or leukopenia, WBC < 4,000, or > 10% bands
-Tachycardia- > 90 beats/minute
-Tachypnea- RR > 20 breaths/minute or PaCO2 < 32mmHg
Source: Merck Manual 2013
Based on the above information and the recognized standard for Sepsis could you please verify this diagnoses is still accurate and reflective of the patient�s condition to ensure quality of the medical record.
Please clarify in the Progress Notes:
�Sepsis was present on admission and is a clinical diagnosis based on (please include this additional support in the medical record)
�After Sepsis present on admission has been ruled out
�Other
Use of terms such as suspected, likely, concern for, or probable (associated with a specific diagnosis that is being evaluated, monitored, or treated as if it exists) are acceptable and can be coded in the inpatient setting, when documented at the
time of discharge.
Thank you,
Joanna Schulz RN, BSN
CDI Specialist
tiger text
Please use your independent medical judgment in providing your response.
--- NOTE | 2024-12-16 10:10 | PN.CDI ---
CDI
- -
CDI:
Physician Documentation Request
Admit Date: 12/04/24 04:44
Dear Doctor Becky,
Patient presented to ED for chills, fatigue, nonproductive cough and lethargy
Patient's blood cultures were positive for Enterococcus faecalis on 12/06 and 12/07
12/11 cardiology note states 'Enterococcus faecalis endocarditis....EE 12/10/24 with likely mitral valve vegetation'
Please clarify the following:
Endocarditis was present on admission
Endocarditis was not present on admission
Unable to determine
Use of terms such as suspected, likely, concern for, or probable (associated with a specific diagnosis that is being evaluated, monitored, or treated as if it exists) are acceptable and can be coded in the inpatient setting, when documented at the
time of discharge.
Thank you,
Joanna Schulz RN, BSN
CDI Specialist
tiger text
Please use your independent medical judgment in providing your response.
--- NOTE | 2024-12-16 10:17 | PN.CDI ---
CDI
- -
CDI:
Physician Documentation Request
Admit Date: 12/04/24 04:44
Dear Doctor Becky,
Patient found to have Enterococcus faecalis endocarditis
Patient history includes Mitral valve disease status post mitral valve ring annuloplasty 2012
Please clarify if a relationship exist between these conditions:
Yes, Endocarditis is related to/associated with/due to previous mitral valve repair
No, Endocarditis is not related to/associated with/due to previous mitral valve repair
Unable to determine
Use of terms such as suspected, likely, concern for, or probable (associated with a specific diagnosis that is being evaluated, monitored, or treated as if it exists) are acceptable and can be coded in the inpatient setting, when documented at the
time of discharge.
Thank you,
Joanna Schulz RN, BSN
CDI Specialist
tiger text
Please use your independent medical judgment in providing your response.
--- NOTE | 2024-12-16 10:29 | W.PN.HOSP.TC ---
Today's Communication/Plan
-
pendign home infusions arrangement
medically stable for d/c
Assessment / Plan
Assessment / Plan
79yo M with PMHx of COPD, HFrEF, CAD s/p CABG, HLD, MV annuloplasty, well seated as per RATNA, PFO, A.flutter came with shock, concern for cardiogenic vs septic, initially on midodrine, then dobutamine, later found bacteremia with E.faecalis and had R
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 RATNA on 12/10/24 with EF 40-45% and Echodensity measuring 1.0 cm x 0.8 cm attached the anterior
mitral leaflet. Managed for endocarditis, PICC placed on 12/14/24 as repeated Bcx NTD (agreed with ID). Cardiology signed off. Pending home infusion setup - patient will be staying with his daughter local to [place]. medically stable for d/c
pending home infusion arrangement by CM
A/P:
#Acute bacterial endocarditis with septic shock on admission with bacteremia
Cardio and ID followed
CM establishing home infusions
weaned off Dolbutamine on 12/08/24
#CAD s/p CABG
#Acute on Chronic HFrEF
#severe TR
#Afib/A.flutter, unspecified
#s/p MV ring annuloplasty in 2012
#Non-ischemic troponin elevation
patient CABG as per cath
Cardio followed
#COPD with emphysema, chronic
#HLD
cont home meds
#IV extravasation in L forearm
improving
#Blindness 2/2 long Hx of glaucoma s/p b/l lens replacement 18 years ago, now started to opacify.
with recent corneal transplant on R
L eye with glaucoma drain implant
Scheduled with cost accounting analyst on 12/23/24
#Dilation of the pancreatic duct within the body and neck of the pancreas with fatty atrophy of the head of the pancreas.
follow-up CT or MRI of the abdomen with attention to the pancreas could be performed, suggested timeframe of 6 months.
DVT ppx Xarelto
Full code
I have spent at least 58min reviewing chart, test results, communication with consultants and providing direct patient care
Anticipated Discharge: Today
Subjective/Interval History
-
Date of Service: December 16, 2024
Objective Data
-
Vital Signs:
Vital Signs
Temp Pulse Resp BP Pulse Ox
98.1 F 67 18 144/65 95
12/16/24 07:57 12/16/24 07:57 12/16/24 07:57 12/16/24 07:57 12/16/24 09:56
I&O
12/15/24 12/16/24 12/17/24
06:59 06:59 06:59
Intake Total 1680 / 1680 1068 / 1068
Output Total 1565 / 1565 2600 / 2600
Balance 115 / 115 -1532 / -1532
Review of Systems
-
History Source: Patient
All other systems: Reviewed and negative
Physical Exam
-
General: No Apparent Distress
HEENT: Normocephalic
Neuro: Awake, Alert, Oriented and AO x 3
Psych: Calm
[2024-12-16 11:59] VITALS: BP 166/81
[2024-12-16 16:12] VITALS: BP 141/72
--- NOTE | 2024-12-16 16:17 | DOWNTIME ---
There was a [employer] Client [employer] Operator Downtime on 12/16/2024 from 1230 to 12/16/2024 at 1550. Downtime documentation of patient's care, including medication administrations, has been reconciled in the electronic record per guidelines. Refer to the
patient's paper chart under the miscellaneous tab to see printed paper medication records and downtime forms.
== END 2024-12-16 13:30 | disposition home health service (06) | DRG 286 ==
LOC: 4 EAST ACU 04:44
PROVIDERS: Hospitalist; Internal Medicine; Internal Medicine Cardiovascular Disease; Internal Medicine Critical Care Medicine; Internal Medicine Interventional Cardiology; Nurse Practitioner Family; ADMITTING PHYSICIAN Hospitalist; ATTENDING PHYSICIAN Internal Medicine; CONSULT PHYSICIAN Internal Medicine Cardiovascular Disease; CONSULT PHYSICIAN Internal Medicine Critical Care Medicine; CONSULT PHYSICIAN Internal Medicine Infectious Disease; EMERGENCY PHYSICIAN Student in an Organized Health Care Education/Training Program
PROC: B2141ZZ Fluoroscopy of Right Heart using Low Osmolar Contrast (ICD-10-PCS; 2024-12-07)
PROC: 4A023N6 Measurement of Cardiac Sampling and Pressure, Right Heart, Percutaneous Approach (ICD-10-PCS; 2024-12-07)
PROC: B2111ZZ Fluoroscopy of Multiple Coronary Arteries using Low Osmolar Contrast (ICD-10-PCS; 2024-12-07)
PROC: B24BZZ4 Ultrasonography of Heart with Aorta, Transesophageal (ICD-10-PCS; 2024-12-10)
PROC: 02HV33Z Insertion of Infusion Device into Superior Vena Cava, Percutaneous Approach (ICD-10-PCS; 2024-12-14)
DX: T82.6XXA Infection and inflammatory reaction due to cardiac valve prosthesis, initial encounter (principal); A41.9 Sepsis, unspecified organism; I33.0 Acute and subacute infective endocarditis; I50.23 Acute on chronic systolic (congestive) heart failure; J18.9 Pneumonia, unspecified organism; R65.21 Severe sepsis with septic shock; J44.0 Chronic obstructive pulmonary disease with (acute) lower respiratory infection; I48.92 Unspecified atrial flutter; Z87.891 Personal history of nicotine dependence; I48.0 Paroxysmal atrial fibrillation; E78.00 Pure hypercholesterolemia, unspecified; Y83.8 Other surgical procedures as the cause of abnormal reaction of the patient, or of later complication, without mention of misadventure at the time of the procedure
CPT/HCPCS: 71045; 71046; 71260; 74177; 80048; 80053; 81003; 81015; 82533; 83605; 83735; 83880; 84145; 84443; 84484; 85025; 85027; 87040; 87070; 87154; 87186; 87205; 87449; 87502; 87811; 87899; 92610; 93005; 93306; 93312; 93320; 93325; 93451; 93971; 94640; 96365; 97116; 97163; 97530; 99285; C1769; C1894; Q9967

== ENCOUNTER 2025-01-06 12:08 | Emergency (ER) | payer MEDICARE, BC, SELFPAY ==
[2025-01-06 12:13] VITALS: BP 141/69
--- NOTE | 2025-01-06 14:27 | ED.GENMED ---
History of Present Illness
General
Chief Complaint: Vascular Access Problem
Time Seen by Provider: 01/06/25 12:46
History of Present Illness
History of Present Illness:
79-year-old male presents to the emergency department for evaluation of an accidental dislodgment of his right upper extremity PICC line. He is scheduled to continue outpatient antibiotic infusions for 12 more days due to endocarditis. Denies any
pain to the right upper extremity at this time
Review of Systems
Review of Systems
Allergies reviewed?: Yes
All Other Systems: ROS reviewed and negative except as documented in HPI and ROS
Phy Exam
Physical Exam
Physical Exam:
GEN: Well appearing, NAD, WDWN
HEENT: Oral mucosa moist, no scleral icterus
Cardiac: Regular rate
Lung: No respiratory distress, no tachypnea
MSK: No gross deformity or injuries, no right upper extremity edema, punctate insertion site of prior PICC line noted without active bleeding
Skin: Good color, no pallor or jaundice, no rashes
Neuro: AO x3, moves all extremities freely
Psych: Calm, cooperative
Course
Orders/Labs/Results
Orders:
Orders
01/06/25 13:48
Midline IV As Directed
Vital Signs
Initial and Last Documented VS:
Initial Vital Signs
Temp Pulse Resp BP Pulse Ox
97.9 F 66 18 141/69 95
01/06/25 12:13 01/06/25 12:13 01/06/25 12:13 01/06/25 12:13 01/06/25 12:13
Last Documented Vital Signs
Temp Pulse Resp BP Pulse Ox
97.9 F 66 18 141/69 95
01/06/25 12:13 01/06/25 12:13 01/06/25 12:13 01/06/25 12:13 01/06/25 14:29
MDM/Problems Addressed
MDM/Problems Addressed:
Midline was placed by IV team at the bedside, patient discharged to continue outpatient infusions
*Pulse Oximetry
SaO2: 95
Oxygen Mode of Delivery: Room air
*Critical Care Note
Total Time (30-74mins, 75-104mins- exclusive of procedures): Not Applicable
ED Attending Note
-
Portions of this chart may have been created with voice recognition software.� Occasional wrong word or��sound alike� substitutions may have occurred due to the inherent limitations of voice recognition software.
Discharge Plan
Departure
Patient Disposition: Home (Routine Discharge)
Date of Disposition: 01/06/25
Time of Disposition: 14:27
Patient with high blood pressure during this ER visit?: No
Discharge Problem:
Dislodged PICC line
Instructions: Peripherally-Inserted Central Catheter (DC)
Prescriptions:
No Action
furosemide 40 mg Tablet
40 mg PO DAILY
ofloxacin 0.3 % Drops
1 drp RIGHT EYE BID
therapeutic multivitamin Tablet
1 tab PO DAILY
prednisolone acetate 1 % Drops,Suspension
1 drp RIGHT EYE BID
ascorbic acid (vitamin C) [Vitamin C] 250 mg Tablet
250 mg PO DAILY
brimonidine 0.2 % Drops
1 drp RIGHT EYE BID
nitroglycerin 0.4 mg Tablet, Sublingual
0.4 mg SUBLINGUAL [id number] PRN (Reason: chest pain)
montelukast 10 mg Tablet
10 mg PO DAILY
doxylamine succinate 25 mg Tablet
12.5 mg PO HS
albuterol sulfate 90 mcg/actuation Hfa Aerosol Inhaler
2 puff INHALATION R Q6HPRN PRN (Reason: sob)
cholecalciferol (vitamin D3) [Vitamin D3] 25 mcg (1,000 unit) Tablet
25 mcg PO DAILY
Xarelto 20 mg Tablet
20 mg PO DAILY
dapagliflozin propanediol [Farxiga] 10 mg Tablet
10 mg PO DAILY
Entresto 24-26 mg Tablet
1 tab PO BID
Repatha SureClick 140 mg/mL Pen Injector
140 mg SC Q2W
Trelegy Ellipta 100-62.5-25 mcg Blister With Device
1 inh INHALATION R DAILY
ipratropium-albuterol 0.5 mg-3 mg(2.5 mg base)/3 mL Solution For Nebulization
3 ml inhalation R QID PRN (Reason: shortness of breath or wheezing) Qty: 90 0RF
Ampicillin 2000 MG
0.9% Sodium Chloride 100 ml [Nss] 100 ML
108 mls/hr IV Q4
Ordered By: Abdifatah Sosa MD
Last Taken: Unknown
metoprolol succinate 25 mg Tablet Extended Release 24 Hr
12.5 mg PO DAILY Qty: 15 0RF
ceftriaxone 2 gram Recon Soln
2,000 mg IV Q12H Qty: 0 0RF
valsartan 40 mg Tablet
20 mg PO BID Qty: 60 0RF
Activity Restrictions/Additional Instructions:
For the abrasion to the right upper extremity please change the dressing each day And wash with soap and water. Redress with nonstick gauze and Vaseline
Interventions
Interventions:
*Risk Screen - Suicide Last Done: 01/06/25 12:13
*General Assessment Last Done: 01/06/25 13:05
*Neglect/Abuse Screening Last Done: 01/06/25 12:13
*ED- Fall Risk Assessment Last Done: 01/06/25 13:05
*ED COVID-19 Vaccine History Last Done: 01/06/25 13:05
*Nursing Disposition Last Done: 01/06/25 14:44
Discharge Date and Time
Discharge Date/Time: 01/06/25 14:45
Print Language: WOLOF
== END 2025-01-06 14:45 | disposition home or self-care (01) ==
LOC: EMR 12:08
PROVIDERS: EMERGENCY PHYSICIAN Emergency Medicine; FAMILY PHYSICIAN Family Medicine
DX: T82.524A Displacement of infusion catheter, initial encounter (principal); Y92.9 Unspecified place or not applicable
CPT/HCPCS: 99282